=== PATIENT | female | born 1945 | race Caucasian/White ===

== ENCOUNTER 2017-12-17 14:25 | Inpatient (IN) | payer MEDICARE, OTHER ==
[2017-12-17] MEDS ORDERED: Diltiazem 125 MG/25 ML ONE (14:40)
[2017-12-17] MEDS ORDERED: traMADol HCl 50 MG TAB ONE (16:10)
[2017-12-17] MEDS ORDERED: Morphine 2 MG/ML SYRINGE ONE (18:13)
[2017-12-17] MEDS ORDERED: Acetaminophen 325 MG TAB PO PRN (20:01)
[2017-12-17] MEDS ORDERED: Ondansetron ODT 4 MG TAB SL PRN (20:01)
[2017-12-17] MEDS ORDERED: Ondansetron HCl/PF 4 MG/2 ML Vial IVP PRN (20:01)
[2017-12-17 21:51] VITALS: BMI 24.5
[2017-12-18] MEDS ORDERED: Acetaminophen 325 MG TAB PO PRN (00:01)
[2017-12-18] MEDS ORDERED: HYDROcodone/Acetaminophen 10/325 mg Tablet PO PRN (00:01)
[2017-12-18] MEDS ORDERED: Ondansetron ODT 4 MG TAB PO PRN (00:01)
[2017-12-18] MEDS ORDERED: Diltiazem 125 MG in Sodium Chloride 0.9% 100 ML IVPB SCH (00:01)
[2017-12-18] MEDS ORDERED: Enoxaparin Sodium 80 MG/0.8 ML SYRINGE SC SCH (00:30)
[2017-12-18 01:01] LABS: CKMB 1.6 ng/mL (0-6.6); Troponin I 0.015 ng/mL (< 0.028)
[2017-12-18 04:41] LABS: #Eosinphils 0.1 thou/uL (0.0-0.7); #Lymphocytes 1.2 thou/uL (1.20-3.40); #Monocytes 0.7 thou/uL (0.11-0.59); #Neutrophils 5.5 thou/uL (1.40-6.50); %Basophils 0.1 % (0.0-1.0); %Eosinophils 1.5 % (0.0-10.0); %Lymphocytes 15.7 % (21.0-51.0); %Monocytes 9.7 % (0.0-10.0); %Neutrophils 73.1 % (42.0-75.0); Hemoglobin 11.9 g/dL (12.0-16.0); Mean Corpuscular HGB CONC 32.8 g/dL (32.0-36.0); Mean Corpuscular Hemoglobin 32.9 pg (27.0-31.0); Mean Platelet Volume 8.5 fL (7.4-10.4); Platelet Count 237 thou/uL (130-400); RBC Distribution Width 12.1 % (11.5-14.5); Red Blood Cell (RBC) Count 3.61 mill/uL (4.20-5.40); White Blood Cell (WBC) Count 7.6 thou/uL (4.8-10.8)
[2017-12-18 04:58] LABS: ALT (SGPT) 24 U/L (8-55); AST (SGOT) 20 U/L (5-34); Albumin 3.8 g/dL (3.4-4.8); Alkaline Phosphatase 78 U/L (40-150); Anion Gap 12 mmol/L (10-20); BUN (Urea Nitrogen) 14 mg/dL (9.8-20.1); Calc. Creatinine Clearance 65 mL/min (70-130); Calcium 9.5 mg/dL (7.8-10.44); Carbon Dioxide 25 mmol/L (23-31); Cardiac Risk 4.4 (Less than 4.5); Chloride 106 mmol/L (98-107); Cholesterol 189 mg/dl (< 200 Desired); Estimated GFR-MDRD 65; Globulin 2.6 g/dL (2.4-3.5); Glucose 114 mg/dL (83-110); HDL Cholesterol 43 mg/dL (>60 Neg Risk); LDL Cholesterol, Calculated 130 mg/dL; Magnesium 2.2 mg/dL (1.6-2.6); Potassium 4.8 mmol/L (3.5-5.1); Protein, Total 6.4 g/dL (6.0-8.3); Sodium 138 mmol/L (136-145); Triglycerides 79 mg/dL (Less than 150)
[2017-12-18] MEDS: Levothyroxine Sodium 50 MCG TAB PO SCH (05:34)
--- NOTE | 2017-12-18 06:10 | HP ---
DATE OF ADMISSION: 12/17/2017 TIME OF SERVICE: 2315 hours. CHIEF COMPLAINT: Atrial fibrillation with rapid ventricular response. HISTORY OF PRESENT ILLNESS: Ms. Rojas is a 72-year-old white female with history of stage IV colon cancer, currently in remission status post colectomy in 2011, who at that time developed an episode of atrial fibrillation, later in the ICU for 3 days and a cardiology workup that was apparently unremarkable. She also had COPD, hypertension, hypothyroidism. Patient was in normal state of health until of last week. On that day, she began feeling just overall ill. She actually states that she stayed in bed for pretty of whole weekend. Today around 07:30, day of admission 12/17/2017, she developed palpitations and felt somewhat short of breath. It was similar to a previous atrial fibrillation course a few years ago. She went to an outside Emergency Department in [place]. There, she was found to have atrial fibrillation with RVR. Labs, chest x-ray were done. She was started on Cardizem drip and transferred here. Upon arrival, her rate is better. Blood pressure is stable. She complains of headache, but better with Tylenol. We were called for admission. PRIMARY CARE PHYSICIAN: Dr. Flip Johnson in [place]. PRIMARY SITE SPECIALIST: in [place]. PAST MEDICAL HISTORY: 1. Paroxysmal atrial fibrillation, last episode in 2011. 2. Stage IV colon cancer, currently in remission. 3. Chronic obstructive pulmonary disease. 4. Hypertension. 5. Hypothyroidism. PAST SURGICAL HISTORY: 1. Partial colectomy on 12/26/2011. 2. Cataracts 10 years ago. 3. Hysterectomy, partial followed by complete in about 36 years ago. HOME MEDICATIONS: 1. Verapamil 120 mg p.o. daily. 2. Levothyroxine 50 mcg daily. 3. Gabapentin 300 mg p.o. b.i.d. 4. Lasix 20 mg p.o. daily. 5. Aspirin 81 mg daily. 6. Docusate 100 mg p.o. daily. 7. Advair 250/50 one puff p.o. b.i.d. ALLERGIES: NKDA. FAMILY HISTORY: Negative for clotting disorder. No immune dysfunction. SOCIAL HISTORY: No habits x3. She denied smoking for detention and quit about 8 years ago. REVIEW OF SYSTEMS: A 10-point review of systems was performed, negative for all other systems except as per HPI. PHYSICAL EXAMINATION: VITAL SIGNS: Temperature 98.3, pulse 112, blood pressure 139/94, respiratory rate 18, satting 100% on 2 liters. GENERAL: She is awake. She is alert, she is oriented x3. She is an older white female, appears to be in no acute distress. HEENT: Normocephalic, atraumatic. Pupils equal, round, reactive bilaterally, mucous membrane moist. She had no visible lesions. No thrush. She has bilateral pseudophakia. NECK: Supple, without lymphadenopathy, JVD, or thyromegaly. Normal carotid upstrokes without bruits. LUNGS: Clear. She has no wheezing. No rales or rhonchi. CARDIOVASCULAR: She is irregularly irregular with a normal rate. She has normal S1 and S2. I do not appreciate S3 or S4. No audible murmurs. ABDOMEN: Soft, nontender, nondistended with good bowel sounds. No rebound, rigidity or guarding. EXTREMITIES: No cyanosis or clubbing. Trace pedal edema. She has 1-2+ dorsalis pedis and posterior tibial pulses. SKIN: Warm and well perfused. No rashes or lesions. NEUROLOGIC: Cranial nerves II-XII grossly intact. No focal neurologic deficits. MUSCULOSKELETAL: Normal to inspection. She has no inflamed joints, no palpable effusions. PREOPERATIVE LABORATORY DATA: Sodium 141, potassium 5.0, chloride 101, bicarb 28, BUN 18, creatinine 0.9, glucose of 121, calcium 9.3. Liver function normal. CBC showed a white count of 7.6, hemoglobin 13.0, hematocrit of 41.2, platelet count is 252,000. BNP is elevated at 1560. INR is 1.0. CK-MB of 2.3 and troponin I is undetectable less than 0.05. These were drawn at the outside facility. Chest x-ray showed no acute cardiopulmonary disease. ASSESSMENT AND PLAN: 1. Paroxysmal atrial fibrillation. 2. Atrial fibrillation with rapid ventricular response. Currently rate controlled on Cardizem drip. We will titrate down. The likely transition to p.o. Cardizem in the morning. I have asked Cardiology to evaluate regarding treatment options such as antiarrhythmic versus ablation and assistance and selection of her anticoagulation. 3. History of chronic obstructive pulmonary disease with minimal exacerbation. P.r.n. nebs. No steroids at this time. 4. Stage IV colon cancer, currently in remission status post partial colectomy in 2011. Stable. 5. Hypertension. Patient is on verapamil. Blood pressure has been borderline on the Cardizem drip. We will continue to monitor. The Cardizem drip is about to be turned down from 15 to 10 per protocol. 6. Hypothyroidism, on levothyroxine. We will continue. 7. Elevated BNP. The patient certainly could have minimal or mild chronic obstructive pulmonary disease exacerbation with atrial stretch. We will get a 2D echocardiogram to better assess her cardiac function. MTDD
[2017-12-18] MEDS ORDERED: Prevnar 13-Val Conj/PF 0.5 ML SYRINGE IM ONE (08:00)
[2017-12-18] MEDS ORDERED: FLU VACC TS2017-18 (>65YR) 0.5 ML SYRINGE IM ONE (08:00)
--- NOTE | 2017-12-18 09:30 | RAD ---
CHEST ONE VIEW: History: Cough and congestion. FINDINGS: No comparison. Cardiac silhouette is magnified and upper limits of normal in size. Pulmonary vasculat ure is also upper limits of normal. Patchy bibasilar infiltrates are present, right greater than left . Mediastinum is midline with aortic calcification. There is no evidence of pneumothorax. Cardiac mon itor leads overlie the chest. IMPRESSION: 1. Patchy bibasilar infiltrates, right greater than left. Clinical correlation regarding other signs and symptoms of bibasilar pneumonitis is required. Continued radiographic follow up is suggested. 2. Atherosclerosis. POS: [facility]
[2017-12-18] MEDS: Aspirin 81 mg Enteric Coated Tablet PO SCH (09:41)
[2017-12-18] MEDS: Famotidine 20 MG TAB PO SCH ×2 (09:42→20:06)
[2017-12-18] MEDS: Furosemide 20 MG TAB PO SCH (09:42)
[2017-12-18] MEDS: Gabapentin 300 MG CAP PO SCH ×2 (09:42→20:06)
[2017-12-18] MEDS: HYDROcodone/Acetaminophen 5/325 mg Tablet PO PRN ×2 (09:45→16:14)
[2017-12-18 09:54] LABS: CKMB 1.6 ng/mL (0-6.6); Troponin I 0.011 ng/mL (< 0.028)
--- NOTE | 2017-12-18 10:49 | CON ---
DATE OF CONSULTATION: 12/18/2017 This is a 72-year-old female from [place], [place] who recently moved from [place], presents wit h a several day history of shortness of breath, cough, wheezing and palpitation. She has known history of atrial fibrillation. She has no local physician over here, but presented via her [place] primary care doctor over there is Dr. Johnson. She has smoked a pack and a half almost 50 years, quit smoking several years ago. No previous histor y of TB, pneumonia or bronchial asthma. She was coughing up some blood tinged sputum, yellow sputum, but no fever or chills. She says on most days she can walk a mile without getting markedly short of breath. PAST MEDICAL HISTORY: 1. Chronic atrial fibrillation. 2. Chronic obstructive pulmonary disease. 3. Tobacco abuse. 4. Colon cancer stage IV. Surprisingly, she had chemotherapy only for 6 weeks. She had surgery wit h resection of extensive metastatic lymph nodes that were positive, but she has been disease free for the last several years. 5. Additionally, she has history of hypothyroidism. PAST SURGICAL HISTORY: Colon resection and hysterectomy. MEDICATIONS: From home includes verapamil 120, Lasix 20, gabapentin 300, omeprazole 20, Cozaar 50, S ynthroid 50, aspirin 81. ALLERGIES: CODEINE. SOCIAL/FAMILY HISTORY: Unremarkable. REVIEW OF SYSTEMS: Ten point negative. PHYSICAL EXAMINATION: VITAL SIGNS: Blood pressure 190/60, sats 94% on 2 liters, respiration 20, temperature 96. CHEST: Chest revealed bilateral crackles. CARDIAC: Normal S1-S2. No gallops. ABDOMEN: Soft. No masses. LABORATORY: White count 7000, H&H 11 and 36, platelet count normal. Electrolytes are normal. X-ray shows infiltrates bilaterally, possibly pneumonia, superimposed congestive heart failure. IMPRESSION: 1. Severely bronchitis, possibly pneumonia. 2. Atrial fibrillation. 3. Congestive heart failure. 4. Tobacco abuse. 5. Colon cancer. 6. Hypothyroidism. PLAN: Antibiotic was initiated. Continue Cardizem, Lovenox, nebulizer treatments. I will follow.
--- NOTE | 2017-12-18 11:57 | PDOC.PN ---
- Subjective Encounter Start Date: 12/18/17 Encounter Start Time: 08:45 Subjective: no c/o palp or chest pain -: has sob - Objective Resuscitation Status: Resuscitation Status FULL:Full Resuscitation MAR Reviewed: Yes Vital Signs & Weight: Vital Signs (12 hours) Temp Pulse Resp BP BP Pulse Ox 12/18/17 08:00 99.6 F 99 18 119/60 93 L 12/18/17 03:45 98.2 F 85 18 91/48 L 92 L 12/18/17 00:01 98.5 F 94 20 89/42 L 94 L Weight Weight 156 lb 8 oz I&O: 12/17/17 12/18/17 12/19/17 06:59 06:59 06:59 Intake Total 432 Balance 432 Result Diagrams: 12/18/17 03:56 12/18/17 03:56 Phys Exam - Physical Examination HEENT: PERRLA, moist MMs Neck: no JVD, supple Respiratory: no wheezing, no rales Cardiovascular: no significant murmur, irregular Gastrointestinal: soft, non-tender, positive bowel sounds Musculoskeletal: no edema, pulses present Neurological: non-focal, moves all 4 limbs Psychiatric: A&O x 3 Dx/Plan (1) Atrial flutter Code(s): I48.92 - UNSPECIFIED ATRIAL FLUTTER Status: Acute (2) Afib Code(s): I48.91 - UNSPECIFIED ATRIAL FIBRILLATION Status: Chronic Qualifiers: Atrial fibrillation type: paroxysmal Qualified Code(s): I48.0 - Paroxysmal atrial fibrillation (3) PNA (pneumonia) Code(s): J18.9 - PNEUMONIA, UNSPECIFIED ORGANISM Status: Acute Qualifiers: Pneumonia type: due to unspecified organism Laterality: bilateral (4) COPD (chronic obstructive pulmonary disease) Status: Chronic Qualifiers: COPD type: COPD with acute exacerbation Qualified Code(s): J44.1 - Chronic obstructive pulmonary disease with (acute) exacerbation (5) HTN (hypertension) Code(s): I10 - ESSENTIAL (PRIMARY) HYPERTENSION Status: Chronic Qualifiers: Hypertension type: essential hypertension Qualified Code(s): I10 - Essential (primary) hypertension (6) Hypothyroidism Code(s): E03.9 - HYPOTHYROIDISM, UNSPECIFIED Status: Chronic Qualifiers: Hypothyroidism type: unspecified Qualified Code(s): E03.9 - Hypothyroidism , unspecified (7) H/O malignant neoplasm of colon Code(s): Z85.038 - PERSONAL HISTORY OF MALIGNANT NEOPLASM OF LARGE INTESTINE Status: Chronic Comment: prior h/o colectomy - Plan has atrial flutter this am -: cardio consult, echo got done this am -: is on cardizem drip, lovenox 70mg q12h -: doxy, prednisone and nebs -: watch for hypotension with sbp around 100, has oral lasix 20mg (bnp 1560) * . Review of Systems - Medications/Allergies Allergies/Adverse Reactions: Allergies Allergy/AdvReac Type Severity Reaction Status Date / Time codeine Allergy Verified 12/18/17 03:51 Medications: Current Medications Acetaminophen (Tylenol) 650 mg PO Q4H PRN PRN Reason: Headache/Fever or Pain Last Admin: 12/18/17 02:38 Dose: 650 mg Hydrocodone Bitart/Acetaminophen ([place] 10/325) 1 tab PO Q4H PRN PRN Reason: Severe Pain (7-10) Hydrocodone Bitart/Acetaminophen ([place] 5/325) 1 tab PO Q4H PRN PRN Reason: Moderate Pain (4-6) Last Admin: 12/18/17 09:45 Dose: 1 tab Albuterol/Ipratropium (Duoneb) 3 ml NEB Q4H PRN PRN Reason: SOB &/or Wheezing Albuterol/Ipratropium (Duoneb) 3 ml NEB [id number] [facility] Aspirin (Ecotrin) 81 mg PO DAILY [facility] Last Admin: 12/18/17 09:41 Dose: 81 mg Doxycycline Hyclate (Vibramycin) 100 mg PO BID [facility] Enoxaparin Sodium (Lovenox) 70 mg SC 0900,2100 [facility] Famotidine (Pepcid) 20 mg PO BID [facility] Last Admin: 12/18/17 09:42 Dose: 20 mg Furosemide (Lasix) 20 mg PO DAILY [facility] Last Admin: 12/18/17 09:42 Dose: 20 mg Gabapentin (Neurontin) 300 mg PO BID [facility] Last Admin: 12/18/17 09:42 Dose: 300 mg Diltiazem HCl 125 mg/ Sodium (Chloride) 125 mls @ 0 mls/hr IVPB INF RILEY; Titrate PRN Reason: Protocol Last Admin: 12/18/17 02:38 Dose: 125 mls Levothyroxine Sodium (Synthroid) 50 mcg PO 0600 [facility] Last Admin: 12/18/17 05:34 Dose: 50 mcg Ondansetron HCl (Zofran Odt) 4 mg PO Q6H PRN PRN Reason: Nausea/Vomiting Prednisone (Prednisone) 20 mg PO QAM-WM RILEY Sodium Chloride (Flush - Normal Saline) 10 ml IVF Q12HR RILEY Sodium Chloride (Flush - Normal Saline) 10 ml IVF PRN PRN PRN Reason: Saline Flush
[2017-12-18] MEDS: Doxycycline 100 MG CAP PO SCH ×2 (12:01→20:05)
[2017-12-18] MEDS: Enoxaparin Sodium 80 MG/0.8 ML SYRINGE SC SCH ×2 (12:01→20:05)
[2017-12-18 16:24] LABS: CKMB 1.3 ng/mL (0-6.6); Troponin I 0.019 ng/mL (< 0.028)
[2017-12-18] MEDS ORDERED: Digoxin 0.5 MG/2 ML AMP SLOW IVP SCH (17:15)
--- NOTE | 2017-12-18 21:29 | CON ---
DATE OF CONSULTATION: 12/18/2017 INDICATION FOR CONSULTATION: A 72-year-old female with atrial fibrillation with rapid ventricular re sponse. HISTORY OF PRESENT ILLNESS: This very pleasant 72-year-old female who was admitted with COPD exacerb ation, possible pneumonia, had been treated with antibiotics. She has had a history and she was also noted to be in atrial fibrillation with rapid ventricular response. She had not been feeling well f or the last couple of days and noticed that her heart had been having rapid rates with palpitations a nd she did have an episode of atrial fibrillation approximately 6 years ago after having colon surger y. At this time, she has been placed on IV diltiazem, the rate is better. The rate is being actuall y titrated down where she was on 15 mg per hour originally but now is on 7.5. She also had a stress test about 3 years ago at which time she also developed atrial fibrillation. Otherwise, she has been doing quite well and has not been on any oral anticoagulation for the atrial fibrillation or antiarr hythmic medication except for some verapamil, which certainly could control the rate if should she hebert ve atrial fibrillation. PAST MEDICAL HISTORY: Significant for colon cancer and also colon resection in 2011, hypothyroidism, hypertension, gastroesophageal reflux disease, COPD. She did have a history of atrial fibrillation in the past. She has had a hysterectomy, cataract surgery, and stage IV colon cancer. SOCIAL HISTORY: She is . She has children, who are alive and well. She smoked 1-1/2 packs a day for many years. She stopped several years ago at that time for colon surgery. FAMILY HISTORY: Noncontributory. MEDICATIONS: At home included Lasix, verapamil, omeprazole, Cozaar, levothyroxine, and aspirin. ALLERGIES: CODEINE. REVIEW OF SYSTEMS: She complains of shortness of breath. Otherwise, 12 point review of systems rela tively unremarkable except she does wear some glasses and she has the systems as noted above in the h istory of present illness. PHYSICAL EXAMINATION: GENERAL: Reveals a well-developed, well-nourished female. VITAL SIGNS: Blood pressure 124/61, heart rate is 99-103 and is irregular with atrial fibrillation, temperature is 99.4. HEENT: Shows head to be normocephalic and atraumatic. Carotid pulses are present. I do not hear an y bruits. CHEST: Has some decreased breath sounds at the bases, otherwise there was no significant wheezing or rales noted. Breath sounds are somewhat distant. CARDIOVASCULAR: Exam reveals an irregularly irregular rhythm. I do not hear any significant murmurs , heaves, thrills, bruits or rubs. ABDOMEN: Soft and nontender. Positive bowel sounds present. No organomegaly or masses are noted. Femoral pulses are present. EXTREMITIES: Showed no clubbing, cyanosis or edema. Pedal pulses are also present. NEUROLOGIC: The patient appears to be fully intact. SKIN: Warm and dry. Her EKG shows atrial fibrillation with a rapid ventricular response, but no acute ST segment elevatio n to indicate ischemia. Her cardiac enzymes are unremarkable. Her LDL was 130. Chest x-ray shows p ossible pneumonia with the right greater than left. IMPRESSION: 1. Elderly female who was admitted with chronic obstructive pulmonary disease exacerbation, atrial f ibrillation with rapid ventricular response. At this time, we will continue to control the heart rat e. She will need to have some time of oral anticoagulation and we do not know exactly when she conve rted back to atrial fibrillation, but most likely associated with chronic obstructive pulmonary disea se. Once she is under good control and has had an oral anticoagulation for at least 4-6 weeks, we wi ll consider cardioversion of atrial fibrillation back to normal sinus rhythm either medically by usin g antiarrhythmic medication such as Multaq or she may need to undergo an ablation of atrial fibrillat ion or just rate control with verapamil and possibly digoxin, which I will add at this time. Since t he heart rate remains elevated on the diltiazem at this time, we can certainly switch her back verapa mil on her discharge. At this time, otherwise, we will await the results of the echocardiogram prior to making final decision. 2. History of hypertension, which is under good control at this time. As far as her other medical p roblems, this will be dealt with by the primary care service.
[2017-12-19] MEDS: HYDROcodone/Acetaminophen 5/325 mg Tablet PO PRN (00:25)
[2017-12-19] MEDS: Digoxin 0.5 MG/2 ML AMP SLOW IVP SCH ×2 (00:26→05:25)
[2017-12-19] MEDS: Levothyroxine Sodium 50 MCG TAB PO SCH (05:26)
[2017-12-19] MEDS ORDERED: Digoxin 0.125 MG TAB PO SCH ×2 (09:00→12:30)
--- NOTE | 2017-12-19 09:23 | PRG ---
DATE OF SERVICE: 12/19/2017 This morning is complaining of epistaxis. Dry nose. PHYSICAL EXAMINATION: VITAL SIGNS: Sat 95% on 2 liters, temperature 98, blood pressure 94/34. CHEST: Chest revealed bilateral crackles, rhonchi. CARDIAC: Normal S1-S2. No gallops. ABDOMEN: Soft. No masses. IMPRESSION: 1. Severe chronic obstructive pulmonary disease. 2. Atrial fibrillation. 3. History of breast cancer. 4. Epistaxis. PLAN: Give some saline nasal spray, otherwise continue neb treatments, steroids. I will follow while in the [facility].
[2017-12-19] MEDS: Furosemide 20 MG TAB PO SCH (09:24)
[2017-12-19] MEDS: predniSONE 20 MG TAB PO SCH (09:24)
[2017-12-19] MEDS: Doxycycline 100 MG CAP PO SCH ×2 (09:24→20:28)
[2017-12-19] MEDS: Famotidine 20 MG TAB PO SCH ×2 (09:24→20:28)
[2017-12-19] MEDS: Aspirin 81 mg Enteric Coated Tablet PO SCH (09:24)
[2017-12-19] MEDS: Enoxaparin Sodium 80 MG/0.8 ML SYRINGE SC SCH (09:25)
--- NOTE | 2017-12-19 12:15 | PDOC.CTH ---
<Tiesha Guido - Last Filed: 12/19/17 12:24> Cardiology Progress Note - Subjective The pt seen and examined. No overnight events. No cardiac complaints. The pt requested to stop Lovenox and start OAC. - Objective Vital Signs Temp Pulse Resp BP BP Pulse Ox 12/19/17 11:58 98.7 F 85 20 97/53 L 95 12/19/17 09:24 100 12/19/17 08:00 98.4 F 100 18 2 L 12/19/17 07:59 95 12/19/17 07:57 100 18 95 12/19/17 07:39 98.4 F 73 20 94/34 L 96 12/19/17 05:25 86 12/19/17 04:56 97.5 F L 79 18 94/54 L 90 L 12/19/17 00:26 102 H Weight 155 lb 8 oz 12/18/17 12/19/17 12/20/17 06:59 06:59 06:59 Intake Total 432 1380 Output Total 1250 Balance 432 130 - Physical Examination General/Neuro: alert & oriented x3 Neck: no JVD present Lungs: other: (diminished at bases) Heart: other: (irregular) Abdomen: soft Extremities: other: (No edema) - Telemetry Telemetry Rhythm: Afib 90-110s - Labs Result Diagrams: 12/18/17 03:56 12/18/17 03:56 Troponin/CKMB CK-MB (CK-2) 1.3 ng/mL (0-6.6) 12/18/17 15:50 Troponin I 0.019 ng/mL (< 0.028) 12/18/17 15:50 - Assessment/Plan 1. Recurrent Paroxysmal Afib with RVR - Hx of Afib in 2012 after Colon resection ; Afib 90-110s with Digoxin 0.125mg daily and Diltiazem 7.5mg/h; Change Diltiazem to 180mg daily, stop Lovenox and start Eliquis 5mg BID; Increase Digoxin from 0.125mg to 0.25mg Daily; cont. monitor 2. COPD exacerbation with Bilat PNA - stable with NC; managed by PCP and assistant press operator 3. HTN - hypotensive; cont. monitor 4. Hypothyroidism - managed by PCP 5. Hx of Colon Ca and resection in 2011 6. Ex-smoker, quit in 2011 MAR reviewed * The list of OACs given; the pt refused to start Coumadin. * Possible Cardioversion within 4-6wks if she remains in Afib Review of Systems - Review of Systems Constitutional: reports: no symptoms reported EENTM: reports: no symptoms reported Respiratory: reports: see HPI Cardiac (ROS): reports: no symptoms reported ABD/GI: reports: no symptoms reported : reports: no symptoms reported Musculoskeletal: reports: no symptoms reported <Gustavo Barakat - Last Filed: 12/19/17 22:39> Cardiology Progress Note - Objective Vital Signs Temp Pulse Resp BP Pulse Ox 12/19/17 20:16 97.5 F L 125 H 18 89/49 L 94 L 12/19/17 18:38 113 H 16 95 12/19/17 15:22 95 12/19/17 15:00 98.2 F 125 H 20 111/53 L 95 12/19/17 13:50 95 17 93 L 12/19/17 11:58 98.7 F 85 20 97/53 L 95 Weight 155 lb 8 oz 12/18/17 12/19/17 12/20/17 06:59 06:59 06:59 Intake Total 432 1380 Output Total 1250 Balance 432 130 - Labs Result Diagrams: 12/18/17 03:56 12/18/17 03:56 Troponin/CKMB CK-MB (CK-2) 1.3 ng/mL (0-6.6) 12/18/17 15:50 Troponin I 0.019 ng/mL (< 0.028) 12/18/17 15:50 - Assessment/Plan Pt. seen and eval. by me . I agree with the A/P by the INSURANCE SALES ASSISTANT. She remains in Afib. with RVR. Iwill change her back to the verapamil and see if this controls the heart rate better.
--- NOTE | 2017-12-19 12:20 | PDOC.PN ---
- Subjective Encounter Start Date: 12/19/17 Encounter Start Time: 08:30 Subjective: awake, no palp or chest pain -: breathing better - Objective Resuscitation Status: Resuscitation Status FULL:Full Resuscitation MAR Reviewed: Yes Vital Signs & Weight: Vital Signs (12 hours) Temp Pulse Resp BP BP Pulse Ox 12/19/17 11:58 98.7 F 85 20 97/53 L 95 12/19/17 09:24 100 12/19/17 08:00 98.4 F 100 18 2 L 12/19/17 07:59 95 12/19/17 07:57 100 18 95 12/19/17 07:39 98.4 F 73 20 94/34 L 96 12/19/17 05:25 86 12/19/17 04:56 97.5 F L 79 18 94/54 L 90 L 12/19/17 00:26 102 H Weight Weight 155 lb 8 oz I&O: 12/18/17 12/19/17 12/20/17 06:59 06:59 06:59 Intake Total 432 1380 Output Total 1250 Balance 432 130 Result Diagrams: 12/18/17 03:56 12/18/17 03:56 Phys Exam - Physical Examination HEENT: PERRLA, moist MMs Neck: no JVD, supple Respiratory: no rales occ rhonchi+ Cardiovascular: no significant murmur, irregular Gastrointestinal: soft, non-tender, positive bowel sounds Musculoskeletal: no edema, pulses present Neurological: non-focal, moves all 4 limbs Psychiatric: A&O x 3 Dx/Plan (1) Afib Code(s): I48.91 - UNSPECIFIED ATRIAL FIBRILLATION Status: Chronic Qualifiers: Atrial fibrillation type: paroxysmal Qualified Code(s): I48.0 - Paroxysmal atrial fibrillation (2) Atrial flutter Code(s): I48.92 - UNSPECIFIED ATRIAL FLUTTER Status: Acute (3) PNA (pneumonia) Code(s): J18.9 - PNEUMONIA, UNSPECIFIED ORGANISM Status: Acute Qualifiers: Pneumonia type: due to unspecified organism Laterality: bilateral (4) COPD (chronic obstructive pulmonary disease) Status: Chronic Qualifiers: COPD type: COPD with acute exacerbation Qualified Code(s): J44.1 - Chronic obstructive pulmonary disease with (acute) exacerbation (5) HTN (hypertension) Code(s): I10 - ESSENTIAL (PRIMARY) HYPERTENSION Status: Chronic Qualifiers: Hypertension type: essential hypertension Qualified Code(s): I10 - Essential (primary) hypertension (6) Hypothyroidism Code(s): E03.9 - HYPOTHYROIDISM, UNSPECIFIED Status: Chronic Qualifiers: Hypothyroidism type: unspecified Qualified Code(s): E03.9 - Hypothyroidism , unspecified (7) H/O malignant neoplasm of colon Code(s): Z85.038 - PERSONAL HISTORY OF MALIGNANT NEOPLASM OF LARGE INTESTINE Status: Chronic Comment: prior h/o colectomy - Plan afib is mostly rate controlled -: is on cardizem drip at 7.5mg/hr -: oral dig, lovenox 70mg sc q12h -: on doxy, pred and nebs. Sbp around 90's -: ef is 50% with dil LA, may tx to tele if ok with cardio * . Review of Systems - Medications/Allergies Allergies/Adverse Reactions: Allergies Allergy/AdvReac Type Severity Reaction Status Date / Time codeine Allergy Verified 12/18/17 03:51 Medications: Current Medications Acetaminophen (Tylenol) 650 mg PO Q4H PRN PRN Reason: Headache/Fever or Pain Last Admin: 12/18/17 02:38 Dose: 650 mg Hydrocodone Bitart/Acetaminophen ([place] 10/325) 1 tab PO Q4H PRN PRN Reason: Severe Pain (7-10) Hydrocodone Bitart/Acetaminophen ([place] 5/325) 1 tab PO Q4H PRN PRN Reason: Moderate Pain (4-6) Last Admin: 12/19/17 00:25 Dose: 1 tab Albuterol/Ipratropium (Duoneb) 3 ml NEB Q4H PRN PRN Reason: SOB &/or Wheezing Albuterol/Ipratropium (Duoneb) 3 ml NEB [id number] [facility] Last Admin: 12/19/17 07:57 Dose: 3 ml Aspirin (Ecotrin) 81 mg PO DAILY [facility] Last Admin: 12/19/17 09:24 Dose: 81 mg Digoxin (Lanoxin) 0.25 mg PO DAILY [facility] Digoxin (Lanoxin) 0.125 mg PO ONE [facility] Doxycycline Hyclate (Vibramycin) 100 mg PO BID [facility] Last Admin: 12/19/17 09:24 Dose: 100 mg Famotidine (Pepcid) 20 mg PO BID [facility] Last Admin: 12/19/17 09:24 Dose: 20 mg Furosemide (Lasix) 20 mg PO DAILY [facility] Last Admin: 12/19/17 09:24 Dose: 20 mg Gabapentin (Neurontin) 300 mg PO BID [facility] Last Admin: 12/18/17 20:06 Dose: Not Given Diltiazem HCl 125 mg/ Sodium (Chloride) 125 mls @ 0 mls/hr IVPB INF [facility]; Titrate PRN Reason: Protocol Last Admin: 12/18/17 02:38 Dose: 125 mls Levothyroxine Sodium (Synthroid) 50 mcg PO 0600 [facility] Last Admin: 12/19/17 05:26 Dose: 50 mcg Ondansetron HCl (Zofran Odt) 4 mg PO Q6H PRN PRN Reason: Nausea/Vomiting Prednisone (Prednisone) 20 mg PO QAM-WM [facility] Last Admin: 12/19/17 09:24 Dose: 20 mg Sodium Chloride (Flush - Normal Saline) 10 ml IVF Q12HR [facility] Last Admin: 12/18/17 20:07 Dose: Not Given Sodium Chloride (Flush - Normal Saline) 10 ml IVF PRN PRN PRN Reason: Saline Flush Sodium Chloride ([place] Nasal [place] 0.65%) 1 ml EA NARE TID [facility]
[2017-12-19] MEDS: Sodium Chloride 0.65% Nasal 44 ML BOT EA NARE SCH ×2 (15:22→20:30)
[2017-12-19] MEDS: Gabapentin 300 MG CAP PO SCH ×2 (15:23→22:21)
[2017-12-19] MEDS ORDERED: Polyethylene Glycol 3350 17 GM Packet PO PRN (19:25)
[2017-12-19] MEDS ORDERED: Diltiazem HCl 125 MG, Admixture Fee 1 EACH in Sodium Chloride 0.9% 100 ML IVPB SCH (19:30)
[2017-12-19] MEDS: Docusate 100 MG CAP PO SCH (20:28)
[2017-12-19] MEDS ORDERED: Verapamil PM 100 MG CAP PO SCH (21:00)
[2017-12-20] MEDS: Levothyroxine Sodium 50 MCG TAB PO SCH (05:32)
[2017-12-20] MEDS: HYDROcodone/Acetaminophen 5/325 mg Tablet PO PRN ×2 (05:35→17:11)
[2017-12-20] MEDS: Gabapentin 300 MG CAP PO SCH ×2 (07:09→21:01)
--- NOTE | 2017-12-20 08:29 | PDOC.CTH ---
<Tiesha Guido - Last Filed: 12/20/17 08:26> Cardiology Progress Note - Subjective The pt seen and examined. No overnight events. No cardiac complaints. She could feel palpitation, fast HR, and fatigue when her HR was increased before Diltiazm IV was restarted around 1929. She still experiences SOB with movement - Objective Vital Signs Temp Pulse Resp BP BP Pulse Ox 12/20/17 07:00 99.0 F 72 16 121/50 L 96 12/20/17 04:00 97.6 F 80 22 H 113/43 L 95 12/20/17 00:21 86 16 96 12/20/17 00:19 98.7 F 87 16 105/53 L 98 Weight 153 lb 8 oz 12/19/17 12/20/17 12/21/17 06:59 06:59 06:59 Intake Total 1380 678 Output Total 1250 500 Balance 130 178 - Physical Examination General/Neuro: alert & oriented x3 Neck: no JVD present Lungs: other: (diminished at bases) Heart: other: (irregluar) Abdomen: soft Extremities: other: (No edema) - Telemetry Telemetry Rhythm: Afib HR 70-80s - Labs Result Diagrams: 12/18/17 03:56 12/18/17 03:56 Troponin/CKMB CK-MB (CK-2) 1.3 ng/mL (0-6.6) 12/18/17 15:50 Troponin I 0.019 ng/mL (< 0.028) 12/18/17 15:50 - Assessment/Plan 1. Recurrent Paroxysmal Afib with RVR - Hx of Afib in 2011 after Colon resection ; Diltiazem IV was restarted last night around 1929 due to tachycarrdia; HR well controlled with Verapamil 100mg @ HS, Digoxin 0.25mg daily and Diltiazem IV 3mg/h; Change Veraparmil from 100mg to 200mg @ HS; On Eliquis 5mg BID; cont. monitor 2. COPD exacerbation with Bilat PNA - stable with NC; managed by PCP and informatics nurse specialist 3. HTN - improving; holding BBlocker due to hx of COPD exacerbation; cont. monitor 4. Hypothyroidism - managed by PCP 5. Hx of Colon Ca and resection in 2011 6. Ex-smoker, quit in 2011 MAR reviewed * Possible Cardioversion within 4-6wks if she remains in Afib Review of Systems - Review of Systems Constitutional: reports: no symptoms reported EENTM: reports: no symptoms reported Respiratory: reports: see HPI Cardiac (ROS): reports: see HPI ABD/GI: reports: no symptoms reported : reports: no symptoms reported Musculoskeletal: reports: no symptoms reported <Gustavo Barakat - Last Filed: 12/20/17 14:00> Cardiology Progress Note - Objective Vital Signs Temp Pulse Resp BP BP Pulse Ox 12/20/17 11:00 99.2 F 77 17 104/43 L 95 12/20/17 09:23 82 12/20/17 08:41 74 15 96 12/20/17 08:00 99.0 F 82 14 96 12/20/17 07:00 99.0 F 72 16 121/50 L 96 12/20/17 04:00 97.6 F 80 22 H 113/43 L 95 Weight 153 lb 8 oz 12/19/17 12/20/17 12/21/17 06:59 06:59 06:59 Intake Total 1380 678 Output Total 1250 500 Balance 130 178 - Labs Result Diagrams: 12/18/17 03:56 12/18/17 03:56 Troponin/CKMB CK-MB (CK-2) 1.3 ng/mL (0-6.6) 12/18/17 15:50 Troponin I 0.019 ng/mL (< 0.028) 12/18/17 15:50 - Assessment/Plan Pt. seen and eval. by me. i agree with the A/P by the SPECIAL AGENT.Still trying to find po meds for rate control.
[2017-12-20] MEDS ORDERED: Digoxin 0.25 MG TAB PO SCH ×2 (09:00→13:59)
[2017-12-20] MEDS: Docusate 100 MG CAP PO SCH ×2 (09:21→21:05)
[2017-12-20] MEDS: Doxycycline 100 MG CAP PO SCH ×2 (09:23→21:06)
[2017-12-20] MEDS: Aspirin 81 mg Enteric Coated Tablet PO SCH (09:24)
[2017-12-20] MEDS: Furosemide 20 MG TAB PO SCH (09:24)
[2017-12-20] MEDS: Famotidine 20 MG TAB PO SCH ×2 (09:24→21:06)
[2017-12-20] MEDS: predniSONE 20 MG TAB PO SCH (09:24)
[2017-12-20] MEDS: Sodium Chloride 0.65% Nasal 44 ML BOT EA NARE SCH ×3 (09:25→21:06)
[2017-12-20] MEDS ORDERED: Digoxin 0.125 MG TAB PO SCH (14:00)
--- NOTE | 2017-12-20 15:25 | PDOC.PN ---
- Subjective Encounter Start Date: 12/20/17 Encounter Start Time: 12:15 Subjective: no sob, still has palp on mild exertion - Objective Resuscitation Status: Resuscitation Status FULL:Full Resuscitation MAR Reviewed: Yes Vital Signs & Weight: Vital Signs (12 hours) Temp Pulse Resp BP BP Pulse Ox 12/20/17 14:09 92 12/20/17 11:00 99.2 F 77 17 104/43 L 95 12/20/17 09:23 82 12/20/17 08:41 74 15 96 12/20/17 08:00 99.0 F 82 14 96 12/20/17 07:00 99.0 F 72 16 121/50 L 96 12/20/17 04:00 97.6 F 80 22 H 113/43 L 95 Weight Weight 153 lb 8 oz I&O: 12/19/17 12/20/17 12/21/17 06:59 06:59 06:59 Intake Total 1380 678 Output Total 1250 500 Balance 130 178 Result Diagrams: 12/18/17 03:56 12/18/17 03:56 Phys Exam - Physical Examination HEENT: PERRLA, moist MMs Neck: no JVD, supple Respiratory: no wheezing, no rales Cardiovascular: no significant murmur, irregular Gastrointestinal: soft, non-tender, positive bowel sounds Musculoskeletal: no edema, pulses present Neurological: non-focal, moves all 4 limbs Psychiatric: A&O x 3 Dx/Plan (1) Afib Code(s): I48.91 - UNSPECIFIED ATRIAL FIBRILLATION Status: Chronic Qualifiers: Atrial fibrillation type: paroxysmal Qualified Code(s): I48.0 - Paroxysmal atrial fibrillation (2) Atrial flutter Code(s): I48.92 - UNSPECIFIED ATRIAL FLUTTER Status: Acute (3) PNA (pneumonia) Code(s): J18.9 - PNEUMONIA, UNSPECIFIED ORGANISM Status: Acute Qualifiers: Pneumonia type: due to unspecified organism Laterality: bilateral (4) COPD (chronic obstructive pulmonary disease) Status: Chronic Qualifiers: COPD type: COPD with acute exacerbation Qualified Code(s): J44.1 - Chronic obstructive pulmonary disease with (acute) exacerbation (5) HTN (hypertension) Code(s): I10 - ESSENTIAL (PRIMARY) HYPERTENSION Status: Chronic Qualifiers: Hypertension type: essential hypertension Qualified Code(s): I10 - Essential (primary) hypertension (6) Hypothyroidism Code(s): E03.9 - HYPOTHYROIDISM, UNSPECIFIED Status: Chronic Qualifiers: Hypothyroidism type: unspecified Qualified Code(s): E03.9 - Hypothyroidism , unspecified (7) H/O malignant neoplasm of colon Code(s): Z85.038 - PERSONAL HISTORY OF MALIGNANT NEOPLASM OF LARGE INTESTINE Status: Chronic Comment: prior h/o colectomy - Plan is back of cardizem drip from last evening -: on digoxin, cardizem and verapamil plus eliquis -: doxy, prednisone -: amb as tolerated -: tx to telemetry * . Review of Systems - Medications/Allergies Allergies/Adverse Reactions: Allergies Allergy/AdvReac Type Severity Reaction Status Date / Time codeine Allergy Verified 12/18/17 03:51 Medications: Current Medications Acetaminophen (Tylenol) 650 mg PO Q4H PRN PRN Reason: Headache/Fever or Pain Last Admin: 12/18/17 02:38 Dose: 650 mg Hydrocodone Bitart/Acetaminophen ([place] 10/325) 1 tab PO Q4H PRN PRN Reason: Severe Pain (7-10) Hydrocodone Bitart/Acetaminophen ([place] 5/325) 1 tab PO Q4H PRN PRN Reason: Moderate Pain (4-6) Last Admin: 12/20/17 05:35 Dose: 1 tab Albuterol/Ipratropium (Duoneb) 3 ml NEB Q4H PRN PRN Reason: SOB &/or Wheezing Albuterol/Ipratropium (Duoneb) 3 ml NEB [id number] [facility] Last Admin: 12/20/17 08:41 Dose: 3 ml Aspirin (Ecotrin) 81 mg PO DAILY [facility] Last Admin: 12/20/17 09:24 Dose: 81 mg Digoxin (Lanoxin) 0.125 mg PO QAM [facility] Docusate Sodium (Colace) 100 mg PO BID [facility] Last Admin: 12/20/17 09:21 Dose: 100 mg Doxycycline Hyclate (Vibramycin) 100 mg PO BID [facility] Last Admin: 12/20/17 09:23 Dose: 100 mg Famotidine (Pepcid) 20 mg PO BID [facility] Last Admin: 12/20/17 09:24 Dose: 20 mg Furosemide (Lasix) 20 mg PO DAILY [facility] Last Admin: 12/20/17 09:24 Dose: 20 mg Gabapentin (Neurontin) 300 mg PO BID [facility] Last Admin: 12/20/17 07:09 Dose: Not Given Levothyroxine Sodium (Synthroid) 50 mcg PO 0600 [facility] Last Admin: 12/20/17 05:32 Dose: 50 mcg Ondansetron HCl (Zofran Odt) 4 mg PO Q6H PRN PRN Reason: Nausea/Vomiting Polyethylene Glycol (Miralax) 17 gm PO DAILYPRN PRN PRN Reason: CONSTIPATION Prednisone (Prednisone) 20 mg PO QAM-WM [facility] Last Admin: 12/20/17 09:24 Dose: 20 mg Sodium Chloride (Flush - Normal Saline) 10 ml IVF Q12HR [facility] Last Admin: 12/20/17 09:25 Dose: 10 ml Sodium Chloride (Flush - Normal Saline) 10 ml IVF PRN PRN PRN Reason: Saline Flush Sodium Chloride ([place] Nasal [place] 0.65%) 1 ml EA NARE TID [facility] Last Admin: 12/20/17 14:08 Dose: 1 spr Verapamil HCl (Verelan Pm) 200 mg PO HS [facility]
--- NOTE | 2017-12-20 15:38 | PRG ---
DATE OF SERVICE: 12/20/2017 SUBJECTIVE: Ms. Arsenio Rojas, this morning, awake, alert and responsive. She denies any difficulty breathing. OBJECTIVE: VITAL SIGNS: Blood pressure 121/50, pulse is 72 on Cardizem, temperature 99, sats are 96% on 2 liter s. CHEST: Decreased breath sounds, no wheezing. CARDIAC: Normal S1, S2. No gallops. ABDOMEN: Soft, no masses. IMPRESSION: 1. Chronic obstructive pulmonary disease. 2. Bronchitis. 3. Supraventricular tachycardia. 4. Atrial fibrillation. PLAN: Continue prednisone, neb treatments, steroids. We will follow.
[2017-12-20] MEDS ORDERED: Verapamil PM 100 MG CAP PO SCH (21:00)
[2017-12-20] MEDS: Verapamil PM 100 MG CAP PO SCH (21:07)
[2017-12-21] MEDS: HYDROcodone/Acetaminophen 5/325 mg Tablet PO PRN ×2 (03:28→17:03)
[2017-12-21] MEDS: Levothyroxine Sodium 50 MCG TAB PO SCH (06:13)
[2017-12-21] MEDS: Sodium Chloride 0.65% Nasal 44 ML BOT EA NARE SCH ×3 (07:58→20:29)
[2017-12-21] MEDS: Digoxin 0.125 MG TAB PO SCH (07:59)
[2017-12-21] MEDS: Doxycycline 100 MG CAP PO SCH ×2 (07:59→20:29)
[2017-12-21] MEDS: Aspirin 81 mg Enteric Coated Tablet PO SCH (08:00)
[2017-12-21] MEDS: Docusate 100 MG CAP PO SCH ×2 (08:00→20:29)
[2017-12-21] MEDS: Furosemide 20 MG TAB PO SCH (08:00)
[2017-12-21] MEDS: Famotidine 20 MG TAB PO SCH ×2 (08:00→20:29)
[2017-12-21] MEDS: predniSONE 20 MG TAB PO SCH (08:00)
[2017-12-21] MEDS: Gabapentin 300 MG CAP PO SCH ×2 (08:01→20:33)
--- NOTE | 2017-12-21 10:38 | PDOC.PN ---
- Subjective Encounter Start Date: 12/21/17 Encounter Start Time: 08:15 Subjective: no sob or chest pain - Objective Resuscitation Status: Resuscitation Status FULL:Full Resuscitation MAR Reviewed: Yes Vital Signs & Weight: Vital Signs (12 hours) Temp Pulse Resp BP Pulse Ox 12/21/17 07:59 73 12/21/17 07:35 97 12/21/17 07:32 76 12 12/21/17 07:00 96 F L 82 18 123/59 L 95 12/21/17 04:00 97.9 F 78 18 127/61 95 Weight Weight 153 lb I&O: 12/20/17 12/21/17 12/22/17 06:59 06:59 06:59 Intake Total 678 600 Output Total 500 1300 Balance 178 -700 Result Diagrams: 12/18/17 03:56 12/18/17 03:56 Phys Exam - Physical Examination HEENT: PERRLA, moist MMs Neck: no JVD, supple Respiratory: no wheezing, no rales Cardiovascular: no significant murmur, irregular Gastrointestinal: soft, non-tender, positive bowel sounds Musculoskeletal: no edema, pulses present Neurological: non-focal, moves all 4 limbs Psychiatric: A&O x 3 Dx/Plan (1) Afib Code(s): I48.91 - UNSPECIFIED ATRIAL FIBRILLATION Status: Chronic Qualifiers: Atrial fibrillation type: paroxysmal Qualified Code(s): I48.0 - Paroxysmal atrial fibrillation Comment: rate controlled (2) Atrial flutter Code(s): I48.92 - UNSPECIFIED ATRIAL FLUTTER Status: Resolved (3) PNA (pneumonia) Code(s): J18.9 - PNEUMONIA, UNSPECIFIED ORGANISM Status: Acute Qualifiers: Pneumonia type: due to unspecified organism Laterality: bilateral (4) COPD (chronic obstructive pulmonary disease) Status: Chronic Qualifiers: COPD type: COPD with acute exacerbation Qualified Code(s): J44.1 - Chronic obstructive pulmonary disease with (acute) exacerbation (5) HTN (hypertension) Code(s): I10 - ESSENTIAL (PRIMARY) HYPERTENSION Status: Chronic Qualifiers: Hypertension type: essential hypertension Qualified Code(s): I10 - Essential (primary) hypertension (6) Hypothyroidism Code(s): E03.9 - HYPOTHYROIDISM, UNSPECIFIED Status: Chronic Qualifiers: Hypothyroidism type: unspecified Qualified Code(s): E03.9 - Hypothyroidism , unspecified (7) H/O malignant neoplasm of colon Code(s): Z85.038 - PERSONAL HISTORY OF MALIGNANT NEOPLASM OF LARGE INTESTINE Status: Chronic Comment: prior h/o colectomy - Plan is on dig and verapamil for afib -: doxy, prednisone for copd/pna -: to ambulate in hallway as tolerated -: oral lasix small dose, sbp is stable around 120's -: normal ef with mod mitral regurg * . Review of Systems - Medications/Allergies Allergies/Adverse Reactions: Allergies Allergy/AdvReac Type Severity Reaction Status Date / Time codeine Allergy Verified 12/18/17 03:51 Medications: Current Medications Acetaminophen (Tylenol) 650 mg PO Q4H PRN PRN Reason: Headache/Fever or Pain Last Admin: 12/18/17 02:38 Dose: 650 mg Hydrocodone Bitart/Acetaminophen ([place] 10/325) 1 tab PO Q4H PRN PRN Reason: Severe Pain (7-10) Hydrocodone Bitart/Acetaminophen ([place] 5/325) 1 tab PO Q4H PRN PRN Reason: Moderate Pain (4-6) Last Admin: 12/21/17 03:28 Dose: 1 tab Albuterol/Ipratropium (Duoneb) 3 ml NEB Q4H PRN PRN Reason: SOB &/or Wheezing Albuterol/Ipratropium (Duoneb) 3 ml NEB [id number] [facility] Last Admin: 12/21/17 07:32 Dose: 3 ml Aspirin (Ecotrin) 81 mg PO DAILY [facility] Last Admin: 12/21/17 08:00 Dose: 81 mg Digoxin (Lanoxin) 0.125 mg PO QAM [facility] Last Admin: 12/21/17 07:59 Dose: 0.125 mg Docusate Sodium (Colace) 100 mg PO BID [facility] Last Admin: 12/21/17 08:00 Dose: 100 mg Doxycycline Hyclate (Vibramycin) 100 mg PO BID [facility] Last Admin: 12/21/17 07:59 Dose: 100 mg Famotidine (Pepcid) 20 mg PO BID [facility] Last Admin: 12/21/17 08:00 Dose: 20 mg Furosemide (Lasix) 20 mg PO DAILY [facility] Last Admin: 12/21/17 08:00 Dose: 20 mg Gabapentin (Neurontin) 300 mg PO BID [facility] Last Admin: 12/21/17 08:01 Dose: Not Given Levothyroxine Sodium (Synthroid) 50 mcg PO 0600 [facility] Last Admin: 12/21/17 06:13 Dose: 50 mcg Ondansetron HCl (Zofran Odt) 4 mg PO Q6H PRN PRN Reason: Nausea/Vomiting Polyethylene Glycol (Miralax) 17 gm PO DAILYPRN PRN PRN Reason: CONSTIPATION Prednisone (Prednisone) 20 mg PO QAM-WM [facility] Last Admin: 12/21/17 08:00 Dose: 20 mg Sodium Chloride (Flush - Normal Saline) 10 ml IVF Q12HR [facility] Last Admin: 12/21/17 08:00 Dose: 10 ml Sodium Chloride (Flush - Normal Saline) 10 ml IVF PRN PRN PRN Reason: Saline Flush Sodium Chloride ([place] Nasal [place] 0.65%) 1 ml EA NARE TID [facility] Last Admin: 12/21/17 07:58 Dose: 1 spr Verapamil HCl (Verelan Pm) 200 mg PO HS [facility] Last Admin: 12/20/17 21:07 Dose: 200 mg
--- NOTE | 2017-12-21 15:31 | PRG ---
DATE OF SERVICE: 12/21/2017 SUBJECTIVE: She feels better and had no acute complaints. PHYSICAL EXAMINATION: VITAL SIGNS: Temperature 98.1, pulse 103, respiration 16, O2 sat 95% on 2 liters, blood pressure 133 /59. HEENT: Unremarkable. NECK: No JVD. CHEST: Fairly clear. CARDIAC: S1 and S2 regular. ABDOMEN: Soft. EXTREMITIES: No edema. ASSESSMENT: 1. Chronic obstructive pulmonary disease with exacerbation. 2. Atrial fibrillation. PLAN: 1. Add Dulera to her breathing treatments as she is on Advair at home. 2. She is staying in the hospital awaiting cardioversion next week.
--- NOTE | 2017-12-21 17:16 | PDOC.CTH ---
<Tiesha Guido - Last Filed: 12/21/17 17:14> Cardiology Progress Note - Subjective The pt seen and examined. No overnight events. No cardiac complaints. She still complains of KAPLAN with walking and taking shower. Her HR is easily up to 100s with mild exertion - Objective Vital Signs Temp Pulse Resp BP Pulse Ox 12/21/17 16:27 97.6 F 125 H 16 120/65 93 L 12/21/17 15:05 95 18 12/21/17 11:42 98.1 F 103 H 16 133/59 L 95 12/21/17 07:59 73 12/21/17 07:35 97 12/21/17 07:32 76 12 12/21/17 07:00 96 F L 82 18 123/59 L 95 Weight 153 lb 12/20/17 12/21/17 12/22/17 06:59 06:59 06:59 Intake Total 678 600 Output Total 500 1300 Balance 178 -700 - Physical Examination General/Neuro: alert & oriented x3 Neck: no JVD present Lungs: CTA Heart: other: (irregluar) Abdomen: soft Extremities: other: (No edema) - Telemetry Telemetry Rhythm: Afib 80s - Labs Result Diagrams: 12/18/17 03:56 12/18/17 03:56 Troponin/CKMB CK-MB (CK-2) 1.3 ng/mL (0-6.6) 12/18/17 15:50 Troponin I 0.019 ng/mL (< 0.028) 12/18/17 15:50 - Assessment/Plan 1. Recurrent Paroxysmal Afib with RVR - Hx of Afib in 2011 after Colon resection ; HR well controlled with Verapamil 200mg @ HS, Digoxin 0.25mg daily, and Eliquis 5mg BID (The pt refused Coumadin); cont. monitor 2. COPD exacerbation with Bilat PNA - stable with NC; however, easy to KAPLAN with movement; managed by PCP and pond scaler 3. HTN - Stable; cont. monitor 4. Hypothyroidism - managed by PCP 5. Hx of Colon Ca and resection in 2011 6. Ex-smoker, quit in 2011 MAR reviewed * Possible Cardioversion within 4-6wks if she remains in Afib Review of Systems - Review of Systems Constitutional: reports: no symptoms reported EENTM: reports: no symptoms reported Respiratory: reports: see HPI Cardiac (ROS): reports: no symptoms reported ABD/GI: reports: no symptoms reported : reports: no symptoms reported Musculoskeletal: reports: no symptoms reported <Gustavo Barakat - Last Filed: 12/22/17 01:11> Cardiology Progress Note - Objective Vital Signs Temp Pulse Resp BP Pulse Ox 12/21/17 20:30 97.4 F L 122 H 18 131/60 94 L 12/21/17 19:29 103 H 16 95 12/21/17 16:27 97.6 F 125 H 16 120/65 93 L 12/21/17 15:05 95 18 Weight 153 lb 12/20/17 12/21/17 12/22/17 06:59 06:59 06:59 Intake Total 678 600 Output Total 500 1300 Balance 178 -700 - Labs Result Diagrams: 12/18/17 03:56 12/18/17 03:56 Troponin/CKMB CK-MB (CK-2) 1.3 ng/mL (0-6.6) 12/18/17 15:50 Troponin I 0.019 ng/mL (< 0.028) 12/18/17 15:50 - Assessment/Plan The pt. was seen and eval. by me. I agree with the A/P by the HOUSEKEEPER HEAD.
[2017-12-21] MEDS: Mometasone/Formoterol 120 PUFF INHALER INH SCH (19:30)
[2017-12-21] MEDS: Verapamil PM 100 MG CAP PO SCH (20:30)
[2017-12-22] MEDS: Levothyroxine Sodium 50 MCG TAB PO SCH (05:27)
--- NOTE | 2017-12-22 07:39 | PDOC.PN ---
- Subjective Encounter Start Date: 12/22/17 Encounter Start Time: 07:37 Subjective: still sob without O2 - Objective Resuscitation Status: Resuscitation Status FULL:Full Resuscitation MAR Reviewed: Yes Vital Signs & Weight: Vital Signs (12 hours) Temp Pulse Resp BP Pulse Ox 12/22/17 04:00 97.9 F 83 16 122/60 99 12/21/17 20:30 97.4 F L 122 H 18 131/60 94 L Weight Weight 157 lb 6.4 oz I&O: 12/21/17 12/22/17 12/23/17 06:59 06:59 06:59 Intake Total 600 250 Output Total 1300 550 Balance -700 -300 Result Diagrams: 12/18/17 03:56 12/18/17 03:56 Phys Exam - Physical Examination Constitutional: NAD Neck: no JVD Respiratory: clear to auscultation bilateral except coarse ralesR lower lung Cardiovascular: no significant murmur, irregular Gastrointestinal: soft, non-tender, positive bowel sounds Musculoskeletal: no edema, pulses present Dx/Plan (1) Atrial fibrillation with rapid ventricular response Code(s): I48.91 - UNSPECIFIED ATRIAL FIBRILLATION Status: Acute (2) COPD exacerbation Code(s): J44.1 - CHRONIC OBSTRUCTIVE PULMONARY DISEASE W (ACUTE) EXACERBATION Status: Acute (3) PNA (pneumonia) Code(s): J18.9 - PNEUMONIA, UNSPECIFIED ORGANISM Status: Acute Qualifiers: Pneumonia type: due to unspecified organism Laterality: bilateral (4) H/O malignant neoplasm of colon Code(s): Z85.038 - PERSONAL HISTORY OF MALIGNANT NEOPLASM OF LARGE INTESTINE Status: Chronic Comment: prior h/o colectomy (5) HTN (hypertension) Code(s): I10 - ESSENTIAL (PRIMARY) HYPERTENSION Status: Chronic Qualifiers: Hypertension type: essential hypertension Qualified Code(s): I10 - Essential (primary) hypertension (6) Hypothyroidism Code(s): E03.9 - HYPOTHYROIDISM, UNSPECIFIED Status: Chronic Qualifiers: Hypothyroidism type: unspecified Qualified Code(s): E03.9 - Hypothyroidism , unspecified - Plan rpt CXR, cont antibx, etc. check O2 sat on RA -: cont dig, verapamil. anticoag -: discuss with cardiology * .
[2017-12-22] MEDS ORDERED: Bisacodyl 10 MG SUPP PR PRN (07:57)
[2017-12-22] MEDS: Aspirin 81 mg Enteric Coated Tablet PO SCH (08:44)
[2017-12-22] MEDS: Docusate 100 MG CAP PO SCH (08:44)
[2017-12-22] MEDS: Digoxin 0.125 MG TAB PO SCH (08:45)
[2017-12-22] MEDS: Doxycycline 100 MG CAP PO SCH (08:45)
[2017-12-22] MEDS: Famotidine 20 MG TAB PO SCH (08:45)
[2017-12-22] MEDS: predniSONE 20 MG TAB PO SCH (08:46)
[2017-12-22] MEDS: Furosemide 20 MG TAB PO SCH (08:46)
[2017-12-22] MEDS: Gabapentin 300 MG CAP PO SCH (08:53)
[2017-12-22] MEDS: Sodium Chloride 0.65% Nasal 44 ML BOT EA NARE SCH (08:54)
[2017-12-22] MEDS: Mometasone/Formoterol 120 PUFF INHALER INH SCH (09:38)
--- NOTE | 2017-12-22 10:34 | RAD ---
CHEST 2 VIEWS: Date: 12/22/17 HISTORY: Pneumonia. COMPARISON: Chest 1 view dated 12/18/17. FINDINGS: Right lower lobe air space opacity is improving, although small opacity does persist. Remainder of jazmín ngs have some scarring in the upper lobes. Cardiac silhouette and mediastinal contours are similar. IMPRESSION: Improving right lower lobe consolidation. POS: KAYH
[2017-12-22 12:14] VITALS: BP 133/62; TEMP 98.5
[2017-12-22] MEDS ORDERED: Apixaban 5 MG TAB PO SCH ×2 (13:00→21:00)
--- NOTE | 2017-12-22 13:18 | PDOC.CTH ---
Cardiology Progress Note - Subjective The pt seen and examined. No overnight events. No cardiac complaints. Her HR mildly increased with movement. She is on RA without any distress. - Objective Vital Signs Temp Pulse Resp BP Pulse Ox 12/22/17 12:00 98.5 F 87 18 133/62 94 L 12/22/17 09:38 83 16 12/22/17 09:34 96 12/22/17 09:32 83 16 12/22/17 08:45 77 12/22/17 08:00 97.5 F L 86 18 95 12/22/17 07:43 97.5 F L 86 18 123/64 95 12/22/17 04:00 97.9 F 83 16 122/60 99 Weight 157 lb 6.4 oz 12/21/17 12/22/17 12/23/17 06:59 06:59 06:59 Intake Total 600 250 Output Total 1300 550 Balance -700 -300 - Physical Examination General/Neuro: alert & oriented x3 Neck: no JVD present Lungs: CTA (diminished at bases) Heart: other: (irregluar) Abdomen: soft Extremities: other: (No edema) - Telemetry Telemetry Rhythm: Afib w/ HR 90s - Labs Result Diagrams: 12/18/17 03:56 12/18/17 03:56 Troponin/CKMB CK-MB (CK-2) 1.3 ng/mL (0-6.6) 12/18/17 15:50 Troponin I 0.019 ng/mL (< 0.028) 12/18/17 15:50 - Assessment/Plan 1. Recurrent Paroxysmal Afib with RVR - Hx of Afib in 2011 after Colon resection ; HR well controlled with Verapamil 200mg @ HS, Digoxin 0.25mg daily, and Eliquis 5mg BID (The pt refused Coumadin); cont. monitor 2. COPD exacerbation with Bilat PNA - stable with RA; managed by PCP and completions manager 3. HTN - Stable; cont. monitor 4. Hypothyroidism - managed by PCP 5. Hx of Colon Ca and resection in 2011 6. Ex-smoker, quit in 2011 MAR reviewed * From Card[facility] [place], the pt is stable to d/c home; The pt will f/u with Dr Barakat' office within 1-2wks and possible Cardioversion within 4-6wks if she remains in Afib. Review of Systems - Review of Systems Constitutional: reports: no symptoms reported EENTM: reports: no symptoms reported Respiratory: reports: see HPI Cardiac (ROS): reports: no symptoms reported ABD/GI: reports: no symptoms reported : reports: no symptoms reported Musculoskeletal: reports: no symptoms reported
--- NOTE | 2017-12-22 13:20 | DIS ---
DATE OF ADMISSION: 12/17/2017 DATE OF DISCHARGE: 12/22/2017 PRIMARY CARE PROVIDER: Dr. Johnson. DISCHARGE DISPOSITION: Home. FINAL DIAGNOSES: Atrial fibrillation with rapid ventricular response, chronic obstructive pulmonary disease, hypertension, hypothyroidism. DISCHARGE MEDICATIONS: New: Prednisone 20 mg p.o. q.a.m. x10 days and then 10 mg a day, Lasix 20 mg a day, doxycycline 100 mg twice a day, Eliquis 5 mg twice a day, digoxin 0.125 mg a day. Old medici [place]: Levothyroxine 50 mcg a day, aspirin 81 mg a day, omeprazole 20 mg twice a day, Advair Diskus 25 0/50 one inhalation twice a day. ALLERGIES: CODEINE. PENDING AT THE TIME OF DISCHARGE: Nothing. CODE STATUS: FULL. HOSPITAL COURSE: [facility] transfer from [place]. She had had an episode of atrial fibrillation in the past in a bout 2011, which has not recurred since her colectomy in 2011. She developed palpitation and shortne ss of breath. She went to hospital in [place] and was transferred here, placed on Cardizem IV. S he had been on verapamil 120 in the past. She was eventually tapered off the Cardizem and placed on verapamil 200 mg at bedtime and digoxin 0.125 a day. Continued on aspirin. She has been started on Eliquis 5 mg twice a day. She was seen in consultation by Dr. Otoniel Sandra, Pulmonology; Dr. Modesta landaverde, Cardiology. Echocardiogram was done, which revealed an EF of 50%-55%. PERTINENT LABORATORY DATA: White count 7.6, hemoglobin 11.9, platelet count 237,000. Comprehensive metabolic profile normal except for glucose of 114. Cardiac enzymes normal. Patient is currently doing well, stable on her current medications, blood pressure 133/62, pulse is r unning 77-87, respirations 16-18. Heart has an irregular rate and rhythm. Monitor shows atrial fibr illation. She is being discharged to follow up with Dr. Johnson in 1 week and follow up with Dr. Nella landaverde per her instructions: The patient will probably have a TERRY and a cardioversion in the near future. It is possible that she will be referred for an ablation. She is currently doing well, stable. Pr escriptions have been written. Thirty-five minutes spent preparing this discharge.
--- NOTE | 2017-12-28 13:42 | EKG ---
Test Reason : Blood Pressure : / mmHG Vent. Rate : 083 BPM Atrial Rate : 076 BPM P-R Int : 000 ms QRS Dur : 072 ms QT Int : 368 ms P-R-T Axes : 000 027 123 degrees QTc Int : 432 ms Atrial fibrillation Nonspecific ST and T wave abnormality , probably digitalis effect Abnormal ECG Confirmed by YANETH DIEGO ([id number]), book editor CYNTHIA FIGUEROA ([id number]) on 12/28/2017 1:42:18 PM Referred By: Confirmed By:YANETH DIEGO
== END 2017-12-22 15:12 | disposition home or self-care (01) | DRG 308 ==
LOC: ERS 14:25 → IMCU/EMU 17:08 → 2NO 12-20 20:50
PROVIDERS: ADMIT Emergency Medicine; ATTEND Emergency Medicine
DX: I48.0 Paroxysmal atrial fibrillation (principal); J18.9 Pneumonia, unspecified organism; J44.0 Chronic obstructive pulmonary disease with (acute) lower respiratory infection; J44.1 Chronic obstructive pulmonary disease with (acute) exacerbation; I48.92 Unspecified atrial flutter; Z79.01 Long term (current) use of anticoagulants; I10 Essential (primary) hypertension; E03.9 Hypothyroidism, unspecified; K21.9 Gastro-esophageal reflux disease without esophagitis; Z87.891 Personal history of nicotine dependence; Z90.49 Acquired absence of other specified parts of digestive tract; Z85.038 Personal history of other malignant neoplasm of large intestine
CPT/HCPCS: 36415; 71045; 71046; 80053; 80061; 82553; 83735; 84484; 85025; 93005; 93306; 94640; 96365; 96366; 96375; A4216; J1160; J2270; J7050; J7506; J7620

== ENCOUNTER 2018-01-21 12:38 | Outpatient (CLI) | payer MEDICARE, OTHER ==
[2018-01-21 13:47] LABS: Mean Corpuscular HGB CONC 34.3 g/dL (32.0-36.0); Mean Corpuscular Hemoglobin 33.4 pg (27.0-31.0); Mean Corpuscular Volume 97.4 fl (81.0-99.0); Mean Platelet Volume 7.7 fL (7.4-10.4); Platelet Count 268 thou/uL (130-400); RBC Distribution Width 12.3 % (11.5-14.5); Red Blood Cell (RBC) Count 3.88 mill/uL (4.20-5.40); White Blood Cell (WBC) Count 6.4 thou/uL (4.8-10.8)
[2018-01-21 13:52] LABS: INR-International Normal Ratio 1.2; Prothrombin Time 15.6 SEC (12.0-14.7)
[2018-01-21 14:26] LABS: Anion Gap 17 mmol/L (10-20); BUN (Urea Nitrogen) 10 mg/dL (9.8-20.1); Calc. Creatinine Clearance 0 mL/min (70-130); Calcium 9.1 mg/dL (7.8-10.44); Carbon Dioxide 20 mmol/L (23-31); Chloride 105 mmol/L (98-107); Estimated GFR-MDRD 68; Glucose 95 mg/dL (83-110); Potassium 4.4 mmol/L (3.5-5.1); Sodium 138 mmol/L (136-145)
== END 2018-01-21 12:39 | disposition home or self-care (01) ==
LOC: LABBT 12:38
PROVIDERS: ATTEND Internal Medicine Cardiovascular Disease
DX: Z01.812 Encounter for preprocedural laboratory examination (principal); I48.1 Persistent atrial fibrillation
CPT/HCPCS: 80048; 85027; 85610

== ENCOUNTER 2018-01-24 07:41 | Day surgery (SDC) | payer MEDICARE, OTHER ==
[2018-01-21 13:09] VITALS: BMI 23.5
[2018-01-24] MEDS ORDERED: PROPOFOL 20 ML ONE (08:07)
[2018-01-24] MEDS ORDERED: Lidocaine 1% PF 5 ML VIAL ONE ×2 (08:09→08:25)
[2018-01-24] MEDS ORDERED: PROPOFOL 200 MG/20 ML VIAL ONE (08:25)
--- NOTE | 2018-01-24 09:51 | ECHO ---
CARDIOLOGY PROCEDURE NOTE: Date: 01/24/18 PROCEDURE: Transesophageal echocardiogram. INDICATION FOR PROCEDURE: This is a 72-year-old female with a history of atrial fibrillation, for which she has been treated wi th medical management, but has continued to have episodes of tachycardia associated with atrial fibri llation with rapid ventricular response. She was advised to undergo transesophageal echocardiogram an d then electrical cardioversion. She has been on Eliquis as well as verapamil and digoxin. PROCEDURE DETAILS: The patient was taken to the recovery area where she underwent short-acting propofol. The transesopha geal probe was easily passed down the distal esophagus. There were no complications or difficulties e ncountered. IMPRESSION: 1. No evidence of left atrial or left atrial appendage thrombus. There was smoke formation noted in the left atrium, however. There was good flow in the left atrial appendage of more than 5 meters per second. 2. Severe mitral valve regurgitation. 3. Moderate to severe tricuspid valve regurgitation. 4. Normal aortic valve without evidence of regurgitation or stenosis. 5. Normal left ventricular systolic function, ejection fraction 55-60%. 6. Left atrial dilatation. 7. Small patent foramen ovale with left to right shunt.
--- NOTE | 2018-01-24 09:59 | OP ---
CARDIOLOGY PROCEDURE NOTE: Date: 01/24/18 PROCEDURE: Electrical cardioversion. INDICATION This is a 72-year-old female with a history of atrial fibrillation, for which she has been treated wi th medical management, but has continued to have episodes of tachycardia associated with atrial fibri llation with rapid ventricular response. She was advised to undergo transesophageal echocardiogram an d electrical cardioversion. She has been on Eliquis as well as verapamil and digoxin. She was taken t o the recovery area where underwent the transesophageal echocardiogram, which showed no evidence of i ntracardiac thrombi or masses. PROCEDURE DETAILS: Using one attempt at 200 joules, the patient was successfully converted back to normal sinus rhythm. However, within a few minutes, she converted back to atrial fibrillation. Then, a second attempt at 3 00 joules was performed, and again she returned to atrial fibrillation within less than 2 minutes. Th en, a third attempt at 300 joules was again attempted and this time she thus far has remained in sinu s rhythm with a heart rate in the 70s and 80s without any difficulties or complications encountered. IMPRESSION: Atrial fibrillation, which was successfully converted to sinus rhythm, with the use of external elec trical cardioversion.
--- NOTE | 2018-01-24 14:01 | DIS ---
She was in the outpatient setting to undergo electrical cardioversion as well as transesophageal echo cardiogram to rule out evidence of intracardiac thrombi or masses prior or left atrial appendage thro mbus prior to undergoing an attempt at cardioversion. Other diagnosis included atrial fibrillation a s well as COPD, gastroesophageal reflux disease, hypertension. DISCHARGE DIAGNOSES: She was in the outpatient setting to undergo electrical cardioversion as well a s transesophageal echocardiogram to rule out evidence of intracardiac thrombi or masses prior or left atrial appendage thrombus prior to undergoing an attempt at cardioversion. Other diagnosis included atrial fibrillation as well as COPD, gastroesophageal reflux disease, hypertension. She was convert ed back to sinus rhythm. PROCEDURE IN HOSPITAL: Included a transesophageal echocardiogram as well as electrocardioversion of atrial fibrillation back to sinus rhythm. FOLLOW UP: Her follow up will be with me in 2-4 weeks in the office. She will continue follow up [facility] Dr. Johnson. DISCHARGE MEDICATIONS: Same as her admission medications. These include digoxin 125 mcg daily, vera pamil SR 120 mg daily, Lasix 20 mg a day, Eliquis 5 mg b.i.d., Advair Diskus for inhalation as previo usly taking, aspirin 81 mg a day and also sennosides, docusate sodium 2 tablets daily, prednisone 20 mg daily as directed by her physician, omeprazole 20 mg 1 b.i.d., levothyroxine 50 mcg daily. I will see her back in the office as noted above in 2-4 weeks. PROCEDURE: Transesophageal echocardiogram and electrical cardioversion of atrial fibrillation back t o sinus rhythm. HOSPITAL COURSE: This very pleasant 72-year-old female who has a history of atrial fibrillation with rapid ventricular response which has been somewhat difficult to control. She has been on Eliquis, v erapamil and digoxin and still continued to have heart rates over 120 to 130 at times. She was advis ed to undergo a cardioversion of the atrial fibrillation. She was taken to the recovery area where s he underwent a transesophageal echocardiogram without difficulties and then electrical cardioversion of atrial fibrillation back to sinus rhythm and required 3 attempts, on the third attempt she seemed to be holding her sinus rhythm. We will continue her medications. I will see her back in the office in the next 2-4 weeks.
--- NOTE | 2018-01-25 08:06 | EKG ---
Test Reason : S/P CARDIOVERSION Blood Pressure : / mmHG Vent. Rate : 082 BPM Atrial Rate : 082 BPM P-R Int : 186 ms QRS Dur : 068 ms QT Int : 362 ms P-R-T Axes : 093 020 144 degrees QTc Int : 422 ms Normal sinus rhythm Abnormal ECG When compared with ECG of 17-DEC-2017 17:11, Sinus rhythm has replaced Atrial fibrillation Nonspecific T wave abnormality now evident in Inferior leads T wave inversion more evident in Lateral leads Confirmed by DR. Namrata HARRIS ([id number]) on 01/25/2018 8:06:39 AM Referred By: RICH Confirmed By:DR. Namrata HARRIS
== END 2018-01-24 10:40 | disposition home or self-care (01) ==
LOC: CCL 07:41
PROVIDERS: ATTEND Internal Medicine Cardiovascular Disease
PROC: 5A2204Z Restoration of Cardiac Rhythm, Single (ICD-10-PCS; principal; 2018-01-24)
DX: I48.1 Persistent atrial fibrillation (principal); J44.9 Chronic obstructive pulmonary disease, unspecified; K21.9 Gastro-esophageal reflux disease without esophagitis; I10 Essential (primary) hypertension; Z79.01 Long term (current) use of anticoagulants
CPT/HCPCS: 92960; 93005; 93010; 93312; J2001; J2704

== ENCOUNTER 2018-03-12 08:08 | Outpatient (CLI) | payer MEDICARE, OTHER ==
[2018-03-12] MEDS ORDERED: Iopamidol 370 76% 100 ML VIAL ONE (10:46)
--- NOTE | 2018-03-12 14:13 | CT ---
CT ANGIOGRAM CARDIAC WITH CONTRAST: DATE: 03/12/18. HISTORY: A 72-year-old female with atrial fibrillation. TECHNIQUE: Precontrast and postcontrast scans, 3 total, centered at the heart, with limited field of view. Unfor tunately, because of tachycardia (heart rate greater than 160 bpm), images are degraded, were obtaine d in multiple separate axial blocks, and there are offsets between each block. FINDINGS: Small pericardial effusion. Coronary artery atherosclerotic calcification: mild at left main, extens chani and heavy at LAD and LCX, and focal in one location in proximal RCA. Atherosclerotic calcificati on of aortic arch without aneurysm. Calcified lymph nodes at bilateral lyle and mediastinum represen ting old (inactive) granulomatous disease. Esophagus is dilated with air on 2 of the scans but not o n one of them. There is no thoracic aortic dissection. No central pulmonary thromboembolism identif ied. Because of the tachycardia, the coronal and sagittal reconstructions have incongruent segment j unctions. This makes it difficult to determine whether or not there is a single right middle pulmona ry vein or double, but it is probably single. If so, this would be pulmonary venous anatomy-type D. There are emphysematous changes throughout the lungs, moderate to severe. IMPRESSION: 1. 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 2. Moderate to severe emphysema. 3. Significant coronary atherosclerotic disease: ICD-10: I25.10. 4. Old granulomatous disease. 5. Small pericardial effusion. POS: [facility]
== END 2018-03-12 08:09 | disposition home or self-care (01) ==
LOC: CT 08:08
PROVIDERS: ATTEND Internal Medicine Cardiovascular Disease
DX: I48.91 Unspecified atrial fibrillation (principal); J43.9 Emphysema, unspecified; I25.10 Atherosclerotic heart disease of native coronary artery without angina pectoris; J90 Pleural effusion, not elsewhere classified
CPT/HCPCS: 75574

== ENCOUNTER 2018-03-12 08:25 | Outpatient (CLI) | payer MEDICARE, OTHER ==
[2018-03-12 08:47] LABS: Hemoglobin 15.6 g/dL (12.0-16.0); Mean Corpuscular HGB CONC 33.4 g/dL (32.0-36.0); Mean Corpuscular Hemoglobin 31.4 pg (27.0-31.0); Mean Corpuscular Volume 93.9 fl (81.0-99.0); Mean Platelet Volume 7.7 fL (7.4-10.4); Platelet Count 280 thou/uL (130-400); RBC Distribution Width 13.1 % (11.5-14.5); Red Blood Cell (RBC) Count 4.98 mill/uL (4.20-5.40); White Blood Cell (WBC) Count 6.3 thou/uL (4.8-10.8)
[2018-03-12 09:00] LABS: INR-International Normal Ratio 1.2; Prothrombin Time 15.8 SEC (12.0-14.7)
[2018-03-12 09:01] LABS: PTT 36.5 SEC (22.9-36.1)
[2018-03-12 09:08] LABS: Anion Gap 11 mmol/L (10-20); BUN (Urea Nitrogen) 13 mg/dL (9.8-20.1); Calc. Creatinine Clearance 0 mL/min (70-130); Carbon Dioxide 26 mmol/L (23-31); Chloride 102 mmol/L (98-107); Estimated GFR-MDRD 63; Glucose 102 mg/dL (83-110); Potassium 3.9 mmol/L (3.5-5.1); Sodium 135 mmol/L (136-145)
--- NOTE | 2018-03-16 08:46 | EKG ---
Test Reason : Blood Pressure : / mmHG Vent. Rate : 127 BPM Atrial Rate : 119 BPM P-R Int : 000 ms QRS Dur : 068 ms QT Int : 328 ms P-R-T Axes : 000 049 160 degrees QTc Int : 476 ms Atrial fibrillation with rapid ventricular response Abnormal ECG Confirmed by KENN OBRIEN MD ([id number]) on 03/16/2018 8:46:02 AM Referred By: ARYA Confirmed By:KENN OBRIEN MD
== END 2018-03-12 08:26 | disposition home or self-care (01) ==
LOC: LABBT 08:25
PROVIDERS: ATTEND Internal Medicine Cardiovascular Disease
DX: Z01.818 Encounter for other preprocedural examination (principal); Z51.81 Encounter for therapeutic drug level monitoring; I51.9 Heart disease, unspecified; I48.91 Unspecified atrial fibrillation; Z79.01 Long term (current) use of anticoagulants
CPT/HCPCS: 80048; 85027; 85610; 85730; 93005; 93010

== ENCOUNTER 2018-03-13 10:27 | Day surgery (SDC) | payer MEDICARE, OTHER ==
[2018-03-12 08:49] VITALS: BMI 23.5
[2018-03-13] MEDS ORDERED: Phenylephrine HCL 10 MG/ML VIAL ONE (11:07)
[2018-03-13] MEDS ORDERED: Lidocaine 1% (PF) 30 ML VIAL ONE (14:11)
[2018-03-13] MEDS ORDERED: Fentanyl 250 MCG/5 ML VIAL ONE (14:19)
[2018-03-13] MEDS ORDERED: Heparin 10,000 UNITS/1 ML VIAL ONE (14:19)
[2018-03-13] MEDS ORDERED: Isoproterenol 0.2 MG/1 ML AMP ONE (15:42)
[2018-03-13] MEDS ORDERED: CEFAZOLIN/Water 2 GM/20 ML SYRINGE ONE (16:11)
[2018-03-13] MEDS ORDERED: Ondansetron HCl/PF 4 MG/2 ML Vial ONE (16:29)
[2018-03-13] MEDS ORDERED: PHENYLEPHRINE-NS 100 MCG/ML 10 ML SYRINGE ONE (16:29)
[2018-03-13] MEDS ORDERED: Heparin 30,000 units/30 ml VIAL ONE (16:29)
[2018-03-13] MEDS ORDERED: Lidocaine 1% PF 5 ML VIAL ONE (16:29)
[2018-03-13] MEDS ORDERED: PROPOFOL 200 MG/20 ML VIAL ONE (16:29)
[2018-03-13] MEDS ORDERED: Dexamethasone 20 MG/5 ML VIAL ONE (16:29)
[2018-03-13] MEDS ORDERED: Glycopyrrolate 0.2 MG/ML 5 ML SYRINGE ONE (16:29)
[2018-03-13] MEDS ORDERED: Succinylcholine Chloride 20 MG/ML 10 ml SYRINGE FS ONE (16:29)
[2018-03-13] MEDS ORDERED: Protamine Sulfate 50 MG/5 ML VIAL ONE (16:52)
[2018-03-13] MEDS ORDERED: Promethazine HCl 25 MG/ML VIAL ONE (17:25)
[2018-03-13] MEDS ORDERED: Fentanyl 100 MCG/2 ML VIAL ONE (17:40)
[2018-03-13] MEDS ORDERED: Ondansetron HCl/PF 4 MG/2 ML Vial IVP PRN ×2 (18:02→18:19)
[2018-03-13] MEDS ORDERED: diphenhydrAMINE 25 MG CAP PO PRN (18:02)
[2018-03-13] MEDS ORDERED: Bisacodyl 10 MG SUPP PR PRN (18:02)
[2018-03-13] MEDS ORDERED: traMADol HCl 50 MG TAB PO PRN (18:02)
[2018-03-13] MEDS ORDERED: Bisacodyl 5 MG TAB PO PRN (18:02)
[2018-03-13] MEDS ORDERED: Nitroglycerin 0.4 MG TAB (25 Tab Bottle) SL PRN (18:02)
[2018-03-13] MEDS ORDERED: Silver Sulfadiazine 1% Cream 50 GM JAR TOP PRN (18:02)
[2018-03-13] MEDS ORDERED: Mag-Al 1200 mg/1200 mg/30 ML UDCUP PO PRN (18:02)
[2018-03-13] MEDS ORDERED: Temazepam 15 MG CAP PO PRN (18:02)
[2018-03-13] MEDS ORDERED: Promethazine HCl 25 MG/ML VIAL IM/IV PRN (18:19)
[2018-03-13] MEDS: Mometasone/Formoterol 120 PUFF INHALER INH SCH (20:04)
[2018-03-13] MEDS: Acetaminophen 325 MG TAB PO PRN (20:22)
[2018-03-13] MEDS: Apixaban 5 MG TAB PO SCH (21:42)
--- NOTE | 2018-03-14 00:03 | OP ---
DATE OF PROCEDURE: 03/13/2018 PROCEDURES: 1. Comprehensive EP testing with 3D mapping ablation of atrial fibrillation. 2. Transseptal catheterization x2. 3. Intracardiac echocardiography. CLINICAL INDICATION: Atrial fibrillation, persistent despite antiarrhythmic suppression. INDUSTRIAL GAS SERVICER SUPERVISOR: Devin Mckay M.D. ASA CLASSIFICATION: 3. ANESTHESIA: General endotracheal anesthesia per Anesthesiology. ADDITIONAL CARDIAC MEDICATIONS: Isoproterenol 10 mcg per minute infusion. Total heparin given 21,00 0 units. Total protamine given 40 mg. ACUTE COMPLICATIONS: None apparent. METHODS: After informed consent was obtained, the patient was taken to the EP lab in fasting state. Both groins were prepped and draped Using ultrasound guidance, the right and left femoral veins were accessed and wires were inserted into the central venous system. The wire was used to place an 11 F rench and 8 Bulgarian sheath in the left groin, two 8-Bulgarian sheaths in the right groin. All 8-Bulgarian s heaths were then replaced by long sheaths for catheter stability. A 10-Bulgarian ice catheter placed in the left groin advanced into the right atrium and the right ventricle for imaging. A 20-pole cathet er was placed in left groin advanced into the coronary sinus. A circular ablation catheter placed in the right femoral vein advanced up to the right atrium. A 3D map was obtained to the right atrium a nd the coronary sinus. The patient underwent anticoagulation with heparin and transseptal catheteriz ation was performed. A 3D map was obtained to the left atrium. A temperature probe was placed in th e esophagus. This was used to monitor temperatures during RF ablation. Ablation was delivered compl etely isolating all four pulmonary veins and left atrium and the roof of left atrium and the coronary sinus. Delaying of conduction was seen in the appendage, but this was not completely isolated. Abl ation from within the coronary sinus was delivered as well as the CTI line. The patient underwent ca rdioversion and remained in sinus rhythm. Re-isolation of the posterior wall was performed at the en d of the procedure. At the conclusion, catheters were withdrawn. Sheaths were pulled. Hemostasis w as achieved with collagen closure. RESULTS: 1. Baseline intervals, HV interval 43 milliseconds. 2. Atrial function. The patient was in coarse atrial fibrillation. Ablation was delivered complete ly isolating all four pulmonary veins and the posterior wall of the left atrium as well as the hubbard ry sinus and the roof the left atrium. A CTI line was also delivered. 3. Ablation details a total of 48 minutes 25 seconds of RF were delivered with 0 fluoro. IMPRESSION: Successful extensive ablation of atrial fibrillation, isolating pulmonary veins and the posterior wall and the coronary sinus, left atrium. RECOMMENDATION: Oral anticoagulation for 3 months.
[2018-03-14] MEDS: Acetaminophen 325 MG TAB PO PRN ×2 (03:26→07:35)
[2018-03-14] MEDS ORDERED: Furosemide 40 MG/4 ML VIAL ONE (05:06)
[2018-03-14] MEDS ORDERED: Levothyroxine Sodium 50 MCG TAB PO SCH (06:00)
[2018-03-14] MEDS: Mometasone/Formoterol 120 PUFF INHALER INH SCH (07:10)
[2018-03-14] MEDS: Apixaban 5 MG TAB PO SCH (07:26)
[2018-03-14] MEDS ORDERED: Verapamil SR 120 MG TAB PO SCH (09:00)
[2018-03-14] MEDS ORDERED: Furosemide 20 MG TAB PO SCH (09:00)
[2018-03-14] MEDS ORDERED: Senokot S 8.6-50 MG TAB PO SCH (09:00)
[2018-03-14] MEDS ORDERED: Aspirin 81 mg Enteric Coated Tablet PO SCH (09:00)
[2018-03-14 11:39] VITALS: BP 122/59; TEMP 98.3
--- NOTE | 2018-03-14 20:34 | DIS ---
This is Adry Santana SOFTWARE TECHNICAL LEAD-C dictating for Luis Jaeger M.D. DATE OF ADMISSION: 03/13/2018 DATE OF DISCHARGE: 03/14/2018 ATTENDING PHYSICIAN: Dr. Luis Jaeger. OPERATING PHYSICIAN: Dr. Devin Mckay. CONDITION ON DISCHARGE: Stable. FINAL DIAGNOSIS: Persistent atrial fibrillation with failed cardioversion. PROCEDURES: Comprehensive EP testing with 3D mapping as well as ablation of atrial fibrillation. HISTORY OF PRESENT ILLNESS: Ms. Rojas is a very pleasant 72-year-old woman with a prior history of chronic obstructive pulmonary disease, smoking, who also has history of colon cancer that seems to be in remission. She was diagnosed with atrial fibrillation in November after recovering from an episod e of pneumonia. She underwent cardioversion, which initially did restore sinus rhythm; however, conv erted back into atrial fibrillation in the next day. Since that time, her rate had been very difficu lt to achieve and she was extremely symptomatic with fatigue and moderately severe dyspnea. She unde rwent PVI with Dr. Devin Mckay on 03/13/2018. She presented to the case in [facility] atrial fibrillat ion. All 4 pulmonary veins were completely isolated in addition to the posterior wall of the left at rium and the coronary sinus. The roof to the left atrium was also ablated for returning to the right atrium, at which point a CTI line was also delivered. She had a total of 48 minutes and 25 seconds of RF energy lesions delivered. She did undergo successful extensive ablation of her atrial fibrilla tion and has maintained sinus rhythm overnight. Her recovery has been uneventful. She is ambulating normally as well as tolerating p.o. intake and voiding normally. Her groin sites are stable without hematoma and vital signs are stable. She is to continue her oral anticoagulation for at least 3 mon ths post-ablation without interruption. Most recent set of vitals: Temperature 98.3, pulse 73, respirations 18, 94% on room air, and blood p ressure 122/59. DISCHARGE MEDICATIONS: Eliquis 5 mg b.i.d., aspirin 81 mg daily, Lasix 40 mg daily x3 days then to r esume her normal dose of 20 mg daily, levothyroxine 50 mcg daily, Dulera inhaler 2 puffs b.i.d., nitr o sublingual as needed, Protonix 40 mg daily for 1 month, potassium chloride 20 mEq daily x3 days, th en as needed only if taking Lasix, Carafate 1 gram q.i.d. x2 weeks., verapamil SR 120 mg daily, and d igoxin 0.125 mg p.o. daily. DISCHARGE INSTRUCTIONS: No soaking baths or lifting greater than 25 pounds for 1 week. We recommend heart-healthy diet. She is to follow up in clinic in 4-6 weeks or sooner if needed. She will be wagner britton an event monitor to use weekly and patient has been given instructions on this. She was provide d a work excuse note for the next week and is okay to return to work on 03/24/2018 without restrictio ns.
--- NOTE | 2018-03-16 08:50 | EKG ---
Test Reason : Blood Pressure : / mmHG Vent. Rate : 076 BPM Atrial Rate : 076 BPM P-R Int : 182 ms QRS Dur : 076 ms QT Int : 394 ms P-R-T Axes : 095 036 103 degrees QTc Int : 443 ms Normal sinus rhythm Nonspecific ST and T wave abnormality Abnormal ECG Confirmed by MICAH ALVAREZ, KENN ([id number]) on 03/16/2018 8:50:14 AM Referred By: ARYA Confirmed By:KENN OBRIEN MD
== END 2018-03-14 15:10 | disposition home or self-care (01) ==
LOC: CCL 10:27 → 2SW 13:50 → CCL 03-14 15:10
PROVIDERS: ATTEND Internal Medicine Cardiovascular Disease
PROC: 02583ZZ Destruction of Conduction Mechanism, Percutaneous Approach (ICD-10-PCS; principal; 2018-03-13)
PROC: B245ZZZ Ultrasonography of Left Heart (ICD-10-PCS; 2018-03-13)
PROC: 02K83ZZ Map Conduction Mechanism, Percutaneous Approach (ICD-10-PCS; 2018-03-13)
DX: I48.1 Persistent atrial fibrillation (principal); J44.9 Chronic obstructive pulmonary disease, unspecified; Z87.891 Personal history of nicotine dependence; Z79.01 Long term (current) use of anticoagulants; Z79.51 Long term (current) use of inhaled steroids; Z79.82 Long term (current) use of aspirin; Z79.899 Other long term (current) drug therapy; Z88.5 Allergy status to narcotic agent; Z98.890 Other specified postprocedural states
CPT/HCPCS: 76942; 85347 ×2; 93005; 93613; 93623; 93655; 93656; 93662; 94640 ×2; 96374 ×2; C1731; C1732 ×3; C1759; C1769; 93010; A4216; J1100; J1644; J1940; J2001; J2370; J2405; J2550; J2704; J2720; J3010

== ENCOUNTER 2018-04-24 15:03 | Outpatient (CLI) | payer MEDICARE, OTHER ==
[2018-04-24 15:41] LABS: Hemoglobin 13.3 g/dL (12.0-16.0); Mean Corpuscular HGB CONC 33.5 g/dL (32.0-36.0); Mean Corpuscular Hemoglobin 31.3 pg (27.0-31.0); Mean Corpuscular Volume 93.4 fl (81.0-99.0); Platelet Count 242 thou/uL (130-400); RBC Distribution Width 14.1 % (11.5-14.5); Red Blood Cell (RBC) Count 4.23 mill/uL (4.20-5.40); White Blood Cell (WBC) Count 6.3 thou/uL (4.8-10.8)
[2018-04-24 15:49] LABS: INR-International Normal Ratio 1.2; PTT 33.3 SEC (22.9-36.1); Prothrombin Time 15.1 SEC (12.0-14.7)
[2018-04-24 16:05] LABS: Anion Gap 13 mmol/L (10-20); BUN (Urea Nitrogen) 9 mg/dL (9.8-20.1); Calc. Creatinine Clearance 0 mL/min (70-130); Calcium 9.4 mg/dL (7.8-10.44); Carbon Dioxide 24 mmol/L (23-31); Chloride 105 mmol/L (98-107); Estimated GFR-MDRD 59; Glucose 101 mg/dL (83-110); Potassium 3.7 mmol/L (3.5-5.1); Sodium 138 mmol/L (136-145)
== END 2018-04-24 15:04 | disposition home or self-care (01) ==
LOC: LABBT 15:03
PROVIDERS: ATTEND Internal Medicine Cardiovascular Disease
DX: Z01.818 Encounter for other preprocedural examination (principal); I48.91 Unspecified atrial fibrillation
CPT/HCPCS: 80048; 85027; 85610; 85730

== ENCOUNTER → 2018-04-25 | Day surgery (SDC) | payer MEDICARE, OTHER ==
[2018-04-24 15:18] VITALS: BMI 21.2
[~2018-04-25] MED LIST: PROPOFOL 200 MG/20 ML VIAL ONE
--- NOTE | 2018-04-25 12:09 | OP ---
DATE OF PROCEDURE: 04/25/2018 INDICATION FOR PROCEDURE: Recurrent and persisting atrial fibrillation. INSURANCE VERIFICATION REPRESENTATIVE: Bubba Sanchez M.D. MEDICATIONS: As per Anesthesia. COMPLICATIONS: None. ESTIMATED BLOOD LOSS: None. PROCEDURE PERFORMED: Discontinue cardioversion. METHODS: After informed consent was obtained, it was confirmed that the patient had been on her Eliq uis. Anterior, posterior pads were placed. The patient was sedated and a single 200 joule synchroni zed cardioversion performed restoring her back to sinus mechanism. IMPRESSION: Successful cardioversion to restore sinus mechanism. RECOMMENDATIONS: Discharge home. Follow up in 6 weeks in clinic.
--- NOTE | 2018-04-25 12:20 | DIS ---
DATE OF ADMISSION: 04/25/2018 DATE OF DISCHARGE: 04/25/2018 HOSPITAL COURSE: Ms. Rojas is a lady who underwent a catheter ablation just over 6 weeks ago. She has recurrent atrial arrhythmia and comes in for cardioversion. She has been on oral anticoagulation with Eliquis. HOSPITAL COURSE: Anterior, posterior pads were placed. The patient was cardioverted back to sinus m echani with a single 200 joule shock. She is now ready for discharge. She will be discharged on h er home medications that included apixaban, aspirin, digoxin, Advair Diskus, Lasix, levothyroxine, an d verapamil. She will have to followup visit in 6 weeks. PRINCIPAL DIAGNOSIS: Atrial fibrillation. PRINCIPAL PROCEDURE: Discontinue cardioversion.
== END ==
LOC: CCL 09:15
PROVIDERS: ATTEND Internal Medicine Cardiovascular Disease
PROC: 5A2204Z Restoration of Cardiac Rhythm, Single (ICD-10-PCS; principal; 2018-04-25)
DX: I48.1 Persistent atrial fibrillation (principal); Z88.5 Allergy status to narcotic agent; Z79.82 Long term (current) use of aspirin; Z79.899 Other long term (current) drug therapy; Z98.890 Other specified postprocedural states
CPT/HCPCS: 92960

== ENCOUNTER 2018-05-20 13:13 | Inpatient (IN) | payer MEDICARE, OTHER ==
[2018-05-20] MEDS ORDERED: Azithromycin 500 MG VIAL ONE (14:55)
[2018-05-20] MEDS ORDERED: Acetaminophen 500 MG TAB ONE (14:55)
[2018-05-20] MEDS ORDERED: cefTRIAXone\\ROCEPHIN 1 GM VIAL ONE (14:55)
[2018-05-20 15:34] LABS: Bilirubin Negative (Negative); Blood, Urine Negative (Negative); Clarity CLEAR (Clear); Glucose, Urine (Dipstick) Negative (Negative); Leukocyte Negative (Negative); Nitrite Negative (Negative); Protein, Urine (Dipstick) Negative (Neg-Trace); Specific Gravity, Urine 1.011 (1.002-1.036); pH, Urine 6.5 (5.0-9.0)
[2018-05-20 15:43] LABS: CKMB 1.2 ng/mL (0-6.6)
[2018-05-20 16:06] LABS: Troponin I 0.032 ng/mL (< 0.028)
[2018-05-20 16:15] LABS: #Lymphocytes 0.7 thou/uL (1.20-3.40); #Monocytes 0.6 thou/uL (0.11-0.59); %Basophils 0.2 % (0.0-1.0); %Eosinophils 0.1 % (0.0-10.0); %Lymphocytes 9.5 % (21.0-51.0); %Neutrophils 82.2 % (42.0-75.0); Hemoglobin 12.5 g/dL (12.0-16.0); Mean Corpuscular HGB CONC 33.8 g/dL (32.0-36.0); Mean Corpuscular Hemoglobin 31.7 pg (27.0-31.0); Mean Corpuscular Volume 93.8 fL (78.0-98.0); Mean Platelet Volume 7.6 fL (7.4-10.4); Platelet Count 206 thou/uL (130-400); RBC Distribution Width 13.8 % (11.5-14.5); Red Blood Cell (RBC) Count 3.93 mill/uL (4.20-5.40); White Blood Cell (WBC) Count 7.2 thou/uL (4.8-10.8)
[2018-05-20 16:37] LABS: ALT (SGPT) 10 U/L (8-55); AST (SGOT) 17 U/L (5-34); Albumin 3.8 g/dL (3.4-4.8); Alkaline Phosphatase 73 U/L (40-150); Anion Gap 13 mmol/L (10-20); BUN (Urea Nitrogen) 9 mg/dL (9.8-20.1); Bilirubin, Total 0.9 mg/dL (0.2-1.2); Calc. Creatinine Clearance 0 mL/min (70-130); Calcium 8.7 mg/dL (7.8-10.44); Carbon Dioxide 26 mmol/L (23-31); Chloride 100 mmol/L (98-107); Estimated GFR-MDRD 77; Globulin 2.6 g/dL (2.4-3.5); Glucose 99 mg/dL (83-110); Protein, Total 6.4 g/dL (6.0-8.3); Sodium 135 mmol/L (136-145)
[2018-05-20] MEDS ORDERED: Senokot 8.6 MG TAB PO PRN (17:55)
[2018-05-20] MEDS ORDERED: Ondansetron ODT 4 MG TAB PO PRN (17:55)
[2018-05-20] MEDS ORDERED: Bisacodyl 5 MG TAB PO PRN (17:55)
[2018-05-20] MEDS ORDERED: Acetaminophen 650 MG Suppository PR PRN (17:55)
[2018-05-20] MEDS ORDERED: Ondansetron HCl/PF 4 MG/2 ML Vial IVP PRN (17:55)
[2018-05-20 18:36] LABS: Troponin I 0.044 ng/mL (< 0.028)
[2018-05-20] MEDS ORDERED: Zolpidem Tartrate 5 MG TAB PO PRN (18:55)
[2018-05-20] MEDS: Mometasone/Formoterol 120 PUFF INHALER INH SCH (19:03)
[2018-05-20] MEDS ORDERED: Azithromycin 500 MG in Sodium Chloride 0.9% 250 ML 250 ML IVPB SCH (20:00)
[2018-05-20] MEDS: Docusate 100 MG CAP PO SCH (20:29)
[2018-05-20] MEDS: Apixaban 5 MG TAB PO SCH (20:30)
[2018-05-20] MEDS: Flecainide 50 MG TAB PO SCH (20:30)
[2018-05-20 21:21] LABS: Troponin I 0.034 ng/mL (< 0.028)
[2018-05-20] MEDS ORDERED: Sodium Chloride 0.9% 10 ML ONE (23:01)
[2018-05-20] MEDS ORDERED: Benzonatate 100 MG CAP PO SCH (23:30)
--- NOTE | 2018-05-21 01:12 | HP ---
PRIMARY CARE PHYSICIAN: Kayce alexander. CHIEF COMPLAINT: Cough and shortness of breath. HISTORY OF PRESENT ILLNESS: This is a 72-year-old white female with a known history of COPD, also wi th her atrial fibrillation over the last 6 months that she has had multiple synchronized cardioversio ns and ablation, which were unsuccessful for. She was treated for a bad urinary tract infection abou t a month ago. The patient reports that, over the last 2 days, she has had increasing cough, product chani of first clear, then followed by yellow and brown sputum, increasing shortness of breath, wheezin g, and a temperature to 99.9. She also has had worsening dysuria, but improved with some Azo at home . The patient went into [facility] and was evaluated. A chest x-ray showed some COPD changes along with some bibasilar atelectasis versus early pneumonia. She was given 2 grams of ceft riaxone and transferred over here. She also had some nitrites and leukoesterase on her urinalysis th at she had no microscopy done. Uncertain if a culture was done and she was on Azo at that time. PAST MEDICAL HISTORY: 1. Paroxysmal atrial fibrillation. 2. Stage 4 colon cancer, currently in remission. 3. Chronic obstructive pulmonary disease. 4. Hypertension. 5. Hypothyroidism. PAST SURGICAL HISTORY: 1. Partial colectomy in 2011. 2. Cataract 10 years ago. 3. Partial hysterectomy followed by ovarian removal later. 4. Cardiac ablation and multiple synchronized cardioversions. SOCIAL HISTORY: The patient reports that she used to smoke, but quit about 8 years ago. No alcohol or illicit drugs. She is . Her is present in the room with her. FAMILY HISTORY: Positive for 3 sisters with atrial fibrillation and her father with congestive heart failure. ALLERGIES: No known drug allergies. CURRENT MEDICATIONS: 1. Verapamil extended release 120 mg daily. 2. Levothyroxine 50 mcg daily. 3. Furosemide 20 mg daily. 4. Aspirin 81 mg daily. 5. Sennosides/docusate 1 daily. 6. Eliquis 5 mg twice a day. 7. Digoxin 125 mcg daily. 8. Advair 250/50 mcg 1 puff twice a day, although she did not fill this last time due to expense. 9. Flecainide 50 mg 2 times a day. REVIEW OF SYSTEMS: Constitutional: No fevers. She has had some chills. Eyes: No double vision or blurred vision. ENT: She has had some congestion and runny nose. No sore throat. Pulmonary: See HPI. Cardiovascular: She has had some burning chest pain with cough only. No cardiac-type chest p ain. No current palpitations or racing heart. Gastrointestinal: No abdominal pain, rare nausea wit h cough only. No vomiting, no diarrhea. She is constipated and has not had a bowel movement for a c ouple of days. Genitourinary: See HPI. No hematuria. Musculoskeletal: No muscle aches or joint p ains. Skin: No rashes or lesions. Neurologic: No numbness, tingling, or focal weakness. PHYSICAL EXAMINATION: VITAL SIGNS: Blood pressure 169/72, pulse 80, respirations 17, temperature 99.1, O2 sat 95% on 2 lit ers. GENERAL: This is a well-developed, well-nourished, white female, in no acute distress. HEENT EXAM: Pupils equal, round, and reactive to light. Oropharynx clear without lesions, erythema, or exudate. NECK: Supple, no lymphadenopathy, no thyroid nodules or enlargement. HEART: Irregularly irregular rhythm with a controlled rate. No murmurs, rubs, or gallops. LUNGS: She has some bibasilar dry sounding crackles and scattered wheezes and a mildly increased wor k of breathing with intermittent coughing. ABDOMEN: Soft, nontender to palpation, normoactive bowel sounds, no hepatosplenomegaly or other mass es. EXTREMITIES: No clubbing, cyanosis, or edema. SKIN: No rashes or lesions noted. NEUROLOGIC: She has intact strength and reflexes in all extremities, and no facial droop. LABORATORY DATA: I did review the lab done at the outside emergency room. The patient's CBC shows a normal white blood cell count. No significant anemia. Her creatinine was normal. Her cardiac jenni er set was negative x1 there. Her urinalysis did show some nitrites and trace leukocyte esterase on the dipstick. Her brain natriuretic peptide was in the 600s, and her chest x-ray of the brain by rep ort had some bibasilar interstitial sort of infiltrates. Lab done here CBC shows within normal limit s. Complete metabolic panel was grossly unremarkable. Troponin did come up to 0.032 on the 2nd chec k here. Brain natriuretic peptide was upward, but also was 700. Urinalysis here was negative for an y evidence of infection. EKG done at the outside hospital did show some mildly depressed ST segments and T-wave inversions thr oughout the precordial leads. This was unchanged on our EKG here. She is in atrial fibrillation, bu t with rate controlled ASSESSMENT: 1. Chronic obstructive pulmonary disease exacerbation with likely pneumonia. We will continue Rocep hin and add azithromycin for better coverage. We will continue DuoNeb scheduled every 6 hours and as needed as well. We will give her oxygen. We will start steroids 40 mg IV q.8 hours. 2. Possible urinary tract infection. She has had some dysuria and a history of previous urinary tra ct infection, though her urine does not look like that here. Well the Rocephin should cover her any bacterial pathogens in her urine. If she has continued symptoms, we can repeat a culture and see if she has any resistant bacteria. 3. History of congestive heart failure. Her BNP is elevated, though it is less than at her last adm ission was, where it was thousand. We will have Cardiology come in and evaluate her and see if she n eeds any adjustment to her medications. 4. Atrial fibrillation, currently with a controlled rate. We will continue patient's flecainide and other medications and consult Cardiology. 5. Gastrointestinal prophylaxis. Put the patient on Pepcid twice a day. 6. Constipation. We will continue patient's medication and add some senna as well. 7. Code Status: I did discuss with the patient, she stated she would not want to be resuscitated sh ould her heart stop. She was okay with a temporary ventilator use if she was having a lot of struggl ing to breathe with her chronic obstructive pulmonary disease, but would not want to be on it permane ntly. Her medical decision maker is her should she be incapacitated, his name is Rigoberto Rojas .
[2018-05-21] MEDS ORDERED: Sodium Chloride 0.9% 10 ML ONE (02:34)
[2018-05-21] MEDS: cefTRIAXone\\ROCEPHIN 2 GM in Sodium Chloride 0.9% 100 ML IVPB SCH (02:39)
[2018-05-21] MEDS ORDERED: cefTRIAXone\\ROCEPHIN 1 GM in Sodium Chloride 0.9% 100 ML IVPB SCH (03:00)
[2018-05-21] MEDS ORDERED: Diltiazem HCl 125 MG, Admixture Fee 1 EACH in Sodium Chloride 0.9% 100 ML IVPB SCH (03:30)
[2018-05-21] MEDS: Levothyroxine Sodium 50 MCG TAB PO SCH (05:26)
[2018-05-21 05:37] LABS: Anion Gap 14 mmol/L (10-20); BUN (Urea Nitrogen) 10 mg/dL (9.8-20.1); Calc. Creatinine Clearance 66 mL/min (70-130); Calcium 9.3 mg/dL (7.8-10.44); Carbon Dioxide 24 mmol/L (23-31); Chloride 101 mmol/L (98-107); Estimated GFR-MDRD 78; Glucose 140 mg/dL (83-110); Potassium 3.9 mmol/L (3.5-5.1); Sodium 135 mmol/L (136-145)
[2018-05-21 05:41] LABS: #Lymphocytes 0.5 thou/uL (1.20-3.40); #Monocytes 0.1 thou/uL (0.11-0.59); #Neutrophils 3.8 thou/uL (1.40-6.50); %Eosinophils 0.1 % (0.0-10.0); %Lymphocytes 11.4 % (21.0-51.0); %Monocytes 1.9 % (0.0-10.0); %Neutrophils 86.6 % (42.0-75.0); Hemoglobin 12.8 g/dL (12.0-16.0); Mean Corpuscular HGB CONC 31.7 g/dL (32.0-36.0); Mean Corpuscular Hemoglobin 30.4 pg (27.0-31.0); Mean Corpuscular Volume 95.9 fL (78.0-98.0); Mean Platelet Volume 8.7 fL (7.4-10.4); Platelet Count 211 thou/uL (130-400); RBC Distribution Width 13.8 % (11.5-14.5); Red Blood Cell (RBC) Count 4.22 mill/uL (4.20-5.40); White Blood Cell (WBC) Count 4.4 thou/uL (4.8-10.8)
[2018-05-21] MEDS: Mometasone/Formoterol 120 PUFF INHALER INH SCH ×2 (06:09→18:53)
[2018-05-21] MEDS: Flecainide 50 MG TAB PO SCH ×2 (06:38→21:50)
[2018-05-21] MEDS: Aspirin 81 mg Enteric Coated Tablet PO SCH (06:38)
[2018-05-21] MEDS: Senokot S 8.6-50 MG TAB PO SCH ×2 (06:38→08:45)
[2018-05-21] MEDS: Docusate 100 MG CAP PO SCH ×2 (06:39→21:49)
[2018-05-21] MEDS: Apixaban 5 MG TAB PO SCH ×2 (06:39→21:49)
[2018-05-21 07:57] VITALS: BMI 20.2
[2018-05-21] MEDS: Benzonatate 100 MG CAP PO SCH ×3 (08:45→21:49)
[2018-05-21] MEDS: Acetaminophen 325 MG TAB PO PRN ×2 (08:46→15:50)
[2018-05-21] MEDS: Furosemide 20 MG TAB PO SCH (08:47)
[2018-05-21] MEDS ORDERED: Digoxin 0.125 MG TAB PO SCH (09:00)
[2018-05-21] MEDS ORDERED: Verapamil SR 120 MG TAB PO SCH (09:00)
--- NOTE | 2018-05-21 10:54 | PDOC.PN ---
- Subjective Encounter Start Date: 05/21/18 Encounter Start Time: 12:10 Subjective: Patient feeling ok. Still with some palpitations this AM. Went into RVR -: last night, resolved with diltiazem with bradycardia, off diltiazem went -: back into Afib with RVR. - Objective Resuscitation Status: Resuscitation Status DNR:Do Not Resuscitate MAR Reviewed: Yes Vital Signs & Weight: Vital Signs (12 hours) Temp Pulse Resp BP BP Pulse Ox 05/21/18 08:00 97.2 F L 121 H 18 94 L 05/21/18 06:40 118 H 05/21/18 06:09 104 H 18 98 05/21/18 06:07 104 H 18 98 05/21/18 05:20 79 20 116/58 L 05/21/18 03:29 116 H 20 114/60 94 L 05/21/18 02:20 99.1 F 130 H 20 145/98 H 92 L 05/21/18 00:27 82 20 94 L 05/21/18 00:04 99 F 91 20 135/65 92 L Weight Admit Weight 135 lb 3.2 oz Weight 133 lb 9.6 oz I&O: 05/20/18 05/21/18 05/22/18 06:59 06:59 06:59 Intake Total 900 240 Output Total 700 Balance 200 240 Result Diagrams: 05/21/18 04:23 05/21/18 04:23 Phys Exam - Physical Examination Constitutional: NAD HEENT: moist MMs Respiratory: no wheezing, no rales, no rhonchi Cardiovascular: no significant murmur, irregular Gastrointestinal: soft, non-tender, positive bowel sounds Neurological: non-focal, moves all 4 limbs Psychiatric: normal affect, A&O x 3 Dx/Plan (1) PNA (pneumonia) Code(s): J18.9 - PNEUMONIA, UNSPECIFIED ORGANISM Status: Acute (2) COPD exacerbation Code(s): J44.1 - CHRONIC OBSTRUCTIVE PULMONARY DISEASE W (ACUTE) EXACERBATION Status: Acute (3) Dysuria Code(s): R30.0 - DYSURIA Status: Acute Comment: neg UA, culture NGTD (4) Atrial fibrillation with rapid ventricular response Code(s): I48.91 - UNSPECIFIED ATRIAL FIBRILLATION Status: Acute Comment: paroxysmal Afib with RVR overnight, converted with diltiazem but back in afib after stopping drip, cardiology consulted, on Elliquis (5) Diastolic CHF Code(s): I50.30 - UNSPECIFIED DIASTOLIC (CONGESTIVE) HEART FAILURE Status: Chronic Qualifiers: Heart failure chronicity: chronic Qualified Code(s): I50.32 - Chronic diastolic (congestive) heart failure Comment: BNP 700, was 1000 earlier in the year - Plan cont current plan of care, continue antibiotics, PT/OT will d/c azithromycin due to Flecanide and start doxy, tomorrow can -: increase Flecanide to 100mg BID. * . - Discharge Day Encounter end time: 12:30
--- NOTE | 2018-05-21 13:21 | CON ---
DATE OF CONSULTATION: 05/21/2018 INDICATION FOR CONSULTATION: A 72-year-old female with intermittent atrial fibrillation. HISTORY OF PRESENT ILLNESS: This is a very pleasant 72-year-old female with a known history of under lying intermittent coronary artery disease, has undergone ablation in the past. She has also had a r ecent cardioversion. She was cardioverted about 2-1/2 weeks ago and about a week later she converted back to atrial fibrillation. She has been started on flecainide as of I believe this past Saturday. She was to take 50 mg tablet half tablet b.i.d. and after about 1 week was to be increased up to 100 b.i.d. She actually started on Saturday I believe on the medication. She felt like on Saturday that per she converted back to sinus rhythm, but then on Saturday, she felt quite well. Then, on Saturday ni ght she started coughing and had significant coughing which was productive and also recently has had a urinary tract infection for which she took medications and then she had increasing coughing on ay night and she presented to the hospital and was admitted to the hospital for further evaluation an d treatment. She was found to be in atrial fibrillation at that time with a rapid ventricular heart rate. At this time her chest x-ray shows some evidence of COPD with bilateral atelectasis versus ear ly pneumonia. She was given antibiotics and was transferred to our facility after she was originally seen in the [place] [facility]. She at this time is feeling more comfortable. She still has a slight cough. She is sitting on the side of the bed and has no significant complaints. She heike nues to be in atrial fibrillation, but the rate is under reasonable control. PAST MEDICAL HISTORY: Significant for the atrial fibrillation, ablations and cardioversions. She hebert s had stage IV colon cancer in remission. She has history of hypertension, hypothyroidism. She has a history of COPD. She has had a partial colectomy in 2011, cataract surgery. She has had a partial hysterectomy. She has had ovarian removal. She has had no other significant complaints except for frequent urinary tract infections. SOCIAL HISTORY: She smoked for about 50 years, but stopped about 8 years ago. She has no alcohol or tobacco abuse at this time. She is . Her is with her, he is very supportive. FAMILY HISTORY: She has siblings with atrial fibrillation. Father had a history of congestive heart failure. ALLERGIES: None. MEDICATIONS: Prior to admission included verapamil 120 mg daily, extended release, levothyroxine 50 mcg daily, aspirin 81 mg a day, Lasix 20 mg a day, Eliquis 5 mg b.i.d., digoxin 125 mcg daily, flecai nide 50 mg b.i.d., Advair 250/50 one puff b.i.d. She also was taking docusate 1 daily. REVIEW OF SYSTEMS: A 12 point review of systems is unremarkable, unless otherwise noted in the histo ry of present illness. HEENT: She had no new HEENT complaints. PULMONARY: She complains of coughing as noted above. CARDIOVASCULAR: She has occasional discomfort when she coughs, but does not appear to be coronary in nature. She did notice palpitations, but felt like she was better on Saturday, but then again noticed that she was back in atrial fibrillation. ABDOMEN: She had no nausea, vomiting or diarrhea. : She did have some dysuria. EXTREMITIES: She had no lower extremity edema. NEURO: She had no complaints neurologically. PHYSICAL EXAMINATION: GENERAL: Reveals an elderly female who is thin statured. She appears to be her stated age. VITAL SIGNS: Her blood pressure is 116/58, heart rate is anywhere between 100-120, respiratory rate is 18, O2 saturations 98%. She is afebrile. HEENT: Shows the head to be normocephalic and atraumatic. Carotid pulses are present. I did not he ar any significant bruits. There is no JVD noted. CHEST: Her chest actually has minimal bibasilar rales or crackles, but otherwise no significant rhon chi were noted. No wheezing was noted. HEART: Reveals an irregular regular rhythm, slightly tachycardic, but no significant murmurs, heaves , thrills, bruits or rubs are otherwise noted. ABDOMEN: Soft and nontender. Positive bowel sounds are present. EXTREMITIES: Show no clubbing, cyanosis or edema. Pedal pulses are present, somewhat decreased, but are present. NEUROLOGIC: She appears to be fully intact with normal strength and normal tone. SKIN: Warm and dry. LABORATORY DATA: WBC of 4.4. The hemoglobin 12.8, hematocrit 40.4, platelet count is 211. Her sodi um is 135, potassium 3.9, blood sugar was 140, earlier was 99, creatinine 0.73. Troponin I is 0.032, increased up to a 0.044 and then back down to 0.034. MBs are negative. Her BNP was slightly modera tely elevated at 758. She had already taken antibiotics at home, AZO I believe or she was on azathio isaura patch for the dysuria, but I did not see that there has been any bacteria in the urine at this time. There has been no culture performed, just a urinalysis which did show ketones, otherwise was u nremarkable. Her EKG shows atrial fibrillation with rapid ventricular response and at times it appea red that she was trying to convert to a sinus rhythm, but appeared to be a junctional rhythm or atria l fibrillation with bradycardia. She did have a heart rate in the 40s actually early this morning ar ound 8:30. Otherwise, she has been having atrial fibrillation with a rapid ventricular response in t he low 100s and at times up to the 120s. We will continue her medications. I will discuss with Dr. Jaeger since he has followed her in the past . Actually on admission yesterday at 1:30 in the afternoon she was in sinus rhythm as she had though t, but then converted back to atrial fibrillation earlier this morning. We will continue her medicat ions. We will increase the flecainide to 100 mg b.i.d. and perhaps she will convert back to sinus rh ythm as she did originally convert to sinus rhythm after starting on the flecainide. She is not very interested in undergoing a repeat cardioversion or ablation at this time. She has significant probl ems associated with anesthesia with these procedures and says she wants to avoid that if at all possi ble. IMPRESSION: 1. Atrial fibrillation with rapid ventricular response. We will readjust her medications. We will ask Dr. Jaeger's opinion, if there is any other medications, may need to evaluate her for next 24 hours prior to consulting him. 2. History of tobacco abuse in the past. She remains abstinent at this time and has not smoked for almost 10 years now. 3. Probable pneumonia. She is on antibiotics. We will continue those. 4. History of chronic obstructive pulmonary disease. This is being dealt with by the primary care s mar. 5. History of diastolic dysfunction. This appears to be relatively stable and is unchanged from her previous admissions. ADDENDUM: Please note that the patient did convert from atrial fibrillation earlier this morning heydi und 4:30 and remained in sinus rhythm for approximately 1 hour and then converted back to sinus rhyth m and converted back to atrial fibrillation with rapid ventricular response. She had been on IV dilt iazem during that time and then when the patient converted back to sinus rhythm, had some significant bradycardia which appear to be junctional and then persisted into the sinus rhythm. The diltiazem w as discontinued and the patient then converted back to atrial fibrillation. At this time, the heart rate is anywhere between the 1-teens to 120s and I will probably just increase the flecainide at this time. She is on azithromycin which also can prolong the QT and I believe that perhaps we should hol d this medicine, switch to a different medicine for her possible urinary tract infection or pneumonia . She has already been given Rocephin, but with the increase in the flecainide as well as being on t he digoxin, this may certainly become an issue and she could present with torsades. We will need to change this antibiotic and I will discuss this with the primary physician.
[2018-05-21] MEDS ORDERED: Doxycycline 100 MG CAP PO SCH (14:00)
[2018-05-21] MEDS: Doxycycline 100 MG CAP PO SCH (21:49)
--- NOTE | 2018-05-22 00:29 | CON ---
DATE OF CONSULTATION: 05/21/2018 ELECTROPHYSIOLOGY CONSULTATION REFERRING PHYSICIAN: Modesta Barakat M.D. REASON FOR CONSULTATION: Atrial fibrillation. HISTORY OF PRESENT ILLNESS: Ms. Rojas is a pleasant 72-year-old woman well known to our practice fo r history of atrial fibrillation. She recently underwent her first atrial fibrillation ablation with Dr. Mckay on 03/13/2018. She received a fairly extensive ablation at that time and initially with maintaining sinus rhythm without antiarrhythmic therapy, but has struggled with shortness of breath a nd fluid overload intermittently since her procedure. She also has a recurrent complicated urinary t ract infection that she has been doing that for some time this year. She developed early recurrence and was found to be in coarse atrial fibrillation and underwent cardioversion on 04/25/2018. She has been on digoxin and verapamil for rate control. She is largely asymptomatic with her arrhythmias, b ut continues to have chronic shortness of breath which may be just related to her COPD. When was see n in clinic most recently, she was also found to be in atrial fibrillation and was being loaded on fl ecainide and setup for an outpatient cardioversion. She was unable to get her flecainide until and started her first dose Saturday evening. The following day she feels she converted to sinus rhyt hm and was feeling somewhat better, but then began to cough and had concern for pneumonia and present ed to the hospital for further evaluation. At some point, she converted back into atrial fibrillatio n with RVR. Chest x-ray was performed that showed evidence of COPD with also some bilateral atelecta sis versus possible pneumonia. IV antibiotics have been started to treat possible pneumonia. She wa s transferred to [place] from the [facility]. Today, she reports that she is feeli ng somewhat better. She still has an occasional cough. She continues to be in and out of atrial fib rillation. When she converted out of atrial fibrillation at one point around 4 in the morning, she c onverted to very slow junctional rhythm in the 30-40 beat per minute range. She is on digoxin and ve rapamil for rate control, had also been given some sleep agent that night which may have exacerbated her bradycardia. She does also endorse some fever that have since subsided within the past 24 hours. REVIEW OF SYSTEMS: A 12- point review of systems was conducted and was negative except that listed a edi in the HPI. PAST MEDICAL HISTORY: 1. Persistent atrial fibrillation, status post multiple cardioversions as well as PVI on 03/13/2018 with early recurrence, and cardioversion on 04/25/2018 now with additional recurrence, and initiated on antiarrhythmic therapy. 2. COPD. 3. Preserved left ventricular ejection fraction of 50%-55% with mild left atrial enlargement, modera te mitral regurgitation, mild tricuspid regurgitation by echo on 12/18/2017. 4. Elevated CHADS VASc score of 3 on the basis of age, female gender and hypertension, currently on Eliquis without interruption. 5. Gastroesophageal reflux disease. 6. Colon cancer approximately 6 years ago, for which she underwent surgery and chemotherapy, has bee n in remission since that time. No GI bleeding issues have been seen while on anticoagulation. 7. Recurrent urinary tract infection with E. coli. ALLERGIES: CODEINE. CURRENT MEDICATIONS: Include levothyroxine 50 mcg daily, aspirin 81 mg daily, Eliquis 5 mg b.i.d., L asix 20 mg daily, verapamil 120 mg daily, digoxin 125 mcg daily, albuterol nebulizer as needed, fleca inide 50 mg b.i.d. SOCIAL HISTORY: Positive for long history of tobacco habituation, but reports stopping approximately 8 years ago, 50+ pack year history. Negative for alcohol or current tobacco habituation. She is ma rried and has multiple family members for support. FAMILY HISTORY: Positive for atrial fibrillation, positive for congestive heart failure. Negative f or coronary artery disease or sudden cardiac . PHYSICAL EXAMINATION: VITAL SIGNS: Most recently; temperature 98.8, pulse 110, respirations 16, oxygen saturation 94% on 2 L nasal cannula, blood pressure 130/69. GENERAL: This is a somewhat frail, malnourished woman who appears much older than her stated age. S he is alert and oriented. Her speech is clear. Affect is appropriate. HEENT: She is normocephalic, atraumatic. Her sclerae are anicteric. EOMs are intact. Her oral muc gold is moist and pink with adequate dentition. NECK: Supple, without jugular venous distention. Her thyroid is nonpalpable. CHEST: Her lungs are clear to auscultation bilaterally with minimal crackles noted bilaterally. Neg ative for wheezing or rhonchi. Respirations are even and unlabored with fair bilateral excursion. CARDIOVASCULAR: Heart rate is currently irregularly irregular with a variable S1. PMI is nondisplac ed. EXTREMITIES: Warm and dry to touch without clubbing, cyanosis or edema. ABDOMEN: Soft, nontender without palpable masses or hepatojugular reflux is negative. There are pos itive bowel sounds noted throughout. NEUROLOGIC: Grossly intact and nonfocal and gait was not assessed. DATABASE: All EKGs and telemetry strips were personally reviewed revealing paroxysmal atrial fibrill ation with a variable ventricular rates. Currently, she is in atrial fibrillation with ventricular r ate in the 90s. At 4:30 this morning, she converted out of atrial fibrillation into a slow junctiona l rhythm and her Cardizem drip was turned off at 5:30 that morning. She has been in and out of atria l fibrillation and occasionally in sinus rhythm since her telemetry monitoring began and since initia ting flecainide. IMPRESSION: 1. Paroxysmal/recurrent atrial arrhythmias after recent ablation. 2. Prior persistent atrial fibrillation, status post pulmonary vein antrum isolation on 03/13 with Kim Mckay requiring extensive ablation. 3. Symptomatic atrial tachycardia, now on flecainide loading dose. 4. Junctional bradycardia at night with spontaneous conversion from atrial fibrillation on verapamil and digoxin as well as IV diltiazem. 5. Pneumonia and urinary tract infection, on antibiotics. PLAN: 1. Continue flecainide at 100 mg p.o. b.i.d. 2. We will stop verapamil and digoxin to prevent any additional bradycardia post-cardioversion. 3. Continue oral anticoagulation. 4. Monitor EKG. 5. Pneumonia and urinary tract infection per hospitalist team. Overall, it seems the flecainide has been working for Ms. Rojas since initiating even at a low dose. She has been very sensitive to medications in the past, but the gentle initiation of antiarrhythmic therapy with her. It also appears that combination of oral rate control with IV diltiazem resulted in slow junctional bradycardia upon her spontaneous conversion. Hopefully, with higher dose of fleca inide and less rate control, she will be able to convert to sinus rhythm and maintained there. Thank you for allowing us to participate in the care of this patient. We will continue to follow thr ough her hospitalization. This report was dictated as scribe for Dr. Luis Jaeger.
[2018-05-22] MEDS: cefTRIAXone\\ROCEPHIN 2 GM in Sodium Chloride 0.9% 100 ML IVPB SCH (04:23)
[2018-05-22] MEDS: Acetaminophen 325 MG TAB PO PRN ×3 (04:41→20:25)
[2018-05-22] MEDS: Levothyroxine Sodium 50 MCG TAB PO SCH (05:06)
[2018-05-22 06:17] LABS: Hemoglobin 13.8 g/dL (12.0-16.0); Platelet Count 237 thou/uL (130-400)
[2018-05-22] MEDS: Mometasone/Formoterol 120 PUFF INHALER INH SCH ×2 (06:32→19:09)
[2018-05-22] MEDS ORDERED: Chloraseptic Spray 180 ml Bottle PO PRN (07:01)
[2018-05-22] MEDS ORDERED: Metoclopramide HCl 10 MG TAB PO PRN (07:01)
[2018-05-22] MEDS ORDERED: Metoclopramide HCl 10 MG/2 ML VIAL IVP PRN (07:01)
[2018-05-22] MEDS ORDERED: hydrALAZINE 20 MG/ML VIAL SLOW IVP PRN (07:01)
[2018-05-22] MEDS ORDERED: Artificial Tears 18 DROP/0.9 ML EA EYE PRN (07:01)
[2018-05-22] MEDS ORDERED: Mag-Al 1200 mg/1200 mg/30 ML UDCUP PO PRN (07:01)
[2018-05-22] MEDS ORDERED: Eucerin (Mineral Oil/Petrolatum,White) 30 gm Jar TOP PRN (07:01)
[2018-05-22] MEDS ORDERED: Sodium Chloride 0.65% Nasal 44 ML BOT EA NARE PRN (07:01)
[2018-05-22] MEDS ORDERED: Flecainide 50 MG TAB PO SCH (09:00)
[2018-05-22] MEDS: Aspirin 81 mg Enteric Coated Tablet PO SCH (10:00)
[2018-05-22] MEDS: Doxycycline 100 MG CAP PO SCH ×2 (10:00→21:38)
[2018-05-22] MEDS: Furosemide 20 MG TAB PO SCH (10:00)
[2018-05-22] MEDS: Docusate 100 MG CAP PO SCH ×2 (10:00→21:38)
[2018-05-22] MEDS: Famotidine 20 MG TAB PO SCH ×2 (10:00→21:38)
[2018-05-22] MEDS: Flecainide 50 MG TAB PO SCH ×2 (10:00→21:39)
[2018-05-22] MEDS: Senokot S 8.6-50 MG TAB PO SCH (10:01)
--- NOTE | 2018-05-22 10:15 | PDOC.PN ---
- Subjective Encounter Start Date: 05/22/18 Encounter Start Time: 07:50 -: old records requested/rev Patient seen and examined. No new complaints. No overnight events she is feeling better, less dyspnea, no fever - Objective Resuscitation Status: Resuscitation Status DNR:Do Not Resuscitate MAR Reviewed: Yes Vital Signs & Weight: Vital Signs (12 hours) Temp Pulse Resp BP BP Pulse Ox 05/22/18 09:58 91 L 05/22/18 08:00 96.5 F L 114 H 20 116/76 95 05/22/18 06:32 101 H 16 96 05/22/18 06:31 101 H 16 96 05/22/18 03:47 98.5 F 112 H 18 116/62 97 05/22/18 00:26 113 H 18 97 Weight Admit Weight 135 lb 3.2 oz Weight 133 lb 9.6 oz I&O: 05/21/18 05/22/18 05/23/18 06:59 06:59 06:59 Intake Total 900 1320 Output Total 700 1100 Balance 200 220 Result Diagrams: 05/22/18 04:44 05/22/18 04:44 EKG Reviewed by me: Yes (afib) Phys Exam - Physical Examination Constitutional: NAD HEENT: PERRLA, moist MMs, sclera anicteric Neck: no JVD, supple Respiratory: no rales, wheezing present Cardiovascular: irregular SM+ Gastrointestinal: soft, non-tender, no distention, positive bowel sounds Musculoskeletal: no edema, pulses present Neurological: non-focal, normal sensation, moves all 4 limbs Lymphatic: no nodes Psychiatric: normal affect, A&O x 3 Skin: no rash, normal turgor Dx/Plan (1) COPD exacerbation Code(s): J44.1 - CHRONIC OBSTRUCTIVE PULMONARY DISEASE W (ACUTE) EXACERBATION Status: Acute (2) Demand ischemia of myocardium Code(s): I24.8 - OTHER FORMS OF ACUTE ISCHEMIC HEART DISEASE Status: Acute (3) Paroxysmal atrial fibrillation with RVR Code(s): I48.0 - PAROXYSMAL ATRIAL FIBRILLATION Status: Acute (4) Pneumonia Code(s): J18.9 - PNEUMONIA, UNSPECIFIED ORGANISM Status: Acute (5) Diastolic CHF Code(s): I50.30 - UNSPECIFIED DIASTOLIC (CONGESTIVE) HEART FAILURE Status: Chronic Qualifiers: Heart failure chronicity: chronic Qualified Code(s): I50.32 - Chronic diastolic (congestive) heart failure Comment: BNP 700, was 1000 earlier in the year (6) H/O malignant neoplasm of colon Code(s): Z85.038 - PERSONAL HISTORY OF MALIGNANT NEOPLASM OF LARGE INTESTINE Status: Chronic Comment: prior h/o colectomy (7) HTN (hypertension) Code(s): I10 - ESSENTIAL (PRIMARY) HYPERTENSION Status: Chronic Qualifiers: Hypertension type: essential hypertension Qualified Code(s): I10 - Essential (primary) hypertension (8) Hypothyroidism Code(s): E03.9 - HYPOTHYROIDISM, UNSPECIFIED Status: Chronic Qualifiers: Hypothyroidism type: unspecified Qualified Code(s): E03.9 - Hypothyroidism , unspecified (9) Moderate mitral regurgitation by prior echocardiogram Code(s): I34.0 - NONRHEUMATIC MITRAL (VALVE) INSUFFICIENCY Status: Chronic (10) PFO (patent foramen ovale) Code(s): Q21.1 - ATRIAL SEPTAL DEFECT Status: Chronic - Plan cont current plan of care, continue antibiotics, PT/OT, respiratory therapy, out of bed/ambulate * continue rocephin and doxy * continue flecainide * medication reviewed as below * symptomatic treatment * continue respiratory therapy * today will evaluate for any need for home oxygen. Review of Systems - Review of Systems Constitutional: negative: fever, chills, sweats, weakness, malaise, other Eyes: negative: Pain, Vision Change, Conjunctivae Inflammation, Eyelid Inflammation, Redness, Other ENT: negative: Ear Pain, Ear Discharge, Nose Pain, Nose Discharge, Nose Congestion, Mouth Pain, Mouth Swelling, Throat Pain, Throat Swelling, Other Respiratory: Cough, SOB with Excertion. negative: Dry, Shortness of Breath, Hemoptysis, Pleuritic Pain, Sputum, Wheezing Cardiovascular: negative: chest pain, palpitations, orthopnea, paroxysmal nocturnal dyspnea, edema, light headedness, other Gastrointestinal: negative: Nausea, Vomiting, Abdominal Pain, Diarrhea, Constipation, Melena, Hematochezia, Other Genitourinary: negative: Dysuria, Frequency, Incontinence, Hematuria, Retention , Other Musculoskeletal: negative: Neck Pain, Shoulder Pain, Arm Pain, Back Pain, Hand Pain, Leg Pain, Foot Pain, Other Skin: negative: Rash, Lesions, [place], Bruising, Other - Medications/Allergies Allergies/Adverse Reactions: Allergies Allergy/AdvReac Type Severity Reaction Status Date / Time codeine Allergy Verified 04/24/18 15:19 Medications: Current Medications Acetaminophen (Tylenol) 650 mg PO Q4H PRN PRN Reason: Headache/Fever or Pain Last Admin: 05/22/18 04:41 Dose: 650 mg Acetaminophen (Tylenol) 650 mg SC Q4H PRN PRN Reason: Headache/Fever or Pain Al Hydroxide/Mg Hydroxide (Maalox) 15 ml PO Q4H PRN PRN Reason: Heartburn or Indigestion Albuterol/Ipratropium (Duoneb) 3 ml NEB [id number] PRN PRN Reason: SOB &/or Wheezing Albuterol/Ipratropium (Duoneb) 3 ml NEB [id number] [facility] Last Admin: 05/22/18 06:31 Dose: 3 ml Apixaban (Eliquis) 5 mg PO BID [facility] Last Admin: 05/21/18 21:49 Dose: 5 mg Artificial Tears (Tears Naturale) 0 drop EA EYE PRN PRN PRN Reason: Dry Eyes Aspirin (Ecotrin) 81 mg PO DAILY [facility] Last Admin: 05/22/18 10:00 Dose: 81 mg Benzonatate (Tessalon) 100 mg PO TID [facility] Last Admin: 05/21/18 21:49 Dose: 100 mg Bisacodyl (Dulcolax) 10 mg PO DAILYPRN PRN PRN Reason: Constipation Last Admin: 05/21/18 21:50 Dose: 10 mg Docusate Sodium (Colace) 100 mg PO BID [facility] Last Admin: 05/22/18 10:00 Dose: Not Given Doxycycline Hyclate (Vibramycin) 100 mg PO BID [facility] Stop: 05/26/18 21:01 Last Admin: 05/22/18 10:00 Dose: 100 mg Famotidine (Pepcid) 20 mg PO BID [facility] Last Admin: 05/22/18 10:00 Dose: 20 mg Flecainide Acetate (Tambocor) 100 mg PO Q12HR [facility] Last Admin: 05/22/18 10:00 Dose: 100 mg Furosemide (Lasix) 20 mg PO DAILY [facility] Last Admin: 05/22/18 10:00 Dose: 20 mg Guaifenesin (Robitussin Sf) 200 mg PO Q4H PRN PRN Reason: Cough Hydralazine HCl (Apresoline) 10 mg SLOW IVP Q4H PRN PRN Reason: Systolic BP > 180 Ceftriaxone Sodium 2 gm/ (Sodium Chloride) 100 mls @ 200 mls/hr IVPB Q24HR@ 0300 [facility] Last Admin: 05/22/18 04:23 Dose: 100 mls Levothyroxine Sodium (Synthroid) 50 mcg PO 0600 [facility] Last Admin: 05/22/18 05:06 Dose: 50 mcg Methylprednisolone Sodium Succinate (Solu-Medrol) 40 mg IVP Q6HR [facility] Last Admin: 05/22/18 05:06 Dose: 40 mg Metoclopramide HCl (Reglan) 5 mg IVP Q4H PRN PRN Reason: Nausea Metoclopramide HCl (Reglan) 5 mg PO Q4H PRN PRN Reason: Nausea Mineral Oil/White Petrolatum (Eucerin Cream) 0 gm TOP BIDPRN PRN PRN Reason: Dry Skin Mometasone Furoate/Formoterol Fumar (Dulera 200 Mcg/5 Mcg Inhaler) 2 puff INH BID-RT [facility] Last Admin: 05/22/18 06:32 Dose: 2 puff Phenol (Chloraseptic [place] 180 Ml Bot) 0 ml PO PRN PRN PRN Reason: Sore Throat Senna (Senokot) 2 tab PO HSPRN PRN PRN Reason: Constipation Last Admin: 05/20/18 21:44 Dose: 2 tab Senna/Docusate Sodium (Senokot S) 1 tab PO DAILY [facility] Last Admin: 05/22/18 10:01 Dose: Not Given Sodium Chloride (Flush - Normal Saline) 10 ml IVF Q12HR [facility] Last Admin: 05/21/18 21:50 Dose: 10 ml Sodium Chloride (Flush - Normal Saline) 10 ml IVF PRN PRN PRN Reason: Saline Flush Last Admin: 05/21/18 05:27 Dose: 10 ml Sodium Chloride ([place] Nasal [place] 0.65%) 0 ml EA NARE QIDPRN PRN PRN Reason: Nasal Congestion Zolpidem Tartrate (Ambien) 5 mg PO HSPRN PRN PRN Reason: .INSOMNIA Last Admin: 05/20/18 20:29 Dose: 5 mg
--- NOTE | 2018-05-22 10:30 | PDOC.CTH ---
Cardiology Progress Note - Subjective pt. seen and eval. no new complaints. Still in Afib. with RVR. I have discussed with her about another cardioversion today and she is agreeable. - Objective Vital Signs Temp Pulse Resp BP BP Pulse Ox 05/22/18 09:58 91 L 05/22/18 08:00 96.5 F L 114 H 20 116/76 95 05/22/18 06:32 101 H 16 96 05/22/18 06:31 101 H 16 96 05/22/18 03:47 98.5 F 112 H 18 116/62 97 05/22/18 00:26 113 H 18 97 Admit Weight 135 lb 3.2 oz Weight 133 lb 9.6 oz 05/21/18 05/22/18 05/23/18 06:59 06:59 06:59 Intake Total 900 1320 Output Total 700 1100 Balance 200 220 - Physical Examination General/Neuro: alert & oriented x3 Neck: carotid US brisk Lungs: CTA Heart: other: (irreg./irreg.) Abdomen: NT/ND, soft - Labs Result Diagrams: 05/22/18 04:44 05/22/18 04:44 Troponin/CKMB CK-MB (CK-2) 1.2 ng/mL (0-6.6) 05/20/18 15:08 Troponin I 0.034 ng/mL (< 0.028) H 05/20/18 20:48 - Assessment/Plan 1.Afib. with RVR. Plan for cardioversion later today ( pt. ate breakfast). Discussed procedure and risks. She agrees to proceed. 2.COPD: stable. 3. Diastolic CHF. 4. Hx. of tobacco abuse. She remains abstinent.
[2018-05-22] MEDS: Benzonatate 100 MG CAP PO SCH ×3 (12:45→21:38)
[2018-05-22] MEDS: Apixaban 5 MG TAB PO SCH ×2 (12:46→21:38)
--- NOTE | 2018-05-22 14:18 | PDOC.CTH ---
<Adry Santana - Last Filed: 05/22/18 14:16> Cardiology Progress Note - Subjective EP progress noted: Doing well overnight. No new cardiac concerns or complaints. + shortness of breath, weakness, burning with urination. Tolerating flecainide well Denies heart racing, palpitations, dizziness, lightheadedness, gait instability , passing out, or stroke like symptoms - Objective Vital Signs Temp Pulse Resp BP BP Pulse Ox 05/22/18 11:39 106 H 18 90 L 05/22/18 09:58 91 L 05/22/18 08:00 96.5 F L 114 H 20 116/76 95 05/22/18 06:32 101 H 16 96 05/22/18 06:31 101 H 16 96 05/22/18 03:47 98.5 F 112 H 18 116/62 97 Admit Weight 135 lb 3.2 oz Weight 133 lb 9.6 oz 05/21/18 05/22/18 05/23/18 06:59 06:59 06:59 Intake Total 900 1320 Output Total 700 1100 Balance 200 220 - Physical Examination General/Neuro: NAD Neck: no JVD present Lungs: unlabored respirations Heart: other: (irreg irreg) Abdomen: NT/ND, soft - Telemetry Telemetry Rhythm: AFib/flutter - Labs Result Diagrams: 05/22/18 04:44 05/22/18 04:44 Troponin/CKMB CK-MB (CK-2) 1.2 ng/mL (0-6.6) 05/20/18 15:08 Troponin I 0.034 ng/mL (< 0.028) H 05/20/18 20:48 - Assessment/Plan 1. Atrial fibrillation/flutter with rvr- tolerating flecainide well at 100mg BID. continue. Dig and verapamil stopped to prevent post CV bradycardia. Plan for DCCV later today with Dr. Barakat. QRS stable in flecainide (86ms). If CV unsuccessful may need to stop flec, 24 hr washout, and be loaded on amiodarone. 2. Oral anticoagulation on Eliquis- continue without interruption for stroke prophylaxis 3. Slow junctional rhythm post spontaneous conversion with PO dig, CCB, and IV CCB. All rate control stopped. No recurrence. <Mil,Luis - Last Filed: 05/22/18 15:08> Cardiology Progress Note - Objective Vital Signs Temp Pulse Resp BP BP Pulse Ox 05/22/18 11:39 106 H 18 90 L 05/22/18 09:58 91 L 05/22/18 08:00 96.5 F L 114 H 20 116/76 95 05/22/18 06:32 101 H 16 96 05/22/18 06:31 101 H 16 96 05/22/18 03:47 98.5 F 112 H 18 116/62 97 Admit Weight 135 lb 3.2 oz Weight 133 lb 9.6 oz 05/21/18 05/22/18 05/23/18 06:59 06:59 06:59 Intake Total 900 1320 Output Total 700 1100 Balance 200 220 - Labs Result Diagrams: 05/22/18 04:44 05/22/18 04:44 Troponin/CKMB CK-MB (CK-2) 1.2 ng/mL (0-6.6) 05/20/18 15:08 Troponin I 0.034 ng/mL (< 0.028) H 05/20/18 20:48 Attending Addendum - Attending Addendum Date/Time: 05/22/18 0307 I personally evaluated the patient and discussed the management with Mrs Santana. I agree with the History, Examination, Assessment and Plan documented above with any addition or exceptions noted below.
[2018-05-22] MEDS ORDERED: Diltiazem HCl 125 MG, Admixture Fee 1 EACH in Sodium Chloride 0.9% 100 ML IVPB SCH (18:30)
[2018-05-23] MEDS: cefTRIAXone\\ROCEPHIN 2 GM in Sodium Chloride 0.9% 100 ML IVPB SCH (04:08)
[2018-05-23] MEDS: Levothyroxine Sodium 50 MCG TAB PO SCH (05:44)
[2018-05-23] MEDS: Mometasone/Formoterol 120 PUFF INHALER INH SCH ×2 (06:49→18:42)
[2018-05-23] MEDS ORDERED: PROPOFOL 20 ML ONE (08:36)
[2018-05-23] MEDS: Senokot S 8.6-50 MG TAB PO SCH (09:48)
[2018-05-23] MEDS: Docusate 100 MG CAP PO SCH ×2 (09:48→20:45)
[2018-05-23] MEDS: Furosemide 20 MG TAB PO SCH (09:49)
[2018-05-23] MEDS: Apixaban 5 MG TAB PO SCH ×2 (09:49→20:45)
[2018-05-23] MEDS: Aspirin 81 mg Enteric Coated Tablet PO SCH (09:49)
[2018-05-23] MEDS: Famotidine 20 MG TAB PO SCH ×2 (09:50→20:45)
[2018-05-23] MEDS: Doxycycline 100 MG CAP PO SCH ×2 (09:50→20:45)
[2018-05-23] MEDS: Benzonatate 100 MG CAP PO SCH ×3 (09:50→20:45)
[2018-05-23] MEDS: Flecainide 50 MG TAB PO SCH ×2 (09:51→20:45)
[2018-05-23] MEDS ORDERED: PROPOFOL 200 MG/20 ML VIAL ONE (10:09)
--- NOTE | 2018-05-23 10:19 | OP ---
ELECTRICAL CARDIOVERSION: Date: 05/23/18 This is a 72-year-old female with atrial fibrillation and rapid ventricular response, and despite robyn ng on multiple medications, she continues to have rapid ventricular response. She was advised to unde rgo electrical cardioversion. She has been on oral anticoagulation in the form of Eliquis for several months. She was taken to the recovery area where she underwent short acting propofol. Using one atte mpt at 200 joules, she was successfully converted to normal sinus rhythm. Initially, she had a juncti onal rhythm for a few seconds and then converted back to a normal sinus rhythm with a heart rate in t he 60s. There were no difficulties or complications encountered.
[2018-05-23] MEDS ORDERED: Hydrocortisone 1% Cream 30 GM TUBE ONE (10:44)
--- NOTE | 2018-05-23 11:03 | PDOC.PN ---
- Subjective Encounter Start Date: 05/23/18 Encounter Start Time: 09:00 Patient seen and examined for copd and afib, today she had DCCV. No overnight events - Objective Resuscitation Status: Resuscitation Status DNR:Do Not Resuscitate MAR Reviewed: Yes Vital Signs & Weight: Vital Signs (12 hours) Temp Pulse Resp BP BP Pulse Ox 05/23/18 08:00 98.0 F 120 H 18 05/23/18 07:36 98.0 F 120 H 18 139/61 97 05/23/18 07:24 94 L 05/23/18 06:49 130 H 20 94 L 05/23/18 06:39 92 20 94 L 05/23/18 03:26 97.3 F L 75 18 124/67 93 L 05/23/18 01:00 109 H 18 88 L Weight Admit Weight 135 lb 3.2 oz Weight 133 lb 9.6 oz I&O: 05/22/18 05/23/18 05/24/18 06:59 06:59 06:59 Intake Total 1320 Output Total 1100 Balance 220 Result Diagrams: 05/22/18 04:44 05/22/18 04:44 EKG Reviewed by me: Yes Phys Exam - Physical Examination Constitutional: NAD HEENT: PERRLA, moist MMs, sclera anicteric Neck: no JVD, supple Respiratory: no wheezing, no rales, no rhonchi Cardiovascular: RRR, no significant murmur, no rub Gastrointestinal: soft, non-tender, no distention, positive bowel sounds Musculoskeletal: no edema, pulses present Neurological: non-focal, normal sensation, moves all 4 limbs Psychiatric: normal affect, A&O x 3 Skin: no rash, normal turgor Dx/Plan (1) COPD exacerbation Code(s): J44.1 - CHRONIC OBSTRUCTIVE PULMONARY DISEASE W (ACUTE) EXACERBATION Status: Acute Comment: improving (2) Demand ischemia of myocardium Code(s): I24.8 - OTHER FORMS OF ACUTE ISCHEMIC HEART DISEASE Status: Acute (3) Paroxysmal atrial fibrillation with RVR Code(s): I48.0 - PAROXYSMAL ATRIAL FIBRILLATION Status: Acute Comment: s/p DCCV and now in NSR (4) Pneumonia Code(s): J18.9 - PNEUMONIA, UNSPECIFIED ORGANISM Status: Acute Comment: on rocephin and doxy (5) Diastolic CHF Code(s): I50.30 - UNSPECIFIED DIASTOLIC (CONGESTIVE) HEART FAILURE Status: Chronic Qualifiers: Heart failure chronicity: chronic Qualified Code(s): I50.32 - Chronic diastolic (congestive) heart failure Comment: BNP 700, was 1000 earlier in the year (6) H/O malignant neoplasm of colon Code(s): Z85.038 - PERSONAL HISTORY OF MALIGNANT NEOPLASM OF LARGE INTESTINE Status: Chronic Comment: prior h/o colectomy (7) HTN (hypertension) Code(s): I10 - ESSENTIAL (PRIMARY) HYPERTENSION Status: Chronic Qualifiers: Hypertension type: essential hypertension Qualified Code(s): I10 - Essential (primary) hypertension (8) Hypothyroidism Code(s): E03.9 - HYPOTHYROIDISM, UNSPECIFIED Status: Chronic Qualifiers: Hypothyroidism type: unspecified Qualified Code(s): E03.9 - Hypothyroidism , unspecified (9) Moderate mitral regurgitation by prior echocardiogram Code(s): I34.0 - NONRHEUMATIC MITRAL (VALVE) INSUFFICIENCY Status: Chronic (10) PFO (patent foramen ovale) Code(s): Q21.1 - ATRIAL SEPTAL DEFECT Status: Chronic - Plan cont current plan of care, continue antibiotics, respiratory therapy * today will reduce solumedrol 20 mg IV q 8 hourly * s/p successful cardioversion for afib * will monitor today on tele for any recurrence, if recurrence then she will need amiodaron loading after DC flecainide * medication reviewed as below * symptomatic treatment * continue rocephin and doxy * expecting discharge in next 24-48 hours * wean off oxygen as tolerated. Review of Systems - Review of Systems Eyes: negative: Pain, Vision Change, Conjunctivae Inflammation, Eyelid Inflammation, Redness, Other ENT: negative: Ear Pain, Ear Discharge, Nose Pain, Nose Discharge, Nose Congestion, Mouth Pain, Mouth Swelling, Throat Pain, Throat Swelling, Other Respiratory: negative: Cough, Dry, Shortness of Breath, Hemoptysis, SOB with Excertion, Pleuritic Pain, Sputum, Wheezing Cardiovascular: negative: chest pain, palpitations, orthopnea, paroxysmal nocturnal dyspnea, edema, light headedness, other Gastrointestinal: negative: Nausea, Vomiting, Abdominal Pain, Diarrhea, Constipation, Melena, Hematochezia, Other Genitourinary: negative: Dysuria, Frequency, Incontinence, Hematuria, Retention , Other Musculoskeletal: negative: Neck Pain, Shoulder Pain, Arm Pain, Back Pain, Hand Pain, Leg Pain, Foot Pain, Other Skin: negative: Rash, Lesions, [place], Bruising, Other - Medications/Allergies Allergies/Adverse Reactions: Allergies Allergy/AdvReac Type Severity Reaction Status Date / Time codeine Allergy Verified 04/24/18 15:19 Medications: Current Medications Acetaminophen (Tylenol) 650 mg PO Q4H PRN PRN Reason: Headache/Fever or Pain Last Admin: 05/22/18 20:25 Dose: 650 mg Acetaminophen (Tylenol) 650 mg [place] Q4H PRN PRN Reason: Headache/Fever or Pain Al Hydroxide/Mg Hydroxide (Maalox) 15 ml PO Q4H PRN PRN Reason: Heartburn or Indigestion Albuterol/Ipratropium (Duoneb) 3 ml NEB [id number] PRN PRN Reason: SOB &/or Wheezing Albuterol/Ipratropium (Duoneb) 3 ml NEB [id number] [facility] Last Admin: 05/23/18 06:39 Dose: 3 ml Apixaban (Eliquis) 5 mg PO BID [facility] Last Admin: 05/23/18 09:49 Dose: 5 mg Artificial Tears (Tears Naturale) 0 drop EA EYE PRN PRN PRN Reason: Dry Eyes Aspirin (Ecotrin) 81 mg PO DAILY [facility] Last Admin: 05/23/18 09:49 Dose: 81 mg Benzonatate (Tessalon) 100 mg PO TID [facility] Last Admin: 05/23/18 09:50 Dose: 100 mg Bisacodyl (Dulcolax) 10 mg PO DAILYPRN PRN PRN Reason: Constipation Last Admin: 05/21/18 21:50 Dose: 10 mg Docusate Sodium (Colace) 100 mg PO BID [facility] Last Admin: 05/23/18 09:48 Dose: Not Given Doxycycline Hyclate (Vibramycin) 100 mg PO BID [facility] Stop: 05/26/18 21:01 Last Admin: 05/23/18 09:50 Dose: 100 mg Famotidine (Pepcid) 20 mg PO BID [facility] Last Admin: 05/23/18 09:50 Dose: 20 mg Flecainide Acetate (Tambocor) 100 mg PO Q12HR [facility] Last Admin: 05/23/18 09:51 Dose: 100 mg Furosemide (Lasix) 20 mg PO DAILY [facility] Last Admin: 05/23/18 09:49 Dose: 20 mg Guaifenesin (Robitussin Sf) 200 mg PO Q4H PRN PRN Reason: Cough Hydralazine HCl (Apresoline) 10 mg SLOW IVP Q4H PRN PRN Reason: Systolic BP > 180 Ceftriaxone Sodium 2 gm/ (Sodium Chloride) 100 mls @ 200 mls/hr IVPB Q24HR@ 0300 [facility] Last Admin: 05/23/18 04:08 Dose: 100 mls Levothyroxine Sodium (Synthroid) 50 mcg PO 0600 [facility] Last Admin: 05/23/18 05:44 Dose: 50 mcg Methylprednisolone Sodium Succinate (Solu-Medrol) 40 mg IVP Q6HR [facility] Metoclopramide HCl (Reglan) 5 mg IVP Q4H PRN PRN Reason: Nausea Metoclopramide HCl (Reglan) 5 mg PO Q4H PRN PRN Reason: Nausea Mineral Oil/White Petrolatum (Eucerin Cream) 0 gm TOP BIDPRN PRN PRN Reason: Dry Skin Mometasone Furoate/Formoterol Fumar (Dulera 200 Mcg/5 Mcg Inhaler) 2 puff INH BID-RT [facility] Last Admin: 05/23/18 06:49 Dose: 2 puff Phenol (Chloraseptic [place] 180 Ml Bot) 0 ml PO PRN PRN PRN Reason: Sore Throat Senna (Senokot) 2 tab PO HSPRN PRN PRN Reason: Constipation Last Admin: 05/20/18 21:44 Dose: 2 tab Senna/Docusate Sodium (Senokot S) 1 tab PO DAILY [facility] Last Admin: 05/23/18 09:48 Dose: Not Given Sodium Chloride ([place] Nasal [place] 0.65%) 0 ml EA NARE QIDPRN PRN PRN Reason: Nasal Congestion Sodium Chloride (Flush - Normal Saline) 10 ml IVF Q12HR [facility] Last Admin: 05/23/18 09:51 Dose: 10 ml Sodium Chloride (Flush - Normal Saline) 10 ml IVF PRN PRN PRN Reason: Saline Flush Zolpidem Tartrate (Ambien) 5 mg PO HSPRN PRN PRN Reason: .INSOMNIA Last Admin: 05/20/18 20:29 Dose: 5 mg
[2018-05-23] MEDS: Acetaminophen 325 MG TAB PO PRN (18:08)
[2018-05-24] MEDS: cefTRIAXone\\ROCEPHIN 2 GM in Sodium Chloride 0.9% 100 ML IVPB SCH (03:39)
[2018-05-24 05:11] LABS: Hemoglobin 13.2 g/dL (12.0-16.0); Platelet Count 257 thou/uL (130-400)
[2018-05-24] MEDS: Levothyroxine Sodium 50 MCG TAB PO SCH (05:29)
[2018-05-24] MEDS: Mometasone/Formoterol 120 PUFF INHALER INH SCH ×2 (08:43→19:29)
[2018-05-24] MEDS: Aspirin 81 mg Enteric Coated Tablet PO SCH (09:41)
[2018-05-24] MEDS: Flecainide 50 MG TAB PO SCH (09:41)
[2018-05-24] MEDS: Docusate 100 MG CAP PO SCH ×2 (09:42→22:47)
[2018-05-24] MEDS: Senokot S 8.6-50 MG TAB PO SCH (09:42)
[2018-05-24] MEDS: Famotidine 20 MG TAB PO SCH ×2 (09:42→22:47)
[2018-05-24] MEDS: Apixaban 5 MG TAB PO SCH ×2 (09:42→22:47)
[2018-05-24] MEDS: Furosemide 20 MG TAB PO SCH (09:42)
[2018-05-24] MEDS: Benzonatate 100 MG CAP PO SCH ×3 (09:47→22:46)
[2018-05-24] MEDS: Doxycycline 100 MG CAP PO SCH ×2 (09:47→22:46)
[2018-05-24] MEDS: Acetaminophen 325 MG TAB PO PRN ×2 (09:54→22:47)
--- NOTE | 2018-05-24 12:38 | EKG ---
Test Reason : Blood Pressure : / mmHG Vent. Rate : 071 BPM Atrial Rate : 071 BPM P-R Int : 192 ms QRS Dur : 072 ms QT Int : 538 ms P-R-T Axes : 088 064 092 degrees QTc Int : 584 ms Normal sinus rhythm Nonspecific ST and T wave abnormality Prolonged QT Abnormal ECG Confirmed by HIMA AYALA M.D. ([id number]), purchase request editor CYNTHIA FIGUEROA ([id number]) on 05/24/2018 12:38:05 PM Referred By: Confirmed By:HIMA AYALA M.D.
--- NOTE | 2018-05-24 14:13 | PDOC.PN ---
- Subjective Encounter Start Date: 05/24/18 Encounter Start Time: 14:10 Subjective: feels well. denies any CP/palpitations - Objective Resuscitation Status: Resuscitation Status DNR:Do Not Resuscitate MAR Reviewed: Yes Vital Signs & Weight: Vital Signs (12 hours) Temp Pulse Resp BP Pulse Ox 05/24/18 08:43 84 12 96 05/24/18 07:15 98.7 F 116 H 18 178/84 H 95 05/24/18 03:33 98 F 98 16 160/98 H 97 Weight Admit Weight 135 lb 3.2 oz Weight 133 lb 9.6 oz Result Diagrams: 05/24/18 04:33 05/24/18 04:33 Additional Labs: Microbiology 05/21/18 10:15 Sputum Respiratory Culture - Final Yeast species 05/20/18 15:18 Urine clean catch Urine Culture - Final NO GROWTH AT 36 HOURS 05/20/18 15:08 Venous blood - Left Arm Blood Culture - Preliminary NO GROWTH AT 48 HOURS 05/20/18 15:08 Venous blood - Left Arm Blood Culture - Preliminary NO GROWTH AT 48 HOURS Laboratory Tests 05/23/18 04:37 TSH 3rd Generation 0.4073 labs reviewed Phys Exam - Physical Examination Constitutional: NAD HEENT: PERRLA, moist MMs, sclera anicteric, oral pharynx no lesions Neck: no nodes, no JVD, supple, full ROM Respiratory: no wheezing, no rales, no rhonchi, clear to auscultation bilateral Cardiovascular: RRR, no significant murmur, no rub Gastrointestinal: soft, non-tender, no distention, positive bowel sounds Musculoskeletal: no edema, pulses present Neurological: non-focal, normal sensation, moves all 4 limbs Psychiatric: normal affect, A&O x 3 Skin: no rash Dx/Plan (1) Paroxysmal atrial fibrillation with RVR Code(s): I48.0 - PAROXYSMAL ATRIAL FIBRILLATION Status: Acute Comment: s/p DCCV and failed-back in a-fib (2) COPD exacerbation Code(s): J44.1 - CHRONIC OBSTRUCTIVE PULMONARY DISEASE W (ACUTE) EXACERBATION Status: Acute Comment: improving (3) Demand ischemia of myocardium Code(s): I24.8 - OTHER FORMS OF ACUTE ISCHEMIC HEART DISEASE Status: Acute (4) Diastolic CHF Code(s): I50.30 - UNSPECIFIED DIASTOLIC (CONGESTIVE) HEART FAILURE Status: Chronic Qualifiers: Heart failure chronicity: chronic Qualified Code(s): I50.32 - Chronic diastolic (congestive) heart failure Comment: BNP 700, was 1000 earlier in the year (5) H/O malignant neoplasm of colon Code(s): Z85.038 - PERSONAL HISTORY OF MALIGNANT NEOPLASM OF LARGE INTESTINE Status: Chronic Comment: prior h/o colectomy (6) HTN (hypertension) Code(s): I10 - ESSENTIAL (PRIMARY) HYPERTENSION Status: Chronic Qualifiers: Hypertension type: essential hypertension Qualified Code(s): I10 - Essential (primary) hypertension (7) Hypothyroidism Code(s): E03.9 - HYPOTHYROIDISM, UNSPECIFIED Status: Chronic Qualifiers: Hypothyroidism type: unspecified Qualified Code(s): E03.9 - Hypothyroidism , unspecified (8) Moderate mitral regurgitation by prior echocardiogram Code(s): I34.0 - NONRHEUMATIC MITRAL (VALVE) INSUFFICIENCY Status: Chronic (9) PFO (patent foramen ovale) Code(s): Q21.1 - ATRIAL SEPTAL DEFECT Status: Chronic - Plan PT/OT, out of bed/ambulate, DVT proph w/SCDs revereted back to a-fib. would benefit by amiodarone.still on Flecianide -: will discuss w cardiology about starting amiodarone-drip vs PO -: all olayinka blocking agents stopped post CV.HR acceptable but high -: cont Eliquis for stroke prophylaxis -: hemodynamically stable.am labs * . Review of Systems - Review of Systems Constitutional: negative: fever, chills, sweats, weakness, malaise, other ENT: negative: Ear Pain, Ear Discharge, Nose Pain, Nose Discharge, Nose Congestion, Mouth Pain, Mouth Swelling, Throat Pain, Throat Swelling, Other Respiratory: negative: Cough, Dry, Shortness of Breath, Hemoptysis, SOB with Excertion, Pleuritic Pain, Sputum, Wheezing Cardiovascular: negative: chest pain, palpitations, orthopnea, paroxysmal nocturnal dyspnea, edema, light headedness, other Gastrointestinal: negative: Nausea, Vomiting, Abdominal Pain, Diarrhea, Constipation, Melena, Hematochezia, Other Genitourinary: negative: Dysuria, Frequency, Incontinence, Hematuria, Retention , Other Musculoskeletal: negative: Neck Pain, Shoulder Pain, Arm Pain, Back Pain, Hand Pain, Leg Pain, Foot Pain, Other Neurological: negative: Weakness, Numbness, Incoordination, Change in Speech, Confusion, Seizures, Other - Medications/Allergies Allergies/Adverse Reactions: Allergies Allergy/AdvReac Type Severity Reaction Status Date / Time codeine Allergy Verified 04/24/18 15:19 Medications: Current Medications Acetaminophen (Tylenol) 650 mg PO Q4H PRN PRN Reason: Headache/Fever or Pain Last Admin: 05/24/18 09:54 Dose: 650 mg Acetaminophen (Tylenol) 650 mg [place] Q4H PRN PRN Reason: Headache/Fever or Pain Al Hydroxide/Mg Hydroxide (Maalox) 15 ml PO Q4H PRN PRN Reason: Heartburn or Indigestion Albuterol/Ipratropium (Duoneb) 3 ml NEB [id number] PRN PRN Reason: SOB &/or Wheezing Albuterol/Ipratropium (Duoneb) 3 ml NEB [id number] [facility] Last Admin: 05/24/18 08:40 Dose: Not Given Apixaban (Eliquis) 5 mg PO BID [facility] Last Admin: 05/24/18 09:42 Dose: 5 mg Artificial Tears (Tears Naturale) 0 drop EA EYE PRN PRN PRN Reason: Dry Eyes Aspirin (Ecotrin) 81 mg PO DAILY [facility] Last Admin: 05/24/18 09:41 Dose: 81 mg Benzonatate (Tessalon) 100 mg PO TID [facility] Last Admin: 05/24/18 09:47 Dose: 100 mg Bisacodyl (Dulcolax) 10 mg PO DAILYPRN PRN PRN Reason: Constipation Last Admin: 05/21/18 21:50 Dose: 10 mg Docusate Sodium (Colace) 100 mg PO BID [facility] Last Admin: 05/24/18 09:42 Dose: 100 mg Doxycycline Hyclate (Vibramycin) 100 mg PO BID [facility] Stop: 05/26/18 21:01 Last Admin: 05/24/18 09:47 Dose: 100 mg Famotidine (Pepcid) 20 mg PO BID [facility] Last Admin: 05/24/18 09:42 Dose: 20 mg Flecainide Acetate (Tambocor) 100 mg PO Q12HR [facility] Last Admin: 05/24/18 09:41 Dose: 100 mg Furosemide (Lasix) 20 mg PO DAILY [facility] Last Admin: 05/24/18 09:42 Dose: 20 mg Guaifenesin (Robitussin Sf) 200 mg PO Q4H PRN PRN Reason: Cough Hydralazine HCl (Apresoline) 10 mg SLOW IVP Q4H PRN PRN Reason: Systolic BP > 180 Ceftriaxone Sodium 2 gm/ (Sodium Chloride) 100 mls @ 200 mls/hr IVPB Q24HR@ 0300 [facility] Last Admin: 05/24/18 03:39 Dose: 100 mls Levothyroxine Sodium (Synthroid) 50 mcg PO 0600 [facility] Last Admin: 05/24/18 05:29 Dose: 50 mcg Methylprednisolone Sodium Succinate (Solu-Medrol) 40 mg IVP Q12H [facility] Metoclopramide HCl (Reglan) 5 mg IVP Q4H PRN PRN Reason: Nausea Metoclopramide HCl (Reglan) 5 mg PO Q4H PRN PRN Reason: Nausea Mineral Oil/White Petrolatum (Eucerin Cream) 0 gm TOP BIDPRN PRN PRN Reason: Dry Skin Mometasone Furoate/Formoterol Fumar (Dulera 200 Mcg/5 Mcg Inhaler) 2 puff INH BID-RT [facility] Last Admin: 05/24/18 08:43 Dose: 2 puff Phenol (Chloraseptic [place] 180 Ml Bot) 0 ml PO PRN PRN PRN Reason: Sore Throat Senna (Senokot) 2 tab PO HSPRN PRN PRN Reason: Constipation Last Admin: 05/20/18 21:44 Dose: 2 tab Senna/Docusate Sodium (Senokot S) 1 tab PO DAILY [facility] Last Admin: 05/24/18 09:42 Dose: 1 tab Sodium Chloride ([place] Nasal [place] 0.65%) 0 ml EA NARE QIDPRN PRN PRN Reason: Nasal Congestion Sodium Chloride (Flush - Normal Saline) 10 ml IVF Q12HR [facility] Last Admin: 05/24/18 09:43 Dose: 10 ml Sodium Chloride (Flush - Normal Saline) 10 ml IVF PRN PRN PRN Reason: Saline Flush Zolpidem Tartrate (Ambien) 5 mg PO HSPRN PRN PRN Reason: .INSOMNIA Last Admin: 05/20/18 20:29 Dose: 5 mg
[2018-05-24] MEDS ORDERED: Amiodarone 200 MG TAB PO SCH (21:00)
[2018-05-25] MEDS: cefTRIAXone\\ROCEPHIN 2 GM in Sodium Chloride 0.9% 100 ML IVPB SCH (03:38)
[2018-05-25] MEDS: Levothyroxine Sodium 50 MCG TAB PO SCH (05:14)
[2018-05-25] MEDS: Senokot S 8.6-50 MG TAB PO SCH (08:27)
[2018-05-25] MEDS: Doxycycline 100 MG CAP PO SCH ×2 (08:27→20:45)
[2018-05-25] MEDS: Apixaban 5 MG TAB PO SCH ×2 (08:27→20:45)
[2018-05-25] MEDS: Benzonatate 100 MG CAP PO SCH ×3 (08:28→20:47)
[2018-05-25] MEDS: Famotidine 20 MG TAB PO SCH ×2 (08:28→20:45)
[2018-05-25] MEDS: Furosemide 20 MG TAB PO SCH (08:28)
[2018-05-25] MEDS: Docusate 100 MG CAP PO SCH ×2 (08:28→20:52)
[2018-05-25] MEDS: Aspirin 81 mg Enteric Coated Tablet PO SCH (08:28)
[2018-05-25] MEDS: Acetaminophen 325 MG TAB PO PRN (08:28)
[2018-05-25] MEDS: Mometasone/Formoterol 120 PUFF INHALER INH SCH ×2 (09:21→19:11)
[2018-05-25] MEDS: Diabetic Tussin 200 MG/10 ML UDCUP PO PRN (12:33)
[2018-05-25] MEDS ORDERED: Diltiazem HCl 125 MG, Admixture Fee 1 EACH in Sodium Chloride 0.9% 100 ML IVPB SCH (13:15)
--- NOTE | 2018-05-25 14:45 | PDOC.PN ---
- Subjective Encounter Start Date: 05/25/18 Encounter Start Time: 14:43 Subjective: feels well. no CP/SOB/palpitations - Objective Resuscitation Status: Resuscitation Status DNR:Do Not Resuscitate MAR Reviewed: Yes Vital Signs & Weight: Vital Signs (12 hours) Temp Pulse Resp BP Pulse Ox 05/25/18 12:30 108 H 16 149/91 H 95 05/25/18 09:22 96 05/25/18 09:21 127 H 16 05/25/18 07:45 98.2 F 99 16 92 L 05/25/18 07:41 98.1 F 99 18 146/97 H 92 L 05/25/18 03:42 97.6 F 108 H 20 135/85 05/25/18 03:04 95 Weight Admit Weight 135 lb 3.2 oz Weight 133 lb 9.6 oz I&O: 05/24/18 05/25/18 05/26/18 06:59 06:59 06:59 Intake Total 1940 Output Total 3400 Balance -1460 Result Diagrams: 05/24/18 04:33 05/24/18 04:33 Additional Labs: Laboratory Tests 05/20/18 15:08 B-Natriuretic Peptide 758.2 H labs reviewed Microbiology 05/21/18 10:15 Sputum Respiratory Culture - Final Yeast species 05/20/18 15:18 Urine clean catch Urine Culture - Final NO GROWTH AT 36 HOURS 05/20/18 15:08 Venous blood - Left Arm Blood Culture - Preliminary NO GROWTH AT 48 HOURS 05/20/18 15:08 Venous blood - Left Arm Blood Culture - Preliminary NO GROWTH AT 48 HOURS Phys Exam - Physical Examination Constitutional: NAD HEENT: PERRLA, moist MMs, sclera anicteric, oral pharynx no lesions Neck: no nodes, no JVD, supple, full ROM Respiratory: no wheezing, no rales, no rhonchi, clear to auscultation bilateral Cardiovascular: no significant murmur, no rub, irregular Gastrointestinal: soft, non-tender, no distention, positive bowel sounds Musculoskeletal: no edema, pulses present Neurological: non-focal, normal sensation, moves all 4 limbs Psychiatric: normal affect, A&O x 3 Skin: no rash Dx/Plan (1) Paroxysmal atrial fibrillation with RVR Code(s): I48.0 - PAROXYSMAL ATRIAL FIBRILLATION Status: Acute Comment: s/p DCCV and failed-back in a-fib (2) COPD exacerbation Code(s): J44.1 - CHRONIC OBSTRUCTIVE PULMONARY DISEASE W (ACUTE) EXACERBATION Status: Acute Comment: improving (3) Pneumonia Code(s): J18.9 - PNEUMONIA, UNSPECIFIED ORGANISM Status: Suspected Comment: on rocephin and doxy (4) Demand ischemia of myocardium Code(s): I24.8 - OTHER FORMS OF ACUTE ISCHEMIC HEART DISEASE Status: Acute (5) Diastolic CHF Code(s): I50.30 - UNSPECIFIED DIASTOLIC (CONGESTIVE) HEART FAILURE Status: Chronic Qualifiers: Heart failure chronicity: chronic Qualified Code(s): I50.32 - Chronic diastolic (congestive) heart failure Comment: BNP 700, was 1000 earlier in the year (6) H/O malignant neoplasm of colon Code(s): Z85.038 - PERSONAL HISTORY OF MALIGNANT NEOPLASM OF LARGE INTESTINE Status: Chronic Comment: prior h/o colectomy (7) HTN (hypertension) Code(s): I10 - ESSENTIAL (PRIMARY) HYPERTENSION Status: Chronic Qualifiers: Hypertension type: essential hypertension Qualified Code(s): I10 - Essential (primary) hypertension (8) Hypothyroidism Code(s): E03.9 - HYPOTHYROIDISM, UNSPECIFIED Status: Chronic Qualifiers: Hypothyroidism type: unspecified Qualified Code(s): E03.9 - Hypothyroidism , unspecified (9) Moderate mitral regurgitation by prior echocardiogram Code(s): I34.0 - NONRHEUMATIC MITRAL (VALVE) INSUFFICIENCY Status: Chronic (10) PFO (patent foramen ovale) Code(s): Q21.1 - ATRIAL SEPTAL DEFECT Status: Chronic - Plan plan discussed w/ family, continue antibiotics, out of bed/ambulate, DVT proph w /SCDs DC flecainide and washout period of 24 hrs -: start amidarone from tonight. -: chirag HURST in am a,if stable & cleared by cardiology -: cont home meds as below.cont tele monitoring -: cont ABx empirically for possible PNA /UTI.follow Cx-negative so far * .am labs Review of Systems - Review of Systems Constitutional: negative: fever, chills, sweats, weakness, malaise, other ENT: negative: Ear Pain, Ear Discharge, Nose Pain, Nose Discharge, Nose Congestion, Mouth Pain, Mouth Swelling, Throat Pain, Throat Swelling, Other Respiratory: negative: Cough, Dry, Shortness of Breath, Hemoptysis, SOB with Excertion, Pleuritic Pain, Sputum, Wheezing Cardiovascular: negative: chest pain, palpitations, orthopnea, paroxysmal nocturnal dyspnea, edema, light headedness, other Gastrointestinal: negative: Nausea, Vomiting, Abdominal Pain, Diarrhea, Constipation, Melena, Hematochezia, Other Genitourinary: negative: Dysuria, Frequency, Incontinence, Hematuria, Retention , Other Musculoskeletal: negative: Neck Pain, Shoulder Pain, Arm Pain, Back Pain, Hand Pain, Leg Pain, Foot Pain, Other Neurological: negative: Weakness, Numbness, Incoordination, Change in Speech, Confusion, Seizures, Other - Medications/Allergies Allergies/Adverse Reactions: Allergies Allergy/AdvReac Type Severity Reaction Status Date / Time codeine Allergy Verified 04/24/18 15:19 Medications: Current Medications Acetaminophen (Tylenol) 650 mg PO Q4H PRN PRN Reason: Headache/Fever or Pain Last Admin: 05/25/18 08:28 Dose: 650 mg Acetaminophen (Tylenol) 650 mg [place] Q4H PRN PRN Reason: Headache/Fever or Pain Al Hydroxide/Mg Hydroxide (Maalox) 15 ml PO Q4H PRN PRN Reason: Heartburn or Indigestion Albuterol/Ipratropium (Duoneb) 3 ml NEB [id number] PRN PRN Reason: SOB &/or Wheezing Albuterol/Ipratropium (Duoneb) 3 ml NEB [id number] [facility] Last Admin: 05/25/18 09:27 Dose: Not Given Amiodarone HCl (Cordarone) 400 mg PO TID [facility] Apixaban (Eliquis) 5 mg PO BID [facility] Last Admin: 05/25/18 08:27 Dose: 5 mg Artificial Tears (Tears Naturale) 0 drop EA EYE PRN PRN PRN Reason: Dry Eyes Aspirin (Ecotrin) 81 mg PO DAILY [facility] Last Admin: 05/25/18 08:28 Dose: 81 mg Benzonatate (Tessalon) 100 mg PO TID [facility] Last Admin: 05/25/18 14:25 Dose: 100 mg Bisacodyl (Dulcolax) 10 mg PO DAILYPRN PRN PRN Reason: Constipation Last Admin: 05/21/18 21:50 Dose: 10 mg Diltiazem HCl (Cardizem) 10 mg SLOW IVP NOW [facility] Stop: 05/25/18 15:00 Last Admin: 05/25/18 14:24 Dose: 10 mg Docusate Sodium (Colace) 100 mg PO BID [facility] Last Admin: 05/25/18 08:28 Dose: 100 mg Doxycycline Hyclate (Vibramycin) 100 mg PO BID [facility] Stop: 05/26/18 21:01 Last Admin: 05/25/18 08:27 Dose: 100 mg Famotidine (Pepcid) 20 mg PO BID [facility] Last Admin: 05/25/18 08:28 Dose: 20 mg Furosemide (Lasix) 20 mg PO DAILY [facility] Last Admin: 05/25/18 08:28 Dose: 20 mg Guaifenesin (Robitussin Sf) 200 mg PO Q4H PRN PRN Reason: Cough Last Admin: 05/25/18 12:33 Dose: 200 mg Hydralazine HCl (Apresoline) 10 mg SLOW IVP Q4H PRN PRN Reason: Systolic BP > 180 Ceftriaxone Sodium 2 gm/ (Sodium Chloride) 100 mls @ 200 mls/hr IVPB Q24HR@ 0300 [facility] Last Admin: 05/25/18 03:38 Dose: 100 mls Diltiazem HCl 125 mg/Miscellaneous Medication 1 each/ Sodium Chloride 125 mls @ 5 mls/hr IVPB INF [facility] PRN Reason: Protocol Last Admin: 05/25/18 14:25 Dose: 125 mls Levothyroxine Sodium (Synthroid) 50 mcg PO 0600 [facility] Last Admin: 05/25/18 05:14 Dose: 50 mcg Methylprednisolone Sodium Succinate (Solu-Medrol) 40 mg IVP 0600,1800 [facility] Last Admin: 05/25/18 05:14 Dose: 40 mg Metoclopramide HCl (Reglan) 5 mg IVP Q4H PRN PRN Reason: Nausea Metoclopramide HCl (Reglan) 5 mg PO Q4H PRN PRN Reason: Nausea Mineral Oil/White Petrolatum (Eucerin Cream) 0 gm TOP BIDPRN PRN PRN Reason: Dry Skin Mometasone Furoate/Formoterol Fumar (Dulera 200 Mcg/5 Mcg Inhaler) 2 puff INH BID-RT [facility] Last Admin: 05/25/18 09:21 Dose: 2 puff Phenol (Chloraseptic [place] 180 Ml Bot) 0 ml PO PRN PRN PRN Reason: Sore Throat Senna (Senokot) 2 tab PO HSPRN PRN PRN Reason: Constipation Last Admin: 05/20/18 21:44 Dose: 2 tab Senna/Docusate Sodium (Senokot S) 1 tab PO DAILY [facility] Last Admin: 05/25/18 08:27 Dose: 1 tab Sodium Chloride ([place] Nasal [place] 0.65%) 0 ml EA NARE QIDPRN PRN PRN Reason: Nasal Congestion Sodium Chloride (Flush - Normal Saline) 10 ml IVF Q12HR [facility] Last Admin: 05/25/18 08:28 Dose: 10 ml Sodium Chloride (Flush - Normal Saline) 10 ml IVF PRN PRN PRN Reason: Saline Flush Zolpidem Tartrate (Ambien) 5 mg PO HSPRN PRN PRN Reason: .INSOMNIA Last Admin: 05/20/18 20:29 Dose: 5 mg
[2018-05-25] MEDS: Amiodarone 200 MG TAB PO SCH (20:46)
[2018-05-26] MEDS: cefTRIAXone\\ROCEPHIN 2 GM in Sodium Chloride 0.9% 100 ML IVPB SCH (03:09)
[2018-05-26 05:24] LABS: #Lymphocytes 1.4 thou/uL (1.20-3.40); #Monocytes 0.9 thou/uL (0.11-0.59); #Neutrophils 7.1 thou/uL (1.40-6.50); %Basophils 0.1 % (0.0-1.0); %Eosinophils 0.1 % (0.0-10.0); %Lymphocytes 14.6 % (21.0-51.0); %Monocytes 9.1 % (0.0-10.0); Hemoglobin 14.8 g/dL (12.0-16.0); Mean Corpuscular HGB CONC 32.8 g/dL (32.0-36.0); Mean Corpuscular Hemoglobin 30.5 pg (27.0-31.0); Mean Platelet Volume 8.2 fL (7.4-10.4); Platelet Count 309 thou/uL (130-400); RBC Distribution Width 13.7 % (11.5-14.5); Red Blood Cell (RBC) Count 4.86 mill/uL (4.20-5.40); White Blood Cell (WBC) Count 9.3 thou/uL (4.8-10.8)
[2018-05-26 05:49] LABS: Anion Gap 12 mmol/L (10-20); BUN (Urea Nitrogen) 28 mg/dL (9.8-20.1); Calc. Creatinine Clearance 70 mL/min (70-130); Calcium 8.9 mg/dL (7.8-10.44); Carbon Dioxide 25 mmol/L (23-31); Chloride 103 mmol/L (98-107); Estimated GFR-MDRD 85; Glucose 120 mg/dL (83-110); Potassium 3.5 mmol/L (3.5-5.1); Sodium 136 mmol/L (136-145)
[2018-05-26] MEDS: Levothyroxine Sodium 50 MCG TAB PO SCH (06:38)
[2018-05-26] MEDS: Mometasone/Formoterol 120 PUFF INHALER INH SCH ×2 (07:03→19:26)
--- NOTE | 2018-05-26 08:23 | PRG ---
DATE OF SERVICE: 05/26/2018 REFERRING PHYSICIAN: Dr. Modesta Barakat/Dr. Dk Ch SUBJECTIVE: Ms. Rojas is doing fair. Her pneumonia symptoms has been resolving over the weekend. After Fridays cardioversion and the subsequent recurrence of atrial fibrillation her flecainide was s topped and amiodarone was started. She continues in an atrial fibrillation, though requiring diltiaz em for rate control. Flecainide was stopped on Saturday and she got amiodarone loading that started on , last night at 9:00 p.m. OBJECTIVE DATA: VITAL SIGNS: Blood pressure 137/62, heart rate 80, respiration is 20, temperature 98.2 degrees [place] nheit. GENERAL: She is alert and oriented woman in no apparent distress. NECK: Supple. Jugular veins not distended. CHEST: Coarse without crackles. CARDIOVASCULAR: Heart sounds are irregularly irregular. S1, S2 variable. No murmur or gallop. ABDOMEN: Benign. Bowel sounds positive. EXTREMITIES: Lower extremities without edema, clubbing or cyanosis. DATABASE: The telemetry strips reviewed revealing continued atrial fibrillation. LABORATORY DATA: White count 9.3, hemoglobin 14.8, platelet count is 309. Sodium 136, potassium 3.5 , BUN is 28, creatinine was 0.68. Respiratory culture from 05/21/2018 shows yeast species. ASSESSMENT AND PLAN: Ms. Rojas is a pleasant 72-year-old woman with history of recent extensive lef t atrial ablation procedure. She had been loaded with Flecainide and dose was increased. Despite he r rhythm recurred even after cardioversion on Saturday. Now Flecainide is stopped and she just started her amiodarone last night. She is also on IV diltiazem for rate control. PLAN: At this point, continue p.o. amiodarone loading and taper later on. Wean off IV diltiazem as tolerated. After adequate rate control I will suggest to discharge and bring her back for cardiovers ion at a later date. Continue oral anticoagulation with apixaban.
[2018-05-26] MEDS: Doxycycline 100 MG CAP PO SCH ×2 (09:08→21:03)
[2018-05-26] MEDS: Amiodarone 200 MG TAB PO SCH ×3 (09:09→21:03)
[2018-05-26] MEDS: Apixaban 5 MG TAB PO SCH ×2 (09:09→21:03)
[2018-05-26] MEDS: Senokot S 8.6-50 MG TAB PO SCH (09:09)
[2018-05-26] MEDS: Aspirin 81 mg Enteric Coated Tablet PO SCH (09:09)
[2018-05-26] MEDS: Furosemide 20 MG TAB PO SCH (09:09)
[2018-05-26] MEDS: Famotidine 20 MG TAB PO SCH ×2 (09:09→21:03)
[2018-05-26] MEDS: Docusate 100 MG CAP PO SCH ×2 (09:10→21:01)
[2018-05-26] MEDS: Benzonatate 100 MG CAP PO SCH ×3 (09:26→21:03)
--- NOTE | 2018-05-26 12:11 | PDOC.CTH ---
Cardiology Progress Note - Subjective The pt seen and examined. No overnight events. No cardiac complaints. - Objective Vital Signs Temp Pulse Resp BP Pulse Ox 05/26/18 07:03 81 14 95 05/26/18 04:00 98.2 F 82 20 137/62 95 Admit Weight 135 lb 3.2 oz Weight 133 lb 9.6 oz 05/25/18 05/26/18 05/27/18 06:59 06:59 06:59 Intake Total 1940 1345 Output Total 3400 1700 Balance -1460 -355 - Physical Examination General/Neuro: alert & oriented x3 Neck: no JVD present Lungs: CTA (diminished at bases) Heart: other: (irregular) Abdomen: soft Extremities: other: (No edema) - Telemetry Telemetry Rhythm: AFib 90-110s. - Labs Result Diagrams: 05/26/18 04:33 05/26/18 04:33 Troponin/CKMB CK-MB (CK-2) 1.2 ng/mL (0-6.6) 05/20/18 15:08 Troponin I 0.034 ng/mL (< 0.028) H 05/20/18 20:48 - Assessment/Plan 1. Paroxysmal afib with RVR - S/p DCCV on 05/23/18 and failed-back in a-fib; Stopped Flecanide and start Amiodarone 400mg PO TID and Diltiazem 5mg/h; On Eliquis 5mg BID. Increase Diltiazem to 7.5mg/h; Amiodarone will be decreased to 400mg BID within 1 wk; cont. to monitor 2. PNA - On IV antibiotics, managed by PCP 3. HTN - stable; cont. to monitor 4. COPD - stable with RA 5. Hypothyroidism - managed by PCP 6. Hx of Colon Ca and resection in 2011 - 7. Small PFO by Echo in 01/2018 - cont. to monitor MAR reviewed * [id number] Score is 4 (age, female, CHF, and HTN) * Possible cardioversion as outpt by Dr Jaeger. Review of Systems - Review of Systems Constitutional: reports: no symptoms reported EENTM: reports: no symptoms reported Respiratory: reports: no symptoms reported Cardiac (ROS): reports: no symptoms reported ABD/GI: reports: no symptoms reported : reports: no symptoms reported Musculoskeletal: reports: no symptoms reported
--- NOTE | 2018-05-26 13:33 | PRG ---
DATE OF SERVICE: 05/26/2018 SUBJECTIVE: Ms. Rojas is doing okay, no complaints. PHYSICAL EXAMINATION: VITAL SIGNS: Her blood pressure 137/62, pulse 80, it is irregular. LUNGS: Clear. CARDIAC: Irregular, irregular. ABDOMEN: Soft, nontender. EXTREMITIES: No edema. ASSESSMENT: Recurrent atrial fibrillation. PLAN: The patient is being loaded with oral amiodarone. Consideration for cardioversion at a later time. The patient is also being seen by Ms. Tiesha Guido.
--- NOTE | 2018-05-26 15:07 | PDOC.PN ---
- Subjective Encounter Start Date: 05/26/18 Encounter Start Time: 15:04 Subjective: feels better.no new complaints. -: care discussed w daughter at bedside - Objective Resuscitation Status: Resuscitation Status DNR:Do Not Resuscitate MAR Reviewed: Yes Vital Signs & Weight: Vital Signs (12 hours) Temp Pulse Resp BP Pulse Ox 05/26/18 13:33 97.1 F L 86 18 122/61 93 L 05/26/18 09:06 97.6 F 82 18 128/59 L 96 05/26/18 07:03 81 14 95 05/26/18 04:00 98.2 F 82 20 137/62 95 Weight Admit Weight 135 lb 3.2 oz Weight 133 lb 9.6 oz I&O: 05/25/18 05/26/18 05/27/18 06:59 06:59 06:59 Intake Total 1940 1345 Output Total 3400 1700 Balance -1460 -355 Result Diagrams: 05/26/18 04:33 05/26/18 04:33 Additional Labs: Microbiology 05/21/18 10:15 Sputum Respiratory Culture - Final Yeast species 05/20/18 15:18 Urine clean catch Urine Culture - Final NO GROWTH AT 36 HOURS 05/20/18 15:08 Venous blood - Left Arm Blood Culture - Final NO GROWTH IN 5 DAYS 05/20/18 15:08 Venous blood - Left Arm Blood Culture - Final NO GROWTH IN 5 DAYS labs reviewed Phys Exam - Physical Examination Constitutional: NAD HEENT: PERRLA, moist MMs, sclera anicteric, oral pharynx no lesions Neck: no nodes, no JVD, supple, full ROM Respiratory: no wheezing, no rales, no rhonchi, clear to auscultation bilateral Cardiovascular: RRR, no significant murmur, no rub Gastrointestinal: soft, non-tender, no distention, positive bowel sounds Musculoskeletal: no edema, pulses present Neurological: non-focal, normal sensation, moves all 4 limbs Psychiatric: normal affect, A&O x 3 Skin: no rash Dx/Plan (1) Paroxysmal atrial fibrillation with RVR Code(s): I48.0 - PAROXYSMAL ATRIAL FIBRILLATION Status: Acute Comment: s/p DCCV and failed-back in a-fib (2) COPD exacerbation Code(s): J44.1 - CHRONIC OBSTRUCTIVE PULMONARY DISEASE W (ACUTE) EXACERBATION Status: Acute Comment: improving (3) Pneumonia Code(s): J18.9 - PNEUMONIA, UNSPECIFIED ORGANISM Status: Suspected Comment: on rocephin and doxy (4) Demand ischemia of myocardium Code(s): I24.8 - OTHER FORMS OF ACUTE ISCHEMIC HEART DISEASE Status: Acute (5) Diastolic CHF Code(s): I50.30 - UNSPECIFIED DIASTOLIC (CONGESTIVE) HEART FAILURE Status: Chronic Qualifiers: Heart failure chronicity: chronic Qualified Code(s): I50.32 - Chronic diastolic (congestive) heart failure Comment: BNP 700, was 1000 earlier in the year (6) H/O malignant neoplasm of colon Code(s): Z85.038 - PERSONAL HISTORY OF MALIGNANT NEOPLASM OF LARGE INTESTINE Status: Chronic Comment: prior h/o colectomy (7) HTN (hypertension) Code(s): I10 - ESSENTIAL (PRIMARY) HYPERTENSION Status: Chronic Qualifiers: Hypertension type: essential hypertension Qualified Code(s): I10 - Essential (primary) hypertension (8) Hypothyroidism Code(s): E03.9 - HYPOTHYROIDISM, UNSPECIFIED Status: Chronic Qualifiers: Hypothyroidism type: unspecified Qualified Code(s): E03.9 - Hypothyroidism , unspecified (9) Moderate mitral regurgitation by prior echocardiogram Code(s): I34.0 - NONRHEUMATIC MITRAL (VALVE) INSUFFICIENCY Status: Chronic (10) PFO (patent foramen ovale) Code(s): Q21.1 - ATRIAL SEPTAL DEFECT Status: Chronic - Plan plan discussed w/ family, PT/OT, out of bed/ambulate, DVT proph w/SCDs started on amiodarone Po last night. -: started on cardiazem drip for RVR with a-fib.HR better controlled -: cont rest of the meds as below. hemodynamically stable -: Cardioversion as an outpt. -: chirag DC home tomorrow if HR under control. fully anticoagulated by Eliqui * . Review of Systems - Review of Systems Constitutional: negative: fever, chills, sweats, weakness, malaise, other ENT: negative: Ear Pain, Ear Discharge, Nose Pain, Nose Discharge, Nose Congestion, Mouth Pain, Mouth Swelling, Throat Pain, Throat Swelling, Other Respiratory: negative: Cough, Dry, Shortness of Breath, Hemoptysis, SOB with Excertion, Pleuritic Pain, Sputum, Wheezing Cardiovascular: negative: chest pain, palpitations, orthopnea, paroxysmal nocturnal dyspnea, edema, light headedness, other Gastrointestinal: negative: Nausea, Vomiting, Abdominal Pain, Diarrhea, Constipation, Melena, Hematochezia, Other Genitourinary: negative: Dysuria, Frequency, Incontinence, Hematuria, Retention , Other Musculoskeletal: negative: Neck Pain, Shoulder Pain, Arm Pain, Back Pain, Hand Pain, Leg Pain, Foot Pain, Other Neurological: negative: Weakness, Numbness, Incoordination, Change in Speech, Confusion, Seizures, Other - Medications/Allergies Allergies/Adverse Reactions: Allergies Allergy/AdvReac Type Severity Reaction Status Date / Time codeine Allergy Verified 04/24/18 15:19 Medications: Current Medications Acetaminophen (Tylenol) 650 mg PO Q4H PRN PRN Reason: Headache/Fever or Pain Last Admin: 05/25/18 08:28 Dose: 650 mg Acetaminophen (Tylenol) 650 mg ID Q4H PRN PRN Reason: Headache/Fever or Pain Al Hydroxide/Mg Hydroxide (Maalox) 15 ml PO Q4H PRN PRN Reason: Heartburn or Indigestion Albuterol/Ipratropium (Duoneb) 3 ml NEB [id number] PRN PRN Reason: SOB &/or Wheezing Albuterol/Ipratropium (Duoneb) 3 ml NEB [id number] [facility] Last Admin: 05/26/18 11:47 Dose: Not Given Amiodarone HCl (Cordarone) 400 mg PO TID [facility] Stop: 06/01/18 10:00 Last Admin: 05/26/18 09:09 Dose: 400 mg Amiodarone HCl (Cordarone) 400 mg PO BID [facility] Apixaban (Eliquis) 5 mg PO BID [facility] Last Admin: 05/26/18 09:09 Dose: 5 mg Artificial Tears (Tears Naturale) 0 drop EA EYE PRN PRN PRN Reason: Dry Eyes Aspirin (Ecotrin) 81 mg PO DAILY [facility] Last Admin: 05/26/18 09:09 Dose: 81 mg Benzonatate (Tessalon) 100 mg PO TID [facility] Last Admin: 05/26/18 09:26 Dose: 100 mg Bisacodyl (Dulcolax) 10 mg PO DAILYPRN PRN PRN Reason: Constipation Last Admin: 05/21/18 21:50 Dose: 10 mg Docusate Sodium (Colace) 100 mg PO BID [facility] Last Admin: 05/26/18 09:10 Dose: Not Given Doxycycline Hyclate (Vibramycin) 100 mg PO BID [facility] Stop: 05/26/18 21:01 Last Admin: 05/26/18 09:08 Dose: 100 mg Famotidine (Pepcid) 20 mg PO BID [facility] Last Admin: 05/26/18 09:09 Dose: 20 mg Furosemide (Lasix) 20 mg PO DAILY [facility] Last Admin: 05/26/18 09:09 Dose: 20 mg Guaifenesin (Robitussin Sf) 200 mg PO Q4H PRN PRN Reason: Cough Last Admin: 05/25/18 12:33 Dose: 200 mg Hydralazine HCl (Apresoline) 10 mg SLOW IVP Q4H PRN PRN Reason: Systolic BP > 180 Ceftriaxone Sodium 2 gm/ (Sodium Chloride) 100 mls @ 200 mls/hr IVPB Q24HR@ 0300 [facility] Last Admin: 05/26/18 03:09 Dose: 100 mls Diltiazem HCl 125 mg/Miscellaneous Medication 1 each/ Sodium Chloride 125 mls @ 7.5 mls/hr IVPB INF [facility] PRN Reason: Protocol Levothyroxine Sodium (Synthroid) 50 mcg PO 0600 [facility] Last Admin: 05/26/18 06:38 Dose: 50 mcg Methylprednisolone Sodium Succinate (Solu-Medrol) 40 mg IVP 0600,1800 [facility] Last Admin: 05/26/18 06:38 Dose: 40 mg Metoclopramide HCl (Reglan) 5 mg IVP Q4H PRN PRN Reason: Nausea Metoclopramide HCl (Reglan) 5 mg PO Q4H PRN PRN Reason: Nausea Mineral Oil/White Petrolatum (Eucerin Cream) 0 gm TOP BIDPRN PRN PRN Reason: Dry Skin Mometasone Furoate/Formoterol Fumar (Dulera 200 Mcg/5 Mcg Inhaler) 2 puff INH BID-RT [facility] Last Admin: 05/26/18 07:03 Dose: 2 puff Phenol (Chloraseptic [place] 180 Ml Bot) 0 ml PO PRN PRN PRN Reason: Sore Throat Senna (Senokot) 2 tab PO HSPRN PRN PRN Reason: Constipation Last Admin: 05/20/18 21:44 Dose: 2 tab Senna/Docusate Sodium (Senokot S) 1 tab PO DAILY [facility] Last Admin: 05/26/18 09:09 Dose: 1 tab Sodium Chloride ([place] Nasal [place] 0.65%) 0 ml EA NARE QIDPRN PRN PRN Reason: Nasal Congestion Sodium Chloride (Flush - Normal Saline) 10 ml IVF Q12HR [facility] Last Admin: 05/26/18 09:12 Dose: Not Given Sodium Chloride (Flush - Normal Saline) 10 ml IVF PRN PRN PRN Reason: Saline Flush Zolpidem Tartrate (Ambien) 5 mg PO HSPRN PRN PRN Reason: .INSOMNIA Last Admin: 05/20/18 20:29 Dose: 5 mg
[2018-05-26] MEDS: Diltiazem HCl 125 MG, Admixture Fee 1 EACH in Sodium Chloride 0.9% 100 ML IVPB SCH (15:17)
--- NOTE | 2018-05-26 20:02 | EKG ---
Test Reason : Blood Pressure : / mmHG Vent. Rate : 100 BPM Atrial Rate : 357 BPM P-R Int : 000 ms QRS Dur : 078 ms QT Int : 374 ms P-R-T Axes : 000 011 174 degrees QTc Int : 482 ms Atrial flutter with variable A-V block Prolonged QT Abnormal ECG When compared with ECG of 24-MAY-2018 09:02, (Unconfirmed) No significant change was found Confirmed by DR. Namrata HARRIS ([id number]) on 05/26/2018 8:01:53 PM Referred By: SHERIN Confirmed By:DR. Namrata HARRIS
[2018-05-26] MEDS: Acetaminophen 325 MG TAB PO PRN (23:39)
[2018-05-27] MEDS: cefTRIAXone\\ROCEPHIN 2 GM in Sodium Chloride 0.9% 100 ML IVPB SCH (02:11)
[2018-05-27] MEDS: Levothyroxine Sodium 50 MCG TAB PO SCH (05:43)
[2018-05-27] MEDS: Mometasone/Formoterol 120 PUFF INHALER INH SCH ×2 (06:40→19:19)
[2018-05-27] MEDS: Apixaban 5 MG TAB PO SCH ×2 (09:05→20:23)
[2018-05-27] MEDS: Famotidine 20 MG TAB PO SCH ×2 (09:05→20:24)
[2018-05-27] MEDS: Diltiazem HCl 125 MG, Admixture Fee 1 EACH in Sodium Chloride 0.9% 100 ML IVPB SCH (09:05)
[2018-05-27] MEDS: Aspirin 81 mg Enteric Coated Tablet PO SCH (09:05)
[2018-05-27] MEDS: Amiodarone 200 MG TAB PO SCH ×5 (09:05→20:30)
[2018-05-27] MEDS: Docusate 100 MG CAP PO SCH ×2 (09:09→20:24)
[2018-05-27] MEDS: Benzonatate 100 MG CAP PO SCH ×3 (09:09→20:24)
[2018-05-27] MEDS: Furosemide 20 MG TAB PO SCH (09:10)
[2018-05-27] MEDS: Senokot S 8.6-50 MG TAB PO SCH (09:10)
[2018-05-27] MEDS ORDERED: Diltiazem HCl 125 MG, Admixture Fee 1 EACH in Sodium Chloride 0.9% 100 ML IVPB SCH (09:54)
--- NOTE | 2018-05-27 10:05 | PRG ---
DATE OF SERVICE: 05/27/2018 SUBJECTIVE: Ms. Rojas is feeling well, no complaints. She is alert and oriented. PHYSICAL EXAMINATION: VITAL SIGNS: Her blood pressure 130/60, pulse 80, it is irregular. LUNGS: Clear. CARDIAC: Irregular, irregular. ABDOMEN: Soft, nontender. EXTREMITIES: No edema. ASSESSMENT: Atrial fibrillation, recurrent. PLAN: 1. Increase amiodarone. 2. Try to wean off the Cardizem. 3. Dr. Jaeger's note indicates that he recommended loading her with amiodarone and bringing her back a s an outpatient for cardioversion.
[2018-05-27] MEDS: Amoxicillin/Potassium Clav 875 MG TAB PO SCH ×2 (13:29→20:23)
--- NOTE | 2018-05-27 14:03 | PDOC.PN ---
- Subjective Encounter Start Date: 05/27/18 Encounter Start Time: 14:02 Subjective: feels well. no new complaints.eager to go home -: no CP/palpitation/SOB - Objective Resuscitation Status: Resuscitation Status DNR:Do Not Resuscitate MAR Reviewed: Yes Vital Signs & Weight: Vital Signs (12 hours) Temp Pulse Resp BP Pulse Ox 05/27/18 08:00 98.3 F 76 16 130/63 95 05/27/18 06:40 69 12 95 05/27/18 03:27 97.7 F 75 112/72 96 Weight Admit Weight 135 lb 3.2 oz Weight 130 lb 14.4 oz I&O: 05/26/18 05/27/18 05/28/18 06:59 06:59 06:59 Intake Total 1345 679 Output Total 1700 1000 Balance -355 -321 Result Diagrams: 05/26/18 04:33 05/26/18 04:33 Additional Labs: Microbiology 05/21/18 10:15 Sputum Respiratory Culture - Final Yeast species 05/20/18 15:18 Urine clean catch Urine Culture - Final NO GROWTH AT 36 HOURS 05/20/18 15:08 Venous blood - Left Arm Blood Culture - Final NO GROWTH IN 5 DAYS 05/20/18 15:08 Venous blood - Left Arm Blood Culture - Final NO GROWTH IN 5 DAYS labs reviewed Phys Exam - Physical Examination Constitutional: NAD HEENT: PERRLA, moist MMs, sclera anicteric, oral pharynx no lesions Neck: no nodes, no JVD, supple, full ROM Respiratory: no wheezing, no rales, no rhonchi, clear to auscultation bilateral Cardiovascular: no significant murmur, irregular Gastrointestinal: soft, non-tender, no distention, positive bowel sounds Musculoskeletal: no edema, pulses present Neurological: non-focal, normal sensation, moves all 4 limbs Psychiatric: normal affect, A&O x 3 Skin: no rash Dx/Plan (1) Paroxysmal atrial fibrillation with RVR Code(s): I48.0 - PAROXYSMAL ATRIAL FIBRILLATION Status: Acute Comment: s/p DCCV and failed-back in a-fib (2) COPD exacerbation Code(s): J44.1 - CHRONIC OBSTRUCTIVE PULMONARY DISEASE W (ACUTE) EXACERBATION Status: Acute Comment: improving (3) Pneumonia Code(s): J18.9 - PNEUMONIA, UNSPECIFIED ORGANISM Status: Suspected Comment: on rocephin and doxy (4) Demand ischemia of myocardium Code(s): I24.8 - OTHER FORMS OF ACUTE ISCHEMIC HEART DISEASE Status: Acute Comment: Change to PO ABx (5) Diastolic CHF Code(s): I50.30 - UNSPECIFIED DIASTOLIC (CONGESTIVE) HEART FAILURE Status: Chronic Qualifiers: Heart failure chronicity: chronic Qualified Code(s): I50.32 - Chronic diastolic (congestive) heart failure Comment: BNP 700, was 1000 earlier in the year (6) H/O malignant neoplasm of colon Code(s): Z85.038 - PERSONAL HISTORY OF MALIGNANT NEOPLASM OF LARGE INTESTINE Status: Chronic Comment: prior h/o colectomy (7) HTN (hypertension) Code(s): I10 - ESSENTIAL (PRIMARY) HYPERTENSION Status: Chronic Qualifiers: Hypertension type: essential hypertension Qualified Code(s): I10 - Essential (primary) hypertension (8) Hypothyroidism Code(s): E03.9 - HYPOTHYROIDISM, UNSPECIFIED Status: Chronic Qualifiers: Hypothyroidism type: unspecified Qualified Code(s): E03.9 - Hypothyroidism , unspecified (9) Moderate mitral regurgitation by prior echocardiogram Code(s): I34.0 - NONRHEUMATIC MITRAL (VALVE) INSUFFICIENCY Status: Chronic (10) PFO (patent foramen ovale) Code(s): Q21.1 - ATRIAL SEPTAL DEFECT Status: Chronic - Plan PT/OT, DVT proph w/lovenox, DVT proph w/SCDs HR controlled on PO amiodarone and cardiazem drip.discussed w cardiology -: Taper cardiazem drip & hopefuly home tomorrow if HR stable -: cont eliquis for secd stroke prophylaxis -: cardioversion as an Outpt.hemodynamically stable -: change IV steroids to PO.change IV Abx to Po * . Review of Systems - Review of Systems Constitutional: negative: fever, chills, sweats, weakness, malaise, other ENT: negative: Ear Pain, Ear Discharge, Nose Pain, Nose Discharge, Nose Congestion, Mouth Pain, Mouth Swelling, Throat Pain, Throat Swelling, Other Respiratory: negative: Cough, Dry, Shortness of Breath, Hemoptysis, SOB with Excertion, Pleuritic Pain, Sputum, Wheezing Cardiovascular: negative: chest pain, palpitations, orthopnea, paroxysmal nocturnal dyspnea, edema, light headedness, other Gastrointestinal: negative: Nausea, Vomiting, Abdominal Pain, Diarrhea, Constipation, Melena, Hematochezia, Other Genitourinary: negative: Dysuria, Frequency, Incontinence, Hematuria, Retention , Other Musculoskeletal: negative: Neck Pain, Shoulder Pain, Arm Pain, Back Pain, Hand Pain, Leg Pain, Foot Pain, Other Skin: negative: Rash, Lesions, [place], Bruising, Other Neurological: negative: Weakness, Numbness, Incoordination, Change in Speech, Confusion, Seizures, Other - Medications/Allergies Allergies/Adverse Reactions: Allergies Allergy/AdvReac Type Severity Reaction Status Date / Time codeine Allergy Verified 04/24/18 15:19 Medications: Current Medications Acetaminophen (Tylenol) 650 mg PO Q4H PRN PRN Reason: Headache/Fever or Pain Last Admin: 05/26/18 23:39 Dose: 650 mg Acetaminophen (Tylenol) 650 mg TN Q4H PRN PRN Reason: Headache/Fever or Pain Al Hydroxide/Mg Hydroxide (Maalox) 15 ml PO Q4H PRN PRN Reason: Heartburn or Indigestion Albuterol/Ipratropium (Duoneb) 3 ml NEB [id number] PRN PRN Reason: SOB &/or Wheezing Albuterol/Ipratropium (Duoneb) 3 ml NEB [id number] [facility] Last Admin: 05/27/18 12:29 Dose: Not Given Amiodarone HCl (Cordarone) 400 mg PO TID [facility] Stop: 06/01/18 10:00 Last Admin: 05/27/18 09:05 Dose: 400 mg Amiodarone HCl (Cordarone) 400 mg PO TID [facility] Amoxicillin/Clavulanate Potassium (Augmentin) 875 mg PO Q12HR [facility] Last Admin: 05/27/18 13:29 Dose: 875 mg Apixaban (Eliquis) 5 mg PO BID [facility] Last Admin: 05/27/18 09:05 Dose: 5 mg Artificial Tears (Tears Naturale) 0 drop EA EYE PRN PRN PRN Reason: Dry Eyes Aspirin (Ecotrin) 81 mg PO DAILY [facility] Last Admin: 05/27/18 09:05 Dose: 81 mg Benzonatate (Tessalon) 100 mg PO TID [facility] Last Admin: 05/27/18 09:09 Dose: 100 mg Bisacodyl (Dulcolax) 10 mg PO DAILYPRN PRN PRN Reason: Constipation Last Admin: 05/21/18 21:50 Dose: 10 mg Docusate Sodium (Colace) 100 mg PO BID [facility] Last Admin: 05/27/18 09:09 Dose: Not Given Famotidine (Pepcid) 20 mg PO BID [facility] Last Admin: 05/27/18 09:05 Dose: 20 mg Furosemide (Lasix) 20 mg PO DAILY [facility] Last Admin: 05/27/18 09:10 Dose: 20 mg Guaifenesin (Robitussin Sf) 200 mg PO Q4H PRN PRN Reason: Cough Last Admin: 05/25/18 12:33 Dose: 200 mg Hydralazine HCl (Apresoline) 10 mg SLOW IVP Q4H PRN PRN Reason: Systolic BP > 180 Diltiazem HCl 125 mg/Miscellaneous Medication 1 each/ Sodium Chloride 125 mls @ 4 mls/hr IVPB INF [facility] PRN Reason: Protocol Levothyroxine Sodium (Synthroid) 50 mcg PO 0600 [facility] Last Admin: 05/27/18 05:43 Dose: 50 mcg Metoclopramide HCl (Reglan) 5 mg IVP Q4H PRN PRN Reason: Nausea Metoclopramide HCl (Reglan) 5 mg PO Q4H PRN PRN Reason: Nausea Mineral Oil/White Petrolatum (Eucerin Cream) 0 gm TOP BIDPRN PRN PRN Reason: Dry Skin Mometasone Furoate/Formoterol Fumar (Dulera 200 Mcg/5 Mcg Inhaler) 2 puff INH BID-RT [facility] Last Admin: 05/27/18 06:40 Dose: 2 puff Phenol (Chloraseptic [place] 180 Ml Bot) 0 ml PO PRN PRN PRN Reason: Sore Throat Prednisone (Prednisone) 40 mg PO QAM-WM [facility] Senna (Senokot) 2 tab PO HSPRN PRN PRN Reason: Constipation Last Admin: 05/20/18 21:44 Dose: 2 tab Senna/Docusate Sodium (Senokot S) 1 tab PO DAILY [facility] Last Admin: 05/27/18 09:10 Dose: Not Given Sodium Chloride ([place] Nasal [place] 0.65%) 0 ml EA NARE QIDPRN PRN PRN Reason: Nasal Congestion Sodium Chloride (Flush - Normal Saline) 10 ml IVF Q12HR [facility] Last Admin: 05/27/18 09:10 Dose: 10 ml Sodium Chloride (Flush - Normal Saline) 10 ml IVF PRN PRN PRN Reason: Saline Flush Last Admin: 05/27/18 05:44 Dose: 10 ml Zolpidem Tartrate (Ambien) 5 mg PO HSPRN PRN PRN Reason: .INSOMNIA Last Admin: 05/20/18 20:29 Dose: 5 mg
--- NOTE | 2018-05-27 17:17 | EKG ---
Test Reason : Blood Pressure : / mmHG Vent. Rate : 071 BPM Atrial Rate : 046 BPM P-R Int : 000 ms QRS Dur : 088 ms QT Int : 424 ms P-R-T Axes : 000 -03 172 degrees QTc Int : 460 ms Atrial fibrillation Abnormal ECG When compared with ECG of 26-MAY-2018 12:56, Atrial fibrillation has replaced Atrial flutter ST less depressed in Anterior leads Confirmed by DR. Namrata HARRIS ([id number]) on 05/27/2018 5:17:09 PM Referred By: SHERIN Confirmed By:DR. Namrata HARRIS
[2018-05-27] MEDS: Acetaminophen 325 MG TAB PO PRN (23:06)
[2018-05-27] MEDS: Diabetic Tussin 200 MG/10 ML UDCUP PO PRN (23:08)
--- NOTE | 2018-05-28 03:23 | PRG ---
DATE OF SERVICE: 05/27/2018 ELECTROPHYSIOLOGY FOLLOWUP NOTE REFERRING PHYSICIAN: Modesta Barakat M.D. SUBJECTIVE: Ms. Rojas seems to be doing well. Today, her rates are better controlled on the contin ued amiodarone and diltiazem combination. OBJECTIVE DATA: VITAL SIGNS: Blood pressure is 130/63, heart rate 76, respiration 16, temperature 98.3 degrees Fahre nheit. GENERAL: This is an alert and oriented elderly woman in no apparent distress. NECK: Supple. Jugular vein not distended. CHEST: Coarse without crackles. CARDIAC: Heart sounds are irregularly irregular. S1, S2 is variable. No murmur or gallop. ABDOMEN: Benign. Bowel sounds positive. EXTREMITIES: Lower extremities without edema, clubbing, or cyanosis. DATABASE: Telemetry strips reveal coarse atrial fibrillation alternating with more organized atrial flutter, but with better rate control. If ventricular rates are 50-90 beats per minute, no significa nt bradyarrhythmias are seen. The QTC yesterday was 482, QTC difficult to measure due to the atrial flutter, but does not appear to be severely prolonged. LABORATORY DATA: None new. ASSESSMENT: Ms. Rojas is a pleasant 72-year-old woman with history of atrial arrhythmias, a fairly high symptomatic with rapid rates. She underwent left atrial ablation procedure in 02/2018, but had recurrence of atrial arrhythmias. She has received flecainide, but that was not sufficient to keep h er in sinus rhythm. cardioversions in 100 mg twice a day flecainide dose. Eventually, she was transferred to amiodarone. She is still receiving rate control support with diltiazem drip as well. PLAN: At this point, continue amiodarone taper 400 mg twice a day. Monitor for proarrhythmias adequately controlled as she achieved taper of diltiazem. Continue oral anticoagulation. I will fo llow up in the office requested in 4-6 weeks.
[2018-05-28] MEDS: Levothyroxine Sodium 50 MCG TAB PO SCH (05:15)
[2018-05-28 05:36] LABS: Hemoglobin 14.7 g/dL (12.0-16.0); Platelet Count 344 thou/uL (130-400)
[2018-05-28] MEDS: Mometasone/Formoterol 120 PUFF INHALER INH SCH (06:20)
[2018-05-28] MEDS ORDERED: predniSONE 20 MG TAB PO SCH (08:00)
[2018-05-28] MEDS: Amiodarone 200 MG TAB PO SCH ×2 (09:54→15:02)
[2018-05-28] MEDS: Aspirin 81 mg Enteric Coated Tablet PO SCH (09:54)
[2018-05-28] MEDS: Famotidine 20 MG TAB PO SCH (09:55)
[2018-05-28] MEDS: Apixaban 5 MG TAB PO SCH (09:55)
[2018-05-28] MEDS: Amoxicillin/Potassium Clav 875 MG TAB PO SCH (09:55)
[2018-05-28] MEDS: Furosemide 20 MG TAB PO SCH (09:55)
[2018-05-28] MEDS: Benzonatate 100 MG CAP PO SCH ×2 (10:08→15:01)
[2018-05-28] MEDS: Senokot S 8.6-50 MG TAB PO SCH (10:35)
[2018-05-28] MEDS: Docusate 100 MG CAP PO SCH (10:35)
--- NOTE | 2018-05-28 11:10 | PDOC.PN ---
- Subjective Encounter Start Date: 05/28/18 Encounter Start Time: 11:08 Subjective: no new complaints, some cough.no chest pain/palpitations - Objective Resuscitation Status: Resuscitation Status DNR:Do Not Resuscitate MAR Reviewed: Yes Vital Signs & Weight: Vital Signs (12 hours) Temp Pulse Resp BP Pulse Ox 05/28/18 07:47 97.6 F 108 H 16 152/72 H 97 05/28/18 06:20 85 16 96 05/28/18 03:37 98.4 F 64 18 131/63 96 Weight Admit Weight 135 lb 3.2 oz Weight 134 lb 1.6 oz I&O: 05/27/18 05/28/18 05/29/18 06:59 06:59 06:59 Intake Total 679 521.5 Output Total 1000 1050 Balance -321 -528.5 Result Diagrams: 05/28/18 04:49 05/28/18 04:49 Additional Labs: Microbiology 05/21/18 10:15 Sputum Respiratory Culture - Final Yeast species 05/20/18 15:18 Urine clean catch Urine Culture - Final NO GROWTH AT 36 HOURS 05/20/18 15:08 Venous blood - Left Arm Blood Culture - Final NO GROWTH IN 5 DAYS 05/20/18 15:08 Venous blood - Left Arm Blood Culture - Final NO GROWTH IN 5 DAYS labs reviewed Phys Exam - Physical Examination Constitutional: NAD HEENT: PERRLA, moist MMs, sclera anicteric, oral pharynx no lesions Neck: no nodes, no JVD, supple, full ROM Respiratory: no wheezing, no rales, no rhonchi, clear to auscultation bilateral Cardiovascular: RRR, no significant murmur, no rub Gastrointestinal: soft, non-tender, no distention, positive bowel sounds Musculoskeletal: no edema, pulses present Neurological: non-focal, normal sensation, moves all 4 limbs Psychiatric: normal affect, A&O x 3 Skin: no rash Dx/Plan (1) Paroxysmal atrial fibrillation with RVR Code(s): I48.0 - PAROXYSMAL ATRIAL FIBRILLATION Status: Acute Comment: s/p DCCV and failed-back in a-fib (2) COPD exacerbation Code(s): J44.1 - CHRONIC OBSTRUCTIVE PULMONARY DISEASE W (ACUTE) EXACERBATION Status: Acute Comment: improving (3) Pneumonia Code(s): J18.9 - PNEUMONIA, UNSPECIFIED ORGANISM Status: Suspected Comment: on rocephin and doxy (4) Demand ischemia of myocardium Code(s): I24.8 - OTHER FORMS OF ACUTE ISCHEMIC HEART DISEASE Status: Acute Comment: Change to PO ABx (5) Diastolic CHF Code(s): I50.30 - UNSPECIFIED DIASTOLIC (CONGESTIVE) HEART FAILURE Status: Chronic Qualifiers: Heart failure chronicity: chronic Qualified Code(s): I50.32 - Chronic diastolic (congestive) heart failure Comment: BNP 700, was 1000 earlier in the year (6) H/O malignant neoplasm of colon Code(s): Z85.038 - PERSONAL HISTORY OF MALIGNANT NEOPLASM OF LARGE INTESTINE Status: Chronic Comment: prior h/o colectomy (7) HTN (hypertension) Code(s): I10 - ESSENTIAL (PRIMARY) HYPERTENSION Status: Chronic Qualifiers: Hypertension type: essential hypertension Qualified Code(s): I10 - Essential (primary) hypertension (8) Hypothyroidism Code(s): E03.9 - HYPOTHYROIDISM, UNSPECIFIED Status: Chronic Qualifiers: Hypothyroidism type: unspecified Qualified Code(s): E03.9 - Hypothyroidism , unspecified (9) Moderate mitral regurgitation by prior echocardiogram Code(s): I34.0 - NONRHEUMATIC MITRAL (VALVE) INSUFFICIENCY Status: Chronic (10) PFO (patent foramen ovale) Code(s): Q21.1 - ATRIAL SEPTAL DEFECT Status: Chronic - Plan continue antibiotics, PT/OT, respiratory therapy, incentive spirometry, out of bed/ambulate, DVT proph w/SCDs HR controlled.cont amiodarone. still on cardiazem drip -: May DC home on PO.will defer to cardiology/ -: cont PO ABx,PO steroids,tessalon etc . -: hemodynamically stable -: ablation as an outpt. * . Review of Systems - Review of Systems Constitutional: negative: fever, chills, sweats, weakness, malaise, other ENT: negative: Ear Pain, Ear Discharge, Nose Pain, Nose Discharge, Nose Congestion, Mouth Pain, Mouth Swelling, Throat Pain, Throat Swelling, Other Respiratory: negative: Cough, Dry, Shortness of Breath, Hemoptysis, SOB with Excertion, Pleuritic Pain, Sputum, Wheezing Cardiovascular: negative: chest pain, palpitations, orthopnea, paroxysmal nocturnal dyspnea, edema, light headedness, other Gastrointestinal: negative: Nausea, Vomiting, Abdominal Pain, Diarrhea, Constipation, Melena, Hematochezia, Other Genitourinary: negative: Dysuria, Frequency, Incontinence, Hematuria, Retention , Other Musculoskeletal: negative: Neck Pain, Shoulder Pain, Arm Pain, Back Pain, Hand Pain, Leg Pain, Foot Pain, Other Neurological: negative: Weakness, Numbness, Incoordination, Change in Speech, Confusion, Seizures, Other - Medications/Allergies Allergies/Adverse Reactions: Allergies Allergy/AdvReac Type Severity Reaction Status Date / Time codeine Allergy Verified 04/24/18 15:19 Medications: Current Medications Acetaminophen (Tylenol) 650 mg PO Q4H PRN PRN Reason: Headache/Fever or Pain Last Admin: 05/27/18 23:06 Dose: 650 mg Acetaminophen (Tylenol) 650 mg SC Q4H PRN PRN Reason: Headache/Fever or Pain Al Hydroxide/Mg Hydroxide (Maalox) 15 ml PO Q4H PRN PRN Reason: Heartburn or Indigestion Albuterol/Ipratropium (Duoneb) 3 ml NEB [id number] PRN PRN Reason: SOB &/or Wheezing Albuterol/Ipratropium (Duoneb) 3 ml NEB [id number] [facility] Last Admin: 05/28/18 06:44 Dose: Not Given Amiodarone HCl (Cordarone) 400 mg PO TID [facility] Last Admin: 05/28/18 09:54 Dose: 400 mg Amoxicillin/Clavulanate Potassium (Augmentin) 875 mg PO Q12HR [facility] Last Admin: 05/28/18 09:55 Dose: 875 mg Apixaban (Eliquis) 5 mg PO BID [facility] Last Admin: 05/28/18 09:55 Dose: 5 mg Artificial Tears (Tears Naturale) 0 drop EA EYE PRN PRN PRN Reason: Dry Eyes Aspirin (Ecotrin) 81 mg PO DAILY [facility] Last Admin: 05/28/18 09:54 Dose: 81 mg Benzonatate (Tessalon) 100 mg PO TID [facility] Last Admin: 05/28/18 10:08 Dose: 100 mg Bisacodyl (Dulcolax) 10 mg PO DAILYPRN PRN PRN Reason: Constipation Last Admin: 05/21/18 21:50 Dose: 10 mg Docusate Sodium (Colace) 100 mg PO BID [facility] Last Admin: 05/28/18 10:35 Dose: Not Given Famotidine (Pepcid) 20 mg PO BID [facility] Last Admin: 05/28/18 09:55 Dose: 20 mg Furosemide (Lasix) 20 mg PO DAILY [facility] Last Admin: 05/28/18 09:55 Dose: 20 mg Guaifenesin (Robitussin Sf) 200 mg PO Q4H PRN PRN Reason: Cough Last Admin: 05/27/18 23:08 Dose: 200 mg Hydralazine HCl (Apresoline) 10 mg SLOW IVP Q4H PRN PRN Reason: Systolic BP > 180 Levothyroxine Sodium (Synthroid) 50 mcg PO 0600 [facility] Last Admin: 05/28/18 05:15 Dose: 50 mcg Metoclopramide HCl (Reglan) 5 mg IVP Q4H PRN PRN Reason: Nausea Metoclopramide HCl (Reglan) 5 mg PO Q4H PRN PRN Reason: Nausea Mineral Oil/White Petrolatum (Eucerin Cream) 0 gm TOP BIDPRN PRN PRN Reason: Dry Skin Mometasone Furoate/Formoterol Fumar (Dulera 200 Mcg/5 Mcg Inhaler) 2 puff INH BID-RT [facility] Last Admin: 05/28/18 06:20 Dose: 2 puff Phenol (Chloraseptic [place] 180 Ml Bot) 0 ml PO PRN PRN PRN Reason: Sore Throat Prednisone (Prednisone) 40 mg PO QAM-WM [facility] Last Admin: 05/28/18 09:55 Dose: 40 mg Senna (Senokot) 2 tab PO HSPRN PRN PRN Reason: Constipation Last Admin: 05/20/18 21:44 Dose: 2 tab Senna/Docusate Sodium (Senokot S) 1 tab PO DAILY [facility] Last Admin: 05/28/18 10:35 Dose: Not Given Sodium Chloride ([place] Nasal [place] 0.65%) 0 ml EA NARE QIDPRN PRN PRN Reason: Nasal Congestion Sodium Chloride (Flush - Normal Saline) 10 ml IVF Q12HR [facility] Last Admin: 05/28/18 10:35 Dose: Not Given Sodium Chloride (Flush - Normal Saline) 10 ml IVF PRN PRN PRN Reason: Saline Flush Last Admin: 05/27/18 05:44 Dose: 10 ml Zolpidem Tartrate (Ambien) 5 mg PO HSPRN PRN PRN Reason: .INSOMNIA Last Admin: 05/20/18 20:29 Dose: 5 mg
[2018-05-28 15:26] VITALS: BP 126/95; TEMP 97.5
[2018-06-01] MEDS ORDERED: Amiodarone 200 MG TAB PO SCH (21:00)
== END 2018-05-28 15:27 | disposition home or self-care (01) | DRG 308 ==
LOC: ERS 13:13 → 2NO 17:48
PROVIDERS: ADMIT Internal Medicine; ATTEND Internal Medicine
PROC: 5A2204Z Restoration of Cardiac Rhythm, Single (ICD-10-PCS; principal; 2018-05-23)
DX: I48.0 Paroxysmal atrial fibrillation (principal); J18.9 Pneumonia, unspecified organism; J44.0 Chronic obstructive pulmonary disease with (acute) lower respiratory infection; N39.0 Urinary tract infection, site not specified; J44.1 Chronic obstructive pulmonary disease with (acute) exacerbation; Q21.1 Atrial septal defect; I50.30 Unspecified diastolic (congestive) heart failure; I24.8 Other forms of acute ischemic heart disease; I48.1 Persistent atrial fibrillation; Z79.01 Long term (current) use of anticoagulants; E03.9 Hypothyroidism, unspecified; Z85.038 Personal history of other malignant neoplasm of large intestine; I11.0 Hypertensive heart disease with heart failure; K59.00 Constipation, unspecified; B96.20 Unspecified Escherichia coli [E. coli] as the cause of diseases classified elsewhere; Z92.21 Personal history of antineoplastic chemotherapy; K21.9 Gastro-esophageal reflux disease without esophagitis; Z88.5 Allergy status to narcotic agent; Z87.891 Personal history of nicotine dependence; I34.0 Nonrheumatic mitral (valve) insufficiency
CPT/HCPCS: 36415; 80048; 80053; 81003; 82553; 82565; 83880; 84443; 84484; 85014; 85018; 85025; 85049; 87040; 87070; 87086; 87205; 92960; 93005; 93010; 94640; 96361; 96365; A4216; G8978-GP-CM; G8979-GP-CM; G8980-GP-CM; G8987-GO-CH; G8988-GO-CH; G8989-GO-CH; J0456; J0696; J2704; J2920; J7050; J7506; J7620

== ENCOUNTER 2018-06-20 05:41 | Inpatient (IN) | payer MEDICARE, OTHER ==
[2018-06-20 08:10] LABS: Troponin I 0.023 ng/mL (< 0.028)
[2018-06-20] MEDS ORDERED: Acetaminophen 325 MG TAB ONE (08:17)
[2018-06-20] MEDS ORDERED: Ondansetron ODT 4 MG TAB SL PRN (11:19)
[2018-06-20] MEDS ORDERED: Acetaminophen 325 MG TAB PO PRN (11:19)
[2018-06-20] MEDS ORDERED: Ondansetron HCl/PF 4 MG/2 ML Vial IVP PRN (11:19)
[2018-06-20] MEDS ORDERED: Cefepime 2 GM in Sodium Chloride 0.9% 100 ML IVPB SCH (11:30)
[2018-06-20] MEDS ORDERED: Cefepime 2 GM/10 ML 2 GM in Sodium Chloride 0.9% 100 ML IVPB SCH (11:30)
[2018-06-20] MEDS ORDERED: Vancomycin HCl 1 GM in Premix Bag 1 BAG IVPB SCH (11:30)
[2018-06-20] MEDS ORDERED: predniSONE 20 MG TAB PO SCH ×2 (12:30→12:45)
[2018-06-20] MEDS ORDERED: Furosemide 20 MG/2 ML VIAL SLOW IVP SCH (12:45)
[2018-06-20] MEDS ORDERED: Benzonatate 100 MG CAP PO PRN (12:50)
[2018-06-20] MEDS ORDERED: Furosemide 20 MG TAB PO PRN (13:37)
--- NOTE | 2018-06-20 14:16 | HP ---
CHIEF COMPLAINT: Shortness of breath. HISTORY OF PRESENT ILLNESS: Patient is a 72-year-old female who has a significant history of atrial fibrillation with multiple recurrences in spite of the initial attempted ablation. Patient reports t hat she was doing well with this after being started on amiodarone. However, today the patient prese nted to the emergency department in [place] with some mild chest discomfort and acute onset of troy rtness of breath. However, patient's symptoms were not resolving and attempts to lie down actually m jean carlos it worse, so she ultimately called the EMS and presented to the emergency department. She report s no radiation of the chest discomfort and describes the character of the pain as tightness. In the emergency department in [place], the patient was given IV antibiotics, magnesium and steroids. Giovanni germain was placed on BiPAP; however, there were no ICU beds available for the patient there and she was llamas bsequently transferred here to [place]. The patient was able to come off the BiPAP in the emergen cy department here. However, presently she reports that she is feeling short of breath again after h aving attempted to sit up to eat her lunch and is requesting that she go back on it at this time. Giovanni germain denies any significant peripheral edema. REVIEW OF SYSTEMS: Negative except for those things mentioned in history of present illness. PAST MEDICAL HISTORY: Notable for the above-mentioned atrial fibrillation with rapid ventricular res ponse failing initial attempt at aggressive ablation. She got moderate mitral regurgitation and hype rtension. She has hypothyroidism. She also has a history of colon cancer. PAST SURGICAL HISTORY: Includes surgical resection of the portion of the colon. FAMILY HISTORY: Father has congestive heart failure. She has 3 sisters, all with atrial fibrillatio n. SOCIAL HISTORY: The patient has a history of [id number]-cveu smoking, quit 8 years ago and denies alcoh ol. ALLERGIES: CODEINE. CURRENT MEDICATIONS: Stool softener, levothyroxine 50 mcg daily, Lasix 20 mg p.o. daily, Tessalon Pe rles 100 mg t.i.d., aspirin 81 mg every day, Eliquis 5 mg b.i.d., amiodarone 200 mg p.o. b.i.d. PHYSICAL EXAMINATION: VITAL SIGNS: Temperature is 98.4, pulse 73, respirations 20, O2 sat 98% on nasal cannula, although c urrently the patient appears to be more tachypneic and labored, BP was 128/74. GENERAL APPEARANCE: Again, patient appears to be a bit short of breath and tachypneic with some labo red breathing, although she is able to converse. HEENT: PERRLA. No OP lesions. NECK: Supple and symmetric. CARDIOVASCULAR: Regular, without murmur. LUNGS: Diminished throughout with some mild scattered rales. ABDOMEN: Soft, nontender, nondistended, positive bowel sounds, no masses, no organomegaly. SKIN: Warm and dry without significant edema. LABORATORY DATA: From [facility], ABG: pH 7.41, pCO2 is 34, bicarbonate 21, pO2 78 with O2 sat 96.5. White count 8.1, hemoglobin 12.4, platelets 235. Sodium 136, potassium 3.4, chloride 104 , CO2 is 23, anion gap is 12.4, glucose 154. BUN 18, creatinine 1.1, calcium 8.8, albumin 4.0. LFTs are normal. Troponin less than 0.01. BNP 191. Chest x-ray by my interpretation, she has bibasilar opacities and some prominent vasculature concerning for some pulmonary edema. IMPRESSION AND PLAN: 1. Shortness of breath. This patient has a history of chronic obstructive pulmonary disease, diasto lic dysfunction and pneumonia. She may have some of all of that going on now. I will give her a dos e of Lasix, cover with IV antibiotics and give steroids, nebulizer treatments. We will consult Pulmo luis alberto and Cardiology. 2. History of recurrent atrial fibrillation requiring multiple defibrillations and failed ablation. The patient is not currently in atrial fibrillation, although it is possible she could have had a re currence leading to some decompensation and some heart failure. She will remain on the telemetry [facility] and continue with the amiodarone. We will consult Cardiology. The patient will continue with t he amiodarone and Eliquis. 3. Chronic obstructive pulmonary disease. The patient has a history of COPD with exacerbations. We will continue with nebulizer treatments and oxygen. Cannot rule out underlying pneumonia. She does not appear to be febrile and she has a normal white count; however, her chest x-ray, cannot exclude infiltrate from infection. We will continue with IV antibiotics. 4. Hypothyroidism. We will continue with her usual home dose of levothyroxine at 50 mcg p.o. daily.
[2018-06-20 14:27] LABS: Troponin I 0.012 ng/mL (< 0.028)
[2018-06-20 15:09] LABS: Anion Gap 14 mmol/L (10-20); BUN (Urea Nitrogen) 15 mg/dL (9.8-20.1); Calc. Creatinine Clearance 63 mL/min (70-130); Carbon Dioxide 22 mmol/L (23-31); Chloride 106 mmol/L (98-107); Estimated GFR-MDRD 68; Glucose 132 mg/dL (83-110); Potassium 5.6 mmol/L (3.5-5.1); Sodium 136 mmol/L (136-145)
[2018-06-20] MEDS ORDERED: Furosemide 40 MG/4 ML VIAL SLOW IVP SCH (16:45)
--- NOTE | 2018-06-20 18:29 | CON ---
DATE OF CONSULTATION: 06/20/2018 REASON FOR CONSULTATION: Shortness of breath and acute CHF. She said she had acute onset shortness of breath. She required BiPAP. Upon my arrival, her BiPAP was removed. She states she is feeling b chloe. PAST MEDICAL HISTORY: Atrial fibrillation with rapid ventricular response with status post recent ab lation. She is currently in sinus rhythm, moderate MR, hypertension, hypothyroidism. PAST SURGICAL HISTORY: Colon resection. FAMILY HISTORY: Positive for CAD. SOCIAL HISTORY: Previous tobacco abuse. ALLERGIES: CODEINE. HOME MEDICATIONS: Include levothyroxine, Lasix, amiodarone, aspirin, and Tessalon Perles. REVIEW OF SYSTEMS: Ten-point review of systems is reviewed as above, otherwise negative. PHYSICAL EXAMINATION: GENERAL: Patient is a pleasant female who is in no acute distress. The patient appears her stated a ge. VITAL SIGNS: Blood pressure 130/60, pulse 73, temperature 97.5. NEUROLOGIC: The patient is alert and oriented times 3 with no focal neurologic deficits. HEENT: Sclerae without icterus. Mouth has moist mucous membranes with normal pallor. NECK: No JVD. Carotid upstroke brisk. No bruits bilaterally. LUNGS: Crackles noted bilaterally. BACK: No scoliosis or kyphosis. CARDIAC: Regular rate and rhythm with normal S1 and S2. No S3 or S4 noted. No significant rubs, murmurs, thrills, or gallops noted throughout the precordium. PMI is not displaced. There is no parasternal heave. ABDOMEN: Soft, nontender, nondistended. No peritoneal signs present. No hepatosplenomegaly. No abnormal striae. EXTREMITIES: 2+ femoral and 2+ dorsalis pedis pulses. No cyanosis, clubbing, or edema. SKIN: No gross abnormalities. PERTINENT LABS: Creatinine 0.52, hemoglobin 14.5, INR 1.2. IMPRESSION: 1. Acute on chronic heart failure, etiology unknown. 2. Atrial fibrillation. RECOMMENDATIONS: She does appear to have findings of congestive heart failure. Her LVEF in 03/2018 was felt to be within normal limits. She may have diastolic dysfunction noted after recent ablation or may have underlying diastolic dysfunction. At this point, continue Lasix at 40 mg IV. Continues BiPAP if needed. She appears to be improving.
[2018-06-20] MEDS: Senokot S 8.6-50 MG TAB PO SCH (20:23)
[2018-06-20] MEDS: Aspirin 81 mg Enteric Coated Tablet PO SCH (20:24)
[2018-06-20] MEDS: Apixaban 5 MG TAB PO SCH (20:25)
[2018-06-20] MEDS: Mometasone/Formoterol 120 PUFF INHALER INH SCH (20:36)
[2018-06-20] MEDS ORDERED: Amiodarone 200 MG TAB PO SCH ×2 (21:00→21:30)
[2018-06-20] MEDS ORDERED: Senokot S 8.6-50 MG TAB PO SCH (21:00)
--- NOTE | 2018-06-20 21:29 | CON ---
HISTORY OF PRESENT ILLNESS: Arsenio Rojas is a 72-year-old female who has been in this unit be fore for severe COPD. She is 63 kilos presented with 96% sat on a BiPAP from [facility]. X-ray fr om the [facility] system revealed a cephalization, but no acute infiltrates. Presently she is verbalizing without any obvious distress. She does complain of some tightness. No fever or chills. Symptoms started over 24 hours. Former smoker, quit smoking a year ago from her previous medical records. Most days, she can barely walk 50 feet without getting markedly short of breath. PAST MEDICAL HISTORY: COPD, CHF, colon cancer, atrial fibrillation, hypothyroidism. PAST SURGICAL HISTORY: Colon surgery, hysterectomy. CHRONIC MEDICATION FROM HOME: Dulera, Synthroid 50, Eliquis 5 twice a day, amiodarone 200 a day, Meena salon Perles, Lasix 20 a day admission started on vancomycin, prednisone, Synthroid, Maxipime, DuoNeb s, and Dulera will be initiated. ALLERGIES: CODEINE. SOCIAL HISTORY: Tobacco as noted. REVIEW OF SYSTEMS: Otherwise, 10-point negative. PHYSICAL EXAMINATION: GENERAL: She is awake, responsive, on BiPAP. VITAL SIGNS: Sats 100%, respirations 20, temperature 97, blood pressure 123/69. CHEST: She has decreased breath sounds without any significant wheezing. CARDIAC: Normal S1, S2, no gallops. ABDOMEN: Soft. No masses. IMPRESSION: 1. Chronic obstructive pulmonary disease exacerbation, bronchitis. 2. Congestive heart failure. 3. Colon cancer. 4. Anxiety. I agree with steroids, and empiric antibiotics. I reviewed her x-ray from [facility]. I do not see any obvious infiltrates, pneumonia, except cephalization. Her lab was also noted to be unrevealing. BNP was 191. Sodium was unremarkable. Electrolytes are normal. Calcium unremarkable. Creatinine 1 .1, BUN is 18. White count is only 8000, H&H 12 and 37, platelet count is normal. IMPRESSION: 1. History of exacerbation, bronchitis. 2. Congestive heart failure with atrial fibrillation. PLAN: 1. I would deescalate antibiotics. White count is normal. No pneumonia was seen. 2. Continue steroids, nebulizer treatment. We will follow. Consultation 70 minutes, 50% in direct patient care.
[2018-06-20] MEDS: Cefepime 1 GM in Sodium Chloride 0.9% 100 ML IVPB SCH (21:51)
[2018-06-21] MEDS: Acetaminophen 500 MG TAB PO PRN ×2 (01:45→20:26)
[2018-06-21 04:34] LABS: #Lymphocytes 0.4 thou/uL (1.20-3.40); #Monocytes 0.5 thou/uL (0.11-0.59); #Neutrophils 8.5 thou/uL (1.40-6.50); %Basophils 0.1 % (0.0-1.0); %Eosinophils 0.2 % (0.0-10.0); %Lymphocytes 4.4 % (21.0-51.0); %Monocytes 4.8 % (0.0-10.0); %Neutrophils 90.5 % (42.0-75.0); Hemoglobin 12.6 g/dL (12.0-16.0); Mean Corpuscular HGB CONC 34.1 g/dL (32.0-36.0); Mean Corpuscular Hemoglobin 32.3 pg (27.0-31.0); Mean Corpuscular Volume 94.7 fL (78.0-98.0); Mean Platelet Volume 7.7 fL (7.4-10.4); Platelet Count 268 thou/uL (130-400); RBC Distribution Width 14.9 % (11.5-14.5); Red Blood Cell (RBC) Count 3.88 mill/uL (4.20-5.40); White Blood Cell (WBC) Count 9.4 thou/uL (4.8-10.8)
[2018-06-21 04:46] LABS: Anion Gap 14 mmol/L (10-20); BUN (Urea Nitrogen) 17 mg/dL (9.8-20.1); Calc. Creatinine Clearance 63 mL/min (70-130); Calcium 9.7 mg/dL (7.8-10.44); Carbon Dioxide 26 mmol/L (23-31); Chloride 103 mmol/L (98-107); Estimated GFR-MDRD 68; Glucose 154 mg/dL (83-110); Potassium 4.5 mmol/L (3.5-5.1); Sodium 138 mmol/L (136-145)
[2018-06-21] MEDS: Mometasone/Formoterol 120 PUFF INHALER INH SCH ×2 (06:50→18:16)
[2018-06-21] MEDS ORDERED: Vancomycin HCl 1 GM in Premix Bag 1 BAG IVPB SCH (09:00)
[2018-06-21] MEDS: Cefepime 1 GM in Sodium Chloride 0.9% 100 ML IVPB SCH ×2 (09:18→20:26)
[2018-06-21] MEDS: predniSONE 20 MG TAB PO SCH (09:19)
[2018-06-21] MEDS: Apixaban 5 MG TAB PO SCH ×2 (09:19→20:26)
[2018-06-21] MEDS: Levothyroxine Sodium 50 MCG TAB PO SCH (09:19)
[2018-06-21] MEDS: Furosemide 20 MG TAB PO SCH (09:20)
[2018-06-21] MEDS: Amiodarone 200 MG TAB PO SCH ×2 (09:20→20:26)
--- NOTE | 2018-06-21 09:41 | PDOC.CTH ---
Cardiology Progress Note - Subjective Pt in afib. Feels better but still SOB. No CP. No crow - Objective Vital Signs Temp Pulse Resp BP Pulse Ox 06/21/18 08:13 97.8 F 116 H 20 97 06/21/18 07:00 97.8 F 76 20 120/58 L 98 06/21/18 06:51 98 06/21/18 06:50 68 18 98 06/21/18 06:49 68 18 98 06/21/18 05:25 98 06/21/18 04:34 97 06/21/18 04:00 98.0 F 76 18 116/55 L 100 06/21/18 00:42 78 18 97 06/21/18 00:00 97.6 F 76 20 137/58 L 100 Weight 139 lb 8 oz 06/20/18 06/21/18 06/22/18 06:59 06:59 06:59 Intake Total 1800 Output Total 2150 Balance -350 - Physical Examination General/Neuro: alert & oriented x3, NAD Neck: carotid US brisk, no JVD present Lungs: other: (crackles bilaterally) Heart: other: (IRR) Abdomen: no HSM, NT/ND, soft Extremities: + femoral B - Labs Result Diagrams: 06/21/18 03:51 06/21/18 03:51 Troponin/CKMB Troponin I 0.012 ng/mL (< 0.028) 06/20/18 13:47 - Assessment/Plan 1. Acute on chronic diastolic HF 2. afib 3. Bronchitis 4. Colon cancer continue lasix off bipap Abx Add digoxin, IV CCB and PO CCB Bedside scale for weights
--- NOTE | 2018-06-21 10:23 | RAD ---
UPRIGHT PORTABLE CHEST ONE VIEW: HISTORY: A 72-year-old female with a history of pneumonia, COPD. COMPARISON: 12/18/2017 FINDINGS: Monitor leads overly the chest. Bilateral interstitial and reticulonodular parenchymal changes throu ghout both lungs with minimal cardiomegaly, evidence for chronic lung disease. No confluent pneumoni a. No pleural effusion. IMPRESSION: Stable bilateral interstitial and reticulonodular parenchymal changes, evidence for chronic lung dise ase. No overt new confluent process. Continue short term followup for clearing or stability. POS: MIRA
[2018-06-21] MEDS ORDERED: Diltiazem 125 MG in Sodium Chloride 0.9% 100 ML IVPB SCH (12:30)
[2018-06-21] MEDS ORDERED: Digoxin 0.5 MG/2 ML AMP SLOW IVP SCH (12:30)
[2018-06-21] MEDS ORDERED: Furosemide 40 MG/4 ML VIAL IVP SCH (12:30)
[2018-06-21 12:43] VITALS: BMI 21.2
--- NOTE | 2018-06-21 12:46 | PRG ---
DATE OF SERVICE: 06/21/2018 SUBJECTIVE: This morning, she says she is better. She went back into atrial fibrillation. She is c oncerned that DuoNeb is causing her to go back in atrial fibrillation. OBJECTIVE: VITAL SIGNS: Sats are 97% on 2 liters, respirations 20, pulse 116, temperature 97, blood pressure 12 0/58. CHEST: Reveals decreased breath sounds, no wheezing. CARDIAC: Atrial fibrillation. ABDOMEN: Soft. LABORATORY DATA: Electrolytes are normal. White count is normal. IMPRESSION: 1. Chronic obstructive pulmonary disease exacerbation, bronchitis. 2. Recurrent supraventricular tachycardia. 3. Stable chest x-ray. PLAN: At this stage, continue present treatment. Switch over to oral antibiotics tomorrow. Discont inue vancomycin. All cultures are negative.
--- NOTE | 2018-06-21 13:12 | PDOC.PN ---
- Subjective Encounter Start Date: 06/21/18 Encounter Start Time: 13:10 Feeling better. Breathing better. Did not feel like the Bipap was as helpful, but the neb was. - Objective Resuscitation Status: Resuscitation Status DNR:Do Not Resuscitate Vital Signs & Weight: Vital Signs (12 hours) Temp Pulse Resp BP Pulse Ox 06/21/18 11:00 98.3 F 115 H 20 128/71 100 06/21/18 08:13 97.8 F 116 H 20 97 06/21/18 07:00 97.8 F 76 20 120/58 L 98 06/21/18 06:51 98 06/21/18 06:50 68 18 98 06/21/18 06:49 68 18 98 06/21/18 05:25 98 06/21/18 04:34 97 06/21/18 04:00 98.0 F 76 18 116/55 L 100 Weight Weight 140 lb I&O: 06/20/18 06/21/18 06/22/18 06:59 06:59 06:59 Intake Total 1800 Output Total 2150 Balance -350 Result Diagrams: 06/21/18 03:51 06/21/18 03:51 Phys Exam - Physical Examination Constitutional: NAD Crackles. Most at left upper load. Cardiovascular: RRR, no significant murmur Gastrointestinal: soft, non-tender, no distention, positive bowel sounds Musculoskeletal: no edema Psychiatric: normal affect, A&O x 3 Dx/Plan (1) COPD exacerbation Code(s): J44.1 - CHRONIC OBSTRUCTIVE PULMONARY DISEASE W (ACUTE) EXACERBATION Status: Acute Comment: improving (2) Paroxysmal atrial fibrillation with RVR Code(s): I48.0 - PAROXYSMAL ATRIAL FIBRILLATION Status: Acute Comment: s/p DCCV and failed-back in a-fib (3) HTN (hypertension) Code(s): I10 - ESSENTIAL (PRIMARY) HYPERTENSION Status: Chronic Qualifiers: (4) Hypothyroidism Code(s): E03.9 - HYPOTHYROIDISM, UNSPECIFIED Status: Chronic Qualifiers: - Plan * Now in afib with RVR. Cardiology adding CCB and dig for rate control. Suspect she is having recurrent afib and decompensating with tachycardia due to diastolic dysfunction. Diuresed and feels better. Has underlying COPD. Encouraged her to use the nebs as necessary.
[2018-06-21] MEDS ORDERED: Vancomycin HCl 1.25 GM in Sodium Chloride 0.9% 250 ML 250 ML IVPB SCH (14:00)
[2018-06-21] MEDS: Senokot S 8.6-50 MG TAB PO SCH (20:25)
[2018-06-21] MEDS: Aspirin 81 mg Enteric Coated Tablet PO SCH (20:26)
[2018-06-22 04:32] LABS: Anion Gap 15 mmol/L (10-20); BUN (Urea Nitrogen) 22 mg/dL (9.8-20.1); Calc. Creatinine Clearance 70 mL/min (70-130); Calcium 9.5 mg/dL (7.8-10.44); Carbon Dioxide 20 mmol/L (23-31); Chloride 104 mmol/L (98-107); Estimated GFR-MDRD 79; Glucose 108 mg/dL (83-110); Potassium 3.9 mmol/L (3.5-5.1); Sodium 135 mmol/L (136-145)
[2018-06-22] MEDS: Mometasone/Formoterol 120 PUFF INHALER INH SCH ×2 (07:33→18:28)
--- NOTE | 2018-06-22 07:59 | PDOC.CTH ---
Cardiology Progress Note - Subjective Pt improved. Doing better after converting this am. - Objective Vital Signs Temp Pulse Resp BP Pulse Ox 06/22/18 07:34 96 06/22/18 07:33 79 20 96 06/22/18 07:00 98.1 F 74 18 114/66 95 06/22/18 04:00 97.0 F L 86 14 103/72 97 06/22/18 00:00 97.0 F L 86 15 108/61 92 L 06/21/18 20:00 97.5 F L 128 H 14 95 Weight 137 lb 06/21/18 06/22/18 06/23/18 06:59 06:59 06:59 Intake Total 1800 1644 Output Total 2150 3200 Balance -350 -1556 - Physical Examination General/Neuro: alert & oriented x3, NAD Neck: carotid US brisk, no JVD present Lungs: other: (crackles bilaterally) Heart: PMI normal, RRR Abdomen: no HSM, NT/ND, soft Extremities: + femoral B - Labs Result Diagrams: 06/21/18 03:51 06/22/18 04:00 Troponin/CKMB Troponin I 0.012 ng/mL (< 0.028) 06/20/18 13:47 - Assessment/Plan 1. Acute on chronic diastolic HF 2. Recurrent afib 3. Bronchitis 4. Colon cancer On IV CCB and digoxin IV Added PO CCB given history of bronchitis, COPD EP consult for PAF. She has been loaded on amiodarone. Cotninue ACT. May need EP consult given continue recurrence of afib
[2018-06-22] MEDS ORDERED: predniSONE 5 MG TAB ONE (09:04)
[2018-06-22] MEDS: Apixaban 5 MG TAB PO SCH ×2 (09:44→20:22)
[2018-06-22] MEDS: Levothyroxine Sodium 50 MCG TAB PO SCH (09:45)
[2018-06-22] MEDS: Cefepime 1 GM in Sodium Chloride 0.9% 100 ML IVPB SCH (09:45)
[2018-06-22] MEDS: Furosemide 20 MG TAB PO SCH (09:45)
[2018-06-22] MEDS: Amiodarone 200 MG TAB PO SCH ×2 (09:45→20:22)
[2018-06-22] MEDS: predniSONE 20 MG TAB PO SCH (09:46)
[2018-06-22] MEDS ORDERED: Diltiazem 125 MG in Sodium Chloride 0.9% 100 ML IVPB SCH (11:00)
--- NOTE | 2018-06-22 11:37 | PDOC.PN ---
- Subjective Encounter Start Date: 06/22/18 Encounter Start Time: 11:30 Doing well this morning. No new complaints. - Objective Resuscitation Status: Resuscitation Status DNR:Do Not Resuscitate Vital Signs & Weight: Vital Signs (12 hours) Temp Pulse Resp BP Pulse Ox 06/22/18 09:45 60 06/22/18 08:00 97.0 F L 79 20 98 06/22/18 07:34 96 06/22/18 07:33 79 20 96 06/22/18 07:00 98.1 F 74 18 114/66 95 06/22/18 04:00 97.0 F L 86 14 103/72 97 06/22/18 00:00 97.0 F L 86 15 108/61 92 L Weight Weight 137 lb I&O: 06/21/18 06/22/18 06/23/18 06:59 06:59 06:59 Intake Total 1800 1644 Output Total 2150 3200 Balance -350 -1556 Result Diagrams: 06/21/18 03:51 06/22/18 04:00 Phys Exam - Physical Examination Constitutional: NAD Neck: no JVD, supple Respiratory: no wheezing, no rales, no rhonchi, clear to auscultation bilateral Cardiovascular: RRR, no significant murmur Gastrointestinal: soft, non-tender, no distention, positive bowel sounds Musculoskeletal: no edema Psychiatric: normal affect, A&O x 3 Dx/Plan (1) COPD exacerbation Code(s): J44.1 - CHRONIC OBSTRUCTIVE PULMONARY DISEASE W (ACUTE) EXACERBATION Status: Acute Comment: Improved. On Pred 40 and Omnicef Po. (2) Paroxysmal atrial fibrillation with RVR Code(s): I48.0 - PAROXYSMAL ATRIAL FIBRILLATION Status: Acute Comment: Recurrent episode after being fully loaded with amiodarone. Resulted in heart failure with pulmonary edema. Discussed with Cardiology. Will consult EP. (3) HTN (hypertension) Code(s): I10 - ESSENTIAL (PRIMARY) HYPERTENSION Status: Chronic Qualifiers: (4) Hypothyroidism Code(s): E03.9 - HYPOTHYROIDISM, UNSPECIFIED Status: Chronic Qualifiers: - Plan * Back in NSR now. Think she may resolve the modest residual pulmonary edema with the low dose of lasix this morning. Will not give addition yet.
--- NOTE | 2018-06-22 14:03 | PRG ---
DATE OF SERVICE: 06/22/2018 SUBJECTIVE: This morning, she is better. She is back into sinus rhythm. OBJECTIVE: VITAL SIGNS: Sats are 90% on 3 liters, temperature is 97, blood pressure 146/60. CHEST: Decreased breath sounds, no wheezing. CARDIAC: Normal S1 and S2. No gallops. ABDOMEN: Soft. No masses. IMPRESSION: 1. Chronic obstructive pulmonary disease. 2. Supraventricular tachycardia. PLAN: [facility] [place], I would discontinue all antibiotics. I see no evidence of any pneumonia. She can be discharged home anytime as per Cardiology.
[2018-06-22] MEDS: Senokot S 8.6-50 MG TAB PO SCH (20:21)
[2018-06-22] MEDS: Cefdinir 300 MG CAP PO SCH (20:22)
[2018-06-22] MEDS: Aspirin 81 mg Enteric Coated Tablet PO SCH (20:22)
[2018-06-22] MEDS: Acetaminophen 500 MG TAB PO PRN (20:28)
[2018-06-23 05:25] LABS: Anion Gap 13 mmol/L (10-20); BUN (Urea Nitrogen) 30 mg/dL (9.8-20.1); Calc. Creatinine Clearance 63 mL/min (70-130); Calcium 9.5 mg/dL (7.8-10.44); Carbon Dioxide 25 mmol/L (23-31); Chloride 101 mmol/L (98-107); Estimated GFR-MDRD 72; Glucose 107 mg/dL (83-110); Potassium 3.9 mmol/L (3.5-5.1); Sodium 135 mmol/L (136-145)
[2018-06-23] MEDS: Mometasone/Formoterol 120 PUFF INHALER INH SCH ×2 (07:19→20:30)
--- NOTE | 2018-06-23 09:05 | PRG ---
DATE OF SERVICE: 06/23/2018 This morning she is better. She is having issues with her heart. She is going to see EP today. PHYSICAL EXAMINATION: VITAL SIGNS: Pulse is 57, temperature 98, sats are 98 on 2 liters, blood pressure 137/76, no respira tory distress. CHEST: Chest revealed decreased breath sounds without wheezing. CARDIAC: Normal S1-S2. No gallops. ABDOMEN: Soft. No masses. IMPRESSION: 1. Recurrent supraventricular tachycardia. 2. End stage chronic obstructive pulmonary disease, stable. PLAN: Await input from Cardiology. [facility] [place] will decrease steroids. Continue PT, supportive care. Home when okay with Cardiology.
[2018-06-23] MEDS: Cefdinir 300 MG CAP PO SCH ×2 (09:48→20:24)
[2018-06-23] MEDS: Furosemide 20 MG TAB PO SCH (09:48)
[2018-06-23] MEDS: Apixaban 5 MG TAB PO SCH ×2 (09:48→20:24)
[2018-06-23] MEDS: Amiodarone 200 MG TAB PO SCH (09:48)
[2018-06-23] MEDS: predniSONE 20 MG TAB PO SCH (09:49)
[2018-06-23] MEDS: Levothyroxine Sodium 50 MCG TAB PO SCH (09:49)
--- NOTE | 2018-06-23 13:29 | PDOC.CTH ---
<Tiesha Guido - Last Filed: 06/23/18 13:29> Cardiology Progress Note - Subjective The pt seen and examined. No overnight events. No cardiac complaints. She tolerates Albuterol for Breathing treatment (in past, she went back to Afib when she had breathing tx with Albuterol, per the pt). - Objective Vital Signs Temp Pulse Resp BP BP Pulse Ox 06/23/18 12:00 62 22 H 105/78 98 06/23/18 09:47 65 133/51 L 06/23/18 08:00 98.3 F 57 L 20 97 06/23/18 07:00 98.3 F 57 L 20 137/76 98 06/23/18 04:00 97.4 F L 56 L 19 118/59 L 99 Weight 139 lb 06/22/18 06/23/18 06/24/18 06:59 06:59 06:59 Intake Total 1644 1279.7 Output Total 3200 500 Balance -1556 779.7 - Physical Examination General/Neuro: alert & oriented x3 Neck: no JVD present Lungs: other: (diminished at bases) Heart: RRR Abdomen: soft Extremities: other: (No edema) - Telemetry Telemetry Rhythm: SR 60s - Labs Result Diagrams: 06/21/18 03:51 06/23/18 04:37 Troponin/CKMB Troponin I 0.012 ng/mL (< 0.028) 06/20/18 13:47 - Assessment/Plan 1. Afib with RVR with hx of DCCV and ablation in past - converted back to SR at 0800 on 06/22/18; On Amiodarone 200mg BID until today and change to 1 tab daily from tomorrow, Diltiazem 240mg qd, Eliquis 5mg BID, and ASA 81mg qd. Cont. to monitor on tele; waiting for EP consult; The pt refuses ablation and cont. to manage with medication. 2. HTN - stable 3. Bronchitis - on antibiotics; managed by PCP 4. Hypothyroidism - managed by PCP 5. Colon cancer - MAR reviewed * The pt refuses ablation and cont. to manage with medication. Review of Systems - Review of Systems Constitutional: reports: no symptoms reported EENTM: reports: no symptoms reported Respiratory: reports: no symptoms reported Cardiac (ROS): reports: no symptoms reported ABD/GI: reports: no symptoms reported : reports: no symptoms reported Musculoskeletal: reports: no symptoms reported <Gustavo Barakta - Last Filed: 06/23/18 17:38> Cardiology Progress Note - Objective Vital Signs Temp Pulse Resp BP BP Pulse Ox 06/23/18 16:00 98.8 F 62 18 122/56 L 94 L 06/23/18 12:00 62 22 H 105/78 98 06/23/18 09:47 65 133/51 L 06/23/18 08:00 98.3 F 57 L 20 97 06/23/18 07:00 98.3 F 57 L 20 137/76 98 Weight 139 lb 06/22/18 06/23/18 06/24/18 06:59 06:59 06:59 Intake Total 1644 1279.7 Output Total 3200 500 Balance -1556 779.7 - Labs Result Diagrams: 06/21/18 03:51 06/23/18 04:37 Troponin/CKMB Troponin I 0.012 ng/mL (< 0.028) 06/20/18 13:47 - Assessment/Plan Pt. seen and eval. b y me. I agree with the A/P by the COLD STORAGE WORKER. I have discussed the pt. with EP. We would like to stop the amiodarone due to possible amiodarone toxicity potential. She will either need a repeat ablation for afib. or an AVJ ablation with a bi-V. pacemaker implant. Dr. Jaeger will speak with her again. RRR, chest clear.
[2018-06-23] MEDS: Acetaminophen 500 MG TAB PO PRN (20:24)
[2018-06-23] MEDS: Senokot S 8.6-50 MG TAB PO SCH (20:24)
[2018-06-23] MEDS: Aspirin 81 mg Enteric Coated Tablet PO SCH (20:24)
--- NOTE | 2018-06-23 23:17 | PDOC.PN ---
- Subjective Encounter Start Date: 06/23/18 Encounter Start Time: 10:50 Doing well. Breathing is much improved. No other complaints. - Objective Resuscitation Status: Resuscitation Status DNR:Do Not Resuscitate Vital Signs & Weight: Vital Signs (12 hours) Temp Pulse Resp BP Pulse Ox 06/23/18 20:30 95 06/23/18 20:00 98.7 F 57 L 20 144/61 H 95 06/23/18 19:29 93 L 06/23/18 16:00 98.8 F 62 18 122/56 L 94 L 06/23/18 12:00 62 22 H 105/78 98 Weight Weight 139 lb I&O: 06/22/18 06/23/18 06/24/18 06:59 06:59 06:59 Intake Total 1644 1279.7 800 Output Total 3200 500 1125 Balance -1556 779.7 -325 Result Diagrams: 06/21/18 03:51 06/23/18 04:37 Phys Exam - Physical Examination Constitutional: NAD Neck: no JVD, supple Respiratory: no wheezing, no rales, no rhonchi Decreased BS throughout. Cardiovascular: RRR, no significant murmur Gastrointestinal: soft, non-tender, no distention, positive bowel sounds Musculoskeletal: no edema Psychiatric: normal affect Dx/Plan (1) COPD exacerbation Code(s): J44.1 - CHRONIC OBSTRUCTIVE PULMONARY DISEASE W (ACUTE) EXACERBATION Status: Acute Comment: Improved. On Pred 40 and Omnicef Po. (2) Paroxysmal atrial fibrillation with RVR Code(s): I48.0 - PAROXYSMAL ATRIAL FIBRILLATION Status: Acute Comment: Recurrent episode after being fully loaded with amiodarone. Resulted in heart failure with pulmonary edema. Discussed with Cardiology/EP. Concern for Amiodarone given the respiratory issues. Plan to try Multaq and plan another ablation. (3) HTN (hypertension) Code(s): I10 - ESSENTIAL (PRIMARY) HYPERTENSION Status: Chronic Qualifiers: (4) Hypothyroidism Code(s): E03.9 - HYPOTHYROIDISM, UNSPECIFIED Status: Chronic Qualifiers: - Plan * above.
--- NOTE | 2018-06-24 02:48 | CON ---
DATE OF CONSULTATION: 06/23/2018 ELECTROPHYSIOLOGY CONSULTATION REPORT REFERRING PHYSICIAN: Dr. Barakat. I am seeing Ms. Rojas at our [facility] step down ICU as an electrophysiology interior design consultant. Her problems are: 1. Acute on chronic heart failure prompting this admission. A. Elevated BNP at 758 on 05/20/2018. 2. Recurrent atrial arrhythmias. A. Prior history of paroxysmal atrial fibrillation, status post pulmonary venous isolation and exten sive ablation procedure in 03/13/2018. B. Recurrence of atypical atrial flutter, refractory to flecainide and cardioversion, eventually on amiodarone taper. C. Current recurrence on this admission with spontaneous conversion to sinus rhythm, currently maint aining sinus rhythm. 3. Mild asymptomatic bradycardia. 4. History of preserved LV function with normal LVEF in the past on echo 01/24/2018, 65% mild left a trial dilation, mild to moderate mitral regurgitation, mild tricuspid regurgitation. 5. History of pulmonary disease with chronic obstructive pulmonary disease. 6. Elevated CHADS-VASc score with age, gender, hypertension, currently on Eliquis. 7. History of colon cancer 6 years ago, status post chemotherapy and surgery. 8. History of urinary tract infection in 03/2018. 9. Prior history of pneumonia. ALLERGIES: CODEINE. MEDICATIONS AT HOME: Included levothyroxine, aspirin, Eliquis 5 mg twice daily, Lasix, verapamil 120 mg a day, digoxin 125 mcg a day, albuterol inhaler, Advair and also amiodarone 200 mg p.o. b.i.d. SUBJECTIVE: Ms. Rojas is here with dyspnea episodes. She had elevated BNP and she was diagnosed wi th heart failure. She has no history of diabetes, functional significance before. She was in sinus rhythm initially, but while receiving nebulizer therapies, she did develop atrial fibrillation/flutte r with rapid rates and she also received antibiotics and prednisone. She is later converted back to sinus rhythm and for the last day and a half, she maintained normal rhythm. No extreme bradycardia o r tachycardia detected. She is feeling good now. She denies dyspnea. No fever, chills, cough. No stroke-like symptoms, no neurological deficits. Rest of 12-point system otherwise unremarkable. PAST MEDICAL HISTORY: As above. SOCIAL HISTORY: The patient is smoking currently. She denies ETOH or drug abuse. She has been a pr ior smoker. FAMILY HISTORY: Noncontributory, but significant for CHF OBJECTIVE DATA: VITAL SIGNS: Blood pressure is 105/78, heart rate 62, respiration 22, temperature 98.3 degrees Fahre nheit. GENERAL: Alert and oriented woman, in no apparent distress. NECK: Supple. Jugular veins are not distended. CHEST: Coarse with a right-sided crackles at the base. CARDIAC: Heart sounds are regular to rate and rhythm. No murmur or gallop. ABDOMEN: Benign. Bowel sounds positive. EXTREMITIES: Lower extremities without edema, clubbing or cyanosis. Pulses are adequate. NEUROLOGIC: The patient nonfocal. MUSCULOSKELETAL: No joint swelling or deformities. SKIN: Without rash. DATABASE: The EKGs reviewed. Initial EKG reveals sinus rhythm, rate of 74 beats per minute, QTC 530 milliseconds, nonspecific ST-T changes are seen. Subsequent EKGs reveal a development of coarse atr ial fibrillation/atypical flutter, eventually resolution of this is seen with return of sinus rhythm noted on 06/22/2018 at 08:00 in the morning. LABORATORY DATA: Sodium 135, potassium 3.9, BUN is 30, creatinine is 0.78. Troponins are 0.012. BM P was 758 this admission. The INR 1.2. White cell count is 9.4, hemoglobin 12.6, platelet count is 268. Chest x-ray results reviewed on 06/21/2018 revealing stable bilateral interstitial and parenchy mal changes. No overt discomfort process. ASSESSMENT AND PLAN: Ms. Rojas is a pleasant 72-year-old woman with history of recurrent atrial arr hythmias, who underwent an extensive ablation about [address] Mckay, had recurrence of a trial fibrillation/flutter and required flecainide, but eventually to be placed on amiodarone for rhy thm and rate maintenance. Now her rate is still suboptimally controlled during her episodes of atria l fibrillation, but she is on the other hand converted back to sinus rhythm and currently is stable. I discussed her current options. Amiodarone seems to be gradually working on her and she is likely l oaded with adequate level at this time. On the other hand, with her baseline pulmonary disease, this medication is not a good long-term option. Reluctance about repeat ablation transient medical therapy. Long-term though she might need to reconsider the ablation versus pacing and even though a blation could be also considered. I detailed again the risk of amiodarone administration including p otential lung toxicity. She will likely need to follow up with the environmental emergencies planner in this regard. Fo r now, I will reduce the amiodarone to 200 mg a day level. We will discuss the potential options for pacemaker implantation with Dr. Barakat and we will follow up with you. Thank you for allowing me to participate in the care of this patient.
[2018-06-24] MEDS: Mometasone/Formoterol 120 PUFF INHALER INH SCH ×2 (08:01→19:17)
[2018-06-24] MEDS ORDERED: Amiodarone 200 MG TAB PO SCH (09:00)
--- NOTE | 2018-06-24 09:04 | PRG ---
DATE OF SERVICE: 06/24/2018 This morning she is doing better. Her medicine is adjusted by Cardiology. [facility], she denie s difficulty breathing. PHYSICAL EXAMINATION: VITAL SIGNS: Sats are 92% on room air, respirations 22, temperature 98, pulse 57, blood pressure 140 /64. CHEST: Chest reveals decreased breath sounds, no wheezing. CARDIAC: Normal S1, S2, no gallops. ABDOMEN: Soft, no masses. IMPRESSION: 1. Chronic obstructive pulmonary disease. 2. Supraventricular tachycardia. 3. DNR. PLAN: [facility], she is ready to be discharged home. She needs no oxygen at the present time. PT and supportive care. I will follow.
[2018-06-24] MEDS: predniSONE 20 MG TAB PO SCH (09:35)
[2018-06-24] MEDS: Cefdinir 300 MG CAP PO SCH ×2 (09:35→21:37)
[2018-06-24] MEDS: Furosemide 20 MG TAB PO SCH (09:35)
[2018-06-24] MEDS: Apixaban 5 MG TAB PO SCH ×2 (09:36→21:36)
[2018-06-24] MEDS: Levothyroxine Sodium 50 MCG TAB PO SCH (09:36)
[2018-06-24] MEDS: Dronedarone HCl 400 MG TAB PO SCH ×2 (09:36→15:44)
--- NOTE | 2018-06-24 09:36 | PDOC.CTH ---
<Tiesha Guido - Last Filed: 06/24/18 09:32> Cardiology Progress Note - Subjective The pt seen and examined. No overnight events. Back to Afib around 0800 today. She started having SOB and fatigue since then. She agrees to have ablation. - Objective Vital Signs Temp Pulse Resp BP Pulse Ox 06/24/18 07:39 98.6 F 57 L 22 H 140/64 92 L 06/24/18 03:52 53 L 18 133/45 L 92 L 06/24/18 03:30 100 06/23/18 23:47 98.4 F 54 L 20 134/61 100 Weight 137 lb 06/23/18 06/24/18 06/25/18 06:59 06:59 06:59 Intake Total 1279.7 1000 Output Total 500 1825 Balance 779.7 -825 - Physical Examination General/Neuro: alert & oriented x3 Neck: no JVD present Lungs: other: (diminished at bases) Heart: other: (irregular) Abdomen: soft Extremities: other: (no edema) - Telemetry Telemetry Rhythm: Afib 90-100s - Labs Result Diagrams: 06/21/18 03:51 06/23/18 04:37 Troponin/CKMB Troponin I 0.012 ng/mL (< 0.028) 06/20/18 13:47 - Assessment/Plan 1. Afib with RVR with hx of DCCV and ablation in past - Back to Afib from SR at 0800 on 06/24/18; Amiodarone was stopped for possible amiodarone toxicity potential. Will start Multaq 400mg BID from this AM. Cont. Diltiazem 240mg qd , Eliquis 5mg BID, and ASA 81mg qd. Cont. to monitor on tele; She will either need a repeat ablation for afib. or an AVJ ablation with a bi-V. pacemaker implant. She agrees to have ablation. 2. HTN - stable 3. Bronchitis - on antibiotics; managed by PCP 4. Hypothyroidism - managed by PCP 5. Colon cancer - MAR reviewed * The pt agrees to have ablation. Review of Systems - Review of Systems Constitutional: reports: no symptoms reported EENTM: reports: no symptoms reported Respiratory: reports: no symptoms reported Cardiac (ROS): reports: no symptoms reported ABD/GI: reports: no symptoms reported : reports: no symptoms reported Musculoskeletal: reports: no symptoms reported <Gustavo Barakat - Last Filed: 06/25/18 10:06> Cardiology Progress Note - Objective Vital Signs Temp Pulse Resp BP BP Pulse Ox 06/25/18 09:53 114 H 06/25/18 08:06 97.5 F L 114 H 16 97 06/25/18 07:34 97.5 F L 114 H 16 131/77 97 06/25/18 06:35 89 16 92 L 06/25/18 04:00 97.9 F 88 18 105/73 94 L 06/25/18 00:00 98.5 F 87 17 104/62 95 Weight 137 lb 06/24/18 06/25/18 06/26/18 06:59 06:59 06:59 Intake Total 1000 850 Output Total 1825 1350 Balance -825 -500 - Labs Result Diagrams: 06/21/18 03:51 06/23/18 04:37 Troponin/CKMB Troponin I 0.012 ng/mL (< 0.028) 06/20/18 13:47 - Assessment/Plan Pt. seen and eval. by me. I agree with the A/P by the ACCOUNTS PAYABLE PAYROLL COORDINATOR. She is being folloewd by EP also. She has returned to Afib. The rate is under reasonable control. Chest cler. Irreg. rhythm.
--- NOTE | 2018-06-24 15:33 | PDOC.PN ---
- Subjective Encounter Start Date: 06/24/18 Encounter Start Time: 15:31 Todd seen and examined, went back into atrial fibrillation overnight, no other issues otherwise, at bedside, all questions answered. - Objective Resuscitation Status: Resuscitation Status DNR:Do Not Resuscitate Vital Signs & Weight: Vital Signs (12 hours) Temp Pulse Resp BP Pulse Ox 06/24/18 11:36 98.8 F 108 H 16 132/82 95 06/24/18 09:35 57 L 06/24/18 07:43 98.8 F 108 H 16 92 L 06/24/18 07:39 98.6 F 57 L 22 H 140/64 92 L 06/24/18 03:52 53 L 18 133/45 L 92 L Weight Weight 137 lb I&O: 06/23/18 06/24/18 06/25/18 06:59 06:59 06:59 Intake Total 1279.7 1000 Output Total 500 1825 Balance 779.7 -825 Result Diagrams: 06/21/18 03:51 06/23/18 04:37 Phys Exam - Physical Examination Constitutional: NAD HEENT: PERRLA, moist MMs, sclera anicteric Neck: no nodes, no JVD, supple Respiratory: no wheezing, no rales, no rhonchi Cardiovascular: no significant murmur, no rub, irregular Gastrointestinal: soft, non-tender, no distention Musculoskeletal: no edema, pulses present Dx/Plan (1) Paroxysmal atrial fibrillation with RVR Code(s): I48.0 - PAROXYSMAL ATRIAL FIBRILLATION Status: Acute Comment: Recurrent episode after being fully loaded with amiodarone. Resulted in heart failure with pulmonary edema. Discussed with Cardiology/EP. Concern for Amiodarone given the respiratory issues. Plan to try Multaq and plan another ablation. (2) HTN (hypertension) Code(s): I10 - ESSENTIAL (PRIMARY) HYPERTENSION Status: Chronic Qualifiers: (3) Hypothyroidism Code(s): E03.9 - HYPOTHYROIDISM, UNSPECIFIED Status: Chronic Qualifiers: (4) Moderate mitral regurgitation by prior echocardiogram Code(s): I34.0 - NONRHEUMATIC MITRAL (VALVE) INSUFFICIENCY Status: Chronic (5) PFO (patent foramen ovale) Code(s): Q21.1 - ATRIAL SEPTAL DEFECT Status: Chronic - Plan * Todd was in atrial fibrillation and then to NSR however patient has now reverted back to afib * watch for 24 hours per EP for now * DC in 24 hrs if ok with EP * no other changes in plan for now * case and plan d/w patient and at length, they understand and agree with this plan
--- NOTE | 2018-06-24 18:12 | PRG ---
DATE OF SERVICE: 06/24/2018 ELECTROPHYSIOLOGY FOLLOWUP NOTE SUBJECTIVE: Ms. Rjoas is complaining of palpitations, they has sudden atrial fibrillation recurred. OBJECTIVE DATA: VITAL SIGNS: Blood pressure is 140/64, heart rate 57, respiratory rate 22, temperature 98.6 degrees Fahrenheit. GENERAL: Alert and oriented woman in no apparent distress. NECK: Supple. Jugular veins are not distended. CHEST: Coarse without crackles. CARDIOVASCULAR: Heart sounds are irregularly irregular. S1, S2 are variable. No murmur or gallop. ABDOMEN: Benign. Bowel sounds positive. EXTREMITIES: Lower extremity without edema, clubbing, or cyanosis. DATABASE: The telemetry strips reveal recurrent atypical atrial flutter with ventricular rates in th e 100-110 beats per minute. ASSESSMENT AND PLAN: 1. Ms. Rojas is a pleasant 72-year-old woman with history of atrial arrhythmias. She underwent brea or pulmonary venous isolation left atrial ablation procedure, but had recurrence of atrial arrh ythmias. She underwent suppression with amiodarone, but now due to pulmonary symptoms, we decided to stop this medication. She is transitioning to Multaq. Recurrence of atrial flutter is seen today, but the rates are moderately controlled. At this point, our plan is to continue Multaq full dose and continue rate control. 2. History of patent foramen ovale, chronic. Monitor. 3. Anticoagulation with Eliquis. 4. Chronic obstructive pulmonary disease, bronchitis; under control. 5. Moderate mitral regurgitation by echo. We will follow up and likely plan to do outpatient ablation procedure.
[2018-06-24] MEDS: Senokot S 8.6-50 MG TAB PO SCH (21:38)
[2018-06-24] MEDS: Aspirin 81 mg Enteric Coated Tablet PO SCH (21:38)
[2018-06-24] MEDS: Acetaminophen 500 MG TAB PO PRN (21:40)
[2018-06-25] MEDS: Mometasone/Formoterol 120 PUFF INHALER INH SCH (06:35)
[2018-06-25] MEDS ORDERED: Amiodarone 200 MG TAB PO SCH (09:00)
[2018-06-25] MEDS ORDERED: predniSONE 20 MG TAB PO SCH ×2 (09:00→09:05)
[2018-06-25] MEDS: predniSONE 20 MG TAB PO SCH (09:22)
--- NOTE | 2018-06-25 09:28 | PRG ---
DATE OF SERVICE: 06/25/2018 This morning she is better. She is less short of breath. PHYSICAL EXAMINATION: VITAL SIGNS: Blood pressure is 131/77, sats are 97% on room air, respiration 16, pulse 140, temperat ure 97. CHEST: Chest revealed decreased breath sounds, no wheezing. CARDIAC: Normal S1-S2. No gallops. ABDOMEN: No masses. IMPRESSION: 1. Recurrent supraventricular tachycardia. 2. End-stage chronic obstructive pulmonary disease. PLAN: [facility] [place], she can be discharged home on tapering dose of prednisone. Follow up with her primary care physician. She can see me in the office as needed.
[2018-06-25] MEDS: Dronedarone HCl 400 MG TAB PO SCH (09:53)
[2018-06-25] MEDS: Levothyroxine Sodium 50 MCG TAB PO SCH (09:53)
[2018-06-25] MEDS: Furosemide 20 MG TAB PO SCH (09:53)
[2018-06-25] MEDS: Cefdinir 300 MG CAP PO SCH (09:53)
[2018-06-25] MEDS: Apixaban 5 MG TAB PO SCH (09:53)
[2018-06-25 11:36] VITALS: BP 128/74; TEMP 98.4
--- NOTE | 2018-06-25 14:41 | PDOC.CTH ---
Cardiology Progress Note - Subjective The pt seen and examined. No overnight events. No cardiac complaints. - Objective Vital Signs Temp Pulse Resp BP BP Pulse Ox 06/25/18 11:35 98.4 F 111 H 17 128/74 94 L 06/25/18 09:53 114 H 06/25/18 08:06 97.5 F L 114 H 16 97 06/25/18 07:34 97.5 F L 114 H 16 131/77 97 06/25/18 06:35 89 16 92 L 06/25/18 04:00 97.9 F 88 18 105/73 94 L Weight 137 lb 06/24/18 06/25/18 06/26/18 06:59 06:59 06:59 Intake Total 1000 850 Output Total 1825 1350 Balance -825 -500 - Physical Examination General/Neuro: alert & oriented x3 Neck: no JVD present Lungs: CTA (diminished at bases) Heart: RRR Abdomen: soft Extremities: other: (No edema) - Telemetry Telemetry Rhythm: SR 90-100s - Labs Result Diagrams: 06/21/18 03:51 06/23/18 04:37 Troponin/CKMB Troponin I 0.012 ng/mL (< 0.028) 06/20/18 13:47 - Assessment/Plan 1. Afib with RVR with hx of DCCV and ablation in past - Converted back to SR at 1237 on 06/25/18 with Multaq 400mg BID. Cont. Diltiazem 240mg qd, Eliquis 5mg BID, and ASA 81mg qd. She will have either a repeat ablation for afib or an AVJ ablation with a bi-V. pacemaker implant. She agrees to have ablation. 2. HTN - stable 3. Bronchitis - on antibiotics; managed by PCP 4. Hypothyroidism - managed by PCP 5. Colon cancer - MAR reviewed * The pt agrees to have ablation. * From cardiac standpoint, the pt is stable to d/c home. Sample of Multaq was given to the pt today. The pt will f/u with Dr Carmen's office after she has any procedure for afib. Review of Systems - Review of Systems Constitutional: reports: no symptoms reported EENTM: reports: no symptoms reported Respiratory: reports: no symptoms reported Cardiac (ROS): reports: no symptoms reported ABD/GI: reports: no symptoms reported : reports: no symptoms reported Musculoskeletal: reports: no symptoms reported Skin: reports: no symptoms reported
--- NOTE | 2018-06-25 19:09 | PRG ---
DATE OF SERVICE: 06/25/2018 ELECTROPHYSIOLOGY FOLLOWUP NOTE SUBJECTIVE: Ms. Rojas is doing fair, although continues in atrial fibrillation with suboptimal rate control. OBJECTIVE DATA: VITAL SIGNS: Blood pressure 122/74, heart rate 111, respiratory rate 17, temperature 98.4 degrees Fahrenheit. GENERAL: Alert and oriented woman, in no apparent distress. NECK: Supple. Jugular veins not distended. CHEST: Coarse without crackles. CARDIOVASCULAR: Heart sounds are irregularly irregular. S1 is variable. No murmur or gallop. ABDOMEN: Benign. Bowel sounds positive. EXTREMITIES: Lower extremities without edema, clubbing or cyanosis. DATABASE: ____ reveals atrial fibrillation/atypical atrial flutter with suboptimal rate control in the month end. ASSESSMENT AND PLAN: Ms. Rojas is a pleasant 72-year-old woman with history of atrial arrhythmias, extensive atrial ablation ____ has recurrent arrhythmias , eventually controlled with amiodarone, but due pulmonary issues, we have to stop that. She is now on Multaq with moderate rate control, still in atrial fibrillation. PLAN: At this point, for now we will continue apixaban, Multaq and diltiazem. We did discuss about the option of an outpatient redo ablation with her and she is interested in proceeding with that. Hence, her blood pressure is stable, I will increase her diltiazem further to 300 mg a day. Possibly, she can be discharged on a these dose eventually. MTDD
--- NOTE | 2018-06-26 05:43 | DIS ---
DATE OF ADMISSION: 06/21/2018 DATE OF DISCHARGE: 06/25/2018 ADMISSION DIAGNOSES: 1. Atrial fibrillation with rapid ventricular response. 2. Bronchitis. 3. Acute on chronic diastolic heart failure. 4. Colon cancer. DISCHARGE DIAGNOSES: 1. Atrial fibrillation with rapid ventricular response. 2. Bronchitis. 3. Acute on chronic diastolic heart failure. 4. Colon cancer. HISTORY OF PRESENT ILLNESS: This is a 72-year-old female with a history of atrial fibrillation with RVR and also history of DCCV and ablation in the past. Cardioverted back to sinus rhythm on 06/25/20 18, patient was discharged with Multaq and also diltiazem, Eliquis and aspirin and the plan is for he r to have repeat ablation for atrial fibrillation or an ABG ablatin with biventricular pacemaker impl ant. Hypertension is stable. Bronchitis, continue with antibiotics. Hypothyroidism, continue with home medications. DISCHARGE INSTRUCTIONS: 1. Please follow up with the high pressure firer and also . 2. Take medications as prescribed. 3. Activities as tolerated. 4. Diet: Heart healthy diet.
[2018-06-26] MEDS ORDERED: Diltiazem HCl CD 300 mg Capsule PO SCH (09:00)
[2018-07-05] MEDS ORDERED: Amiodarone 200 MG TAB PO SCH (09:00)
== END 2018-06-25 17:56 | disposition home or self-care (01) | DRG 292 ==
LOC: ERS 05:41 → IMCU/EMU 09:19
PROVIDERS: ADMIT Internal Medicine; ATTEND Internal Medicine
DX: I11.0 Hypertensive heart disease with heart failure (principal); J44.1 Chronic obstructive pulmonary disease with (acute) exacerbation; Q21.1 Atrial septal defect; I50.33 Acute on chronic diastolic (congestive) heart failure; I48.0 Paroxysmal atrial fibrillation; I34.0 Nonrheumatic mitral (valve) insufficiency; E03.9 Hypothyroidism, unspecified; Z66 Do not resuscitate; Z85.038 Personal history of other malignant neoplasm of large intestine; Z87.891 Personal history of nicotine dependence
CPT/HCPCS: 36415; 71045; 80048; 84484; 85025; 93005; 93798; 94640; 94660; 94760; A4216; J0692; J1160; J1940; J3370; J7050; J7506; J7620

== ENCOUNTER 2018-07-01 07:33 | Inpatient (IN) | payer MEDICARE, OTHER ==
[2018-07-01] MEDS ORDERED: cefTRIAXone\\ROCEPHIN 1 GM in Sodium Chloride 0.9% 100 ML IVPB SCH (09:00)
[2018-07-01] MEDS ORDERED: Enoxaparin Sodium 40 MG/0.4 ML SYRINGE SC SCH ×2 (09:03→11:00)
[2018-07-01 09:31] LABS: CKMB 1.7 ng/mL (0-6.6)
--- NOTE | 2018-07-01 09:43 | HP ---
Transfer from hospital, Dr. Johnson. HISTORY OF PRESENT ILLNESS: Patient recently in our hospital, discharged 06/25/2018. She presents w ith severe shortness of breath. She states she has had fever up to 98.7 and her usual being 96.7, co ugh with brown sputum, no chest pain. She was placed on BiPAP and transferred here. She is still on BiPAP. REVIEW OF SYSTEMS: Some minor dizziness yesterday, no fainting. Eyes: No double vision, blurred vi marissa. Ears, Nose, and Throat: She states no ear pain or drainage. No nasal bleeding. She does hav e sinus discharge. No trouble swallowing. Cardiac: No chest pain, orthopnea, or paroxysmal nocturn al dyspnea. Respirations: See present illness. Gastrointestinal: No nausea, vomiting, diarrhea, c onstipation, or abdominal pain. Genitourinary: No hematuria, dysuria, or nocturia. Musculoskeletal : No pain or swelling in her arms or legs. Neurological: No strokes, seizures, or focal weakness. Psychiatric: No anxiety or depression. Heme/Lymph: No tender or swollen lymph nodes in axilla, in guinal, or cervical area. SKIN: Easy bruising on her arms. PAST MEDICAL HISTORY: COPD, former smoker, quit 9 to 10 years ago; atrial fibrillation, post-ablatio n failure. She was scheduled for another ablation procedure, but returned to the hospital before. H istory of colon cancer post resection, mitral insufficiency, hypothyroidism, ALLERGIES: Allergic to CODEINE. CURRENT MEDICATIONS: Dulera 200/5 two puffs b.i.d., DuoNeb 3 mL q.4 hours p.r.n., Multaq 400 mg p.o. b.i.d., diltiazem 240 mg p.o. daily, levothyroxine 50 mcg a day, Lasix 20 mg a day, Omnicef 300 mg t wice a day at discharge, Tessalon 100 mg t.i.d. p.r.n., aspirin 81 mg a day, Eliquis 5 mg p.o. b.i.d. FAMILY HISTORY: Father has congestive heart failure. She has 3 sisters with atrial fibrillation. SOCIAL HISTORY: Quit smoking 9 years ago. Denies alcohol. CODE STATUS: FULL CODE status. , surrogate decision maker. PHYSICAL EXAMINATION: GENERAL: The patient is alert, comfortable on BiPAP. CURRENT VITAL SIGNS: Blood pressure 125/58, pulse 60, respirations 22-33, O2 sat 90 on CPAP O2 of 2 liters. HEENT: Examination of head, eyes, ears, nose, and throat reveal pupils equal and round. Extraocular movements are intact. Sclerae white. Tympanic membranes clear. Nose clear. Oral mucous membranes are wet. Dental hygiene is good. NECK: Supple, without jugular venous distention, adenopathy, or thyromegaly. CHEST: Hyperresonant with decreased breath sounds and scattered rhonchi. HEART: Regular rate and rhythm. First and second heart sounds clear. No appreciated gallops. She does have a 2/6 holosystolic murmur. ABDOMEN: Soft, bowel sounds are normal. There is no hepatosplenomegaly, no mass, no rebound. EXTREMITIES: Reveal no cyanosis, clubbing, or edema. PULSES: Carotid, radial, femoral pulses intact. Pedal pulses diminished. SKIN: Warm and dry with ecchymoses on her arms. LYMPHATIC SURVEY: Negative for lymphadenopathy in her axilla, inguinal, or cervical area. NEUROLOGIC: Cranial nerves II-XII are intact. Deep tendon reflexes symmetric. LABORATORY DATA: No lab, x-ray, etc., had been done here. I have perused her transferring data from hospital. Her ABG: pH of 7.44, CO2 of 34.7, O2 of 112 on oxygen. BNP 351. Electrolytes are joaquin dot. BUN 19, creatinine 1.0. Liver function tests are normal. White count 20.5, hemoglobin 13.0, p latelet count 333,000. PT/INR 2.0. As mentioned before, I failed to find a chest x-ray in the trans benny information. ADMITTING DIAGNOSES: 1. Acute respiratory failure, chronic obstructive pulmonary disease, recently discharged on predniso ne, now off prednisone, and decompensated. 2. Atrial fibrillation, on Multaq, now in regular sinus rhythm 3. Hypothyroidism. 4. Mitral insufficiency. PLAN: Moved to [facility], on BiPAP. Pulmonary consult, IV steroids, Xopenex nebs q.8 hours, DuoNeb q.4 h ours p.r.n. Continue Multaq, Eliquis, diltiazem.
--- NOTE | 2018-07-01 10:55 | PDOC.PULCN ---
<Lex Francis - Last Filed: 07/01/18 11:53> Pulmonology Consult: HPI - Date of Consult Date: 07/01/18 Time: 10:30 - Consult Details Reason for Consult: COPD Requesting Physician: Arron - History of Present Illness HPI: VICKIE AYALA is a 72 year-old F w/ PMH including A fib, COPD, colon cancer s/p resection, and CHF. She presents today for shortness of breath with is associated with cough and started acutely last night. She was recently discharged after hospital stays 05/28 and 06/25. She states she was feeling well yesterday than about 10pm started feeling short of breath and so decided to go in for evaluation. She states her temp is usually 96.7 and yesterday was 98.6. She has some chest soreness from increased work of breathing but denies chest pain. She has no N/V/D/ Pulmonology Consult: ROS - Review of Systems Constitutional: weakness. negative: fever, chills Cardiovascular: light headedness. negative: chest pain, palpitations Respiratory: cough, pain on deep breathing, short of breath Pulmonology Consult: PMH Source: patient, other (chart) Past Medical History: Htn, hypothyroidism, afib, colon cancer s/p resection, CHF, COPD - Social History Smoking Status: Former smoker, Other (smoked 1ppd for 50 years, quit 9 years ago ) Alcohol Use: none Drug Use History: none Living Situation: Pulmonology Consult: Meds - Medications MAR Reviewed: Yes Medications: Current Medications Acetaminophen (Tylenol) 650 mg PO Q4H PRN PRN Reason: Headache/Fever or Pain Albuterol/Ipratropium (Duoneb) 3 ml NEB [id number] PRN PRN Reason: SOB &/or Wheezing Diltiazem HCl (Cardizem Cd) 240 mg PO DAILY [facility] Dronedarone (Multaq) 400 mg PO BID-[facility] Enoxaparin Sodium (Lovenox) 40 mg SC 0900 [facility] Enoxaparin Sodium (Lovenox) 40 mg SC NOW [facility] Stop: 07/01/18 12:00 Ceftriaxone Sodium 1 gm/ (Sodium Chloride) 100 mls @ 200 mls/hr IVPB Q24HR [facility] Levalbuterol HCl (Xopenex) 0.63 mg NEB Q6EP-RI [facility] Methylprednisolone Sodium Succinate (Solu-Medrol) 40 mg IVP Q6HR [facility] Mometasone Furoate/Formoterol Fumar (Dulera 200 Mcg/5 Mcg Inhaler) 2 puff INH BID-RT [facility] Tiotropium [place] (Spiriva Handihaler) 18 mcg INH DAILY-RT [facility] - Allergies Allergies/Adverse Reactions: Allergies Allergy/AdvReac Type Severity Reaction Status Date / Time codeine Allergy Verified 06/20/18 09:46 Pulmonology Consult: PE - Physical Exam Deviation from normal: increased work of breathing HEENT: moist MMs Cardiovascular: no significant murmur Deviation from normal: irregularly irregular rhythm Respiratory: clear to auscultation anteriorly, accessory muscle use. negative: rhonchi, wheezes Gastrointestinal: soft, non-tender, no distention, positive bowel sounds Musculoskeletal: no edema, pulses present Neurological: non-focal, moves all 4 limbs Psychiatric: A&O x 3 Skin: no rash, cap refill <2 seconds Pulmonology Consult: A/P - Time Time: 50% of the time was spent in coordination of care (as documented) at patient's floor/unit and/or counseling patient. Time with Patient: greater than 50 minutes - Plan Plan: # COPD exacerbation - CXR ordered - IV methypred, duonebs, augmentin - titrate down O2 as tolerated - Wells score: 1, check d-dimer # acute on chronic dCHF - Lasix IV 20mg daily - crackles on lung exam - consult Dr. Barakat, was scheduled for outpt ablation - check bnp # Suspect CHRISTEN - will need sleep study - sleep awakeningsx2 with SOB - stopped PPI in November, cannot rule out aspiration - will switch to augmentin to cover anaerobes - suspect she would benefit from home CPAP # a fib - continue multaq, diltiazem - goes in and out of sinus rhythm # HTN - home meds # Hypothyroidism - home meds # Hx of colon cancer Fluids: none Diet: regular Code: full PPx: lovenox Dispo: > 2days <Gómez Chen - Last Filed: 07/01/18 21:55> Pulmonology Consult: HPI - History of Present Illness HPI: LUCYVICKIE NASCIMENTO is a 72 year-old F Pulmonology Consult: Meds - Medications Medications: Current Medications Acetaminophen (Tylenol) 650 mg PO Q4H PRN PRN Reason: Headache/Fever or Pain Last Admin: 07/01/18 19:14 Dose: 650 mg Albuterol/Ipratropium (Duoneb) 3 ml NEB [id number] PRN PRN Reason: SOB &/or Wheezing Amoxicillin/Clavulanate Potassium (Augmentin) 875 mg PO Q12HR [facility] Last Admin: 07/01/18 19:14 Dose: 875 mg Diltiazem HCl (Cardizem Cd) 240 mg PO DAILY [facility] Dronedarone (Multaq) 400 mg PO BID-WM [facility] Last Admin: 07/01/18 19:15 Dose: 400 mg Enoxaparin Sodium (Lovenox) 40 mg SC 0900 [facility] Furosemide (Lasix) 20 mg SLOW IVP DAILY [facility] Ipratropium [place] (Atrovent) 2.5 ml NEB [id number] [facility] Last Admin: 07/01/18 18:11 Dose: Not Given Pantoprazole Sodium (Protonix) 40 mg PO DAILY [facility] Prednisone (Prednisone) 40 mg PO QAM-WM [facility] Pulmonology Consult: A/P - Time Time: 50% of the time was spent in coordination of care (as documented) at patient's floor/unit and/or counseling patient. Attending Addendum - Attending Addendum Date/Time: 07/01/182153 I personally evaluated the patient and discussed the management with Dr. Francis. I agree with the History, Examination, Assessment and Plan documented above with any addition or exceptions noted below. 70 minutes have been devoted to this patient in various activities. I personally reviewed all imaging studies and laboratory data noted within this document. For 50% of this time, I was interacting with the patient at bedside or coordinating care with the care team. For the remainder of the time, I was immediately available to the patient in the hospital unit.
[2018-07-01 11:26] VITALS: BMI 20.9
--- NOTE | 2018-07-01 12:22 | RAD ---
CHEST 1 VIEW: Date: 07/01/18 HISTORY: Dyspnea. COMPARISON: 06/20/18. FINDINGS: Cardiac silhouette is magnified and upper limits of normal in size. Pulmonary vasculature also upper limits of normal. Mediastinum is midline. Lungs remain hyperinflated. No lobar consolidation or evide nce of pneumothorax. junior web designer leads overlie the chest. IMPRESSION: Borderline pulmonary vascular congestion, pulmonary hyperinflation, and other findings are stable. POS: [facility]
[2018-07-01] MEDS ORDERED: predniSONE 20 MG TAB PO SCH (13:30)
[2018-07-01] MEDS ORDERED: Dronedarone HCl 400 MG TAB PO SCH (13:30)
[2018-07-01] MEDS ORDERED: Furosemide 20 MG/2 ML VIAL SLOW IVP SCH (13:30)
[2018-07-01] MEDS ORDERED: Levalbuterol HCl 0.63 MG/3 ML NEB NEB SCH (15:00)
[2018-07-01] MEDS: Ipratropium Bromide 2.5 ml Neb NEB SCH ×3 (15:32→21:30)
--- NOTE | 2018-07-01 17:34 | PRG ---
DATE OF SERVICE: 07/01/2018 SUBJECTIVE: Ms. Rojas was once again admitted to the hospital for shortness of breath, COPD exacerb ation and concern for congestive heart failure. She was last seen with followup note on 06/25/2018. Since that time, she has been scheduled for an outpatient redo-pulmonary venous isolation ablation p rocedure that is currently scheduled for next week, Saturday, the at [facility] in [facility]. Ms. Rojas has previously undergone extensive ablation for atrial fibrillation and has had mul tiple early recurrences of her arrhythmia, but has required multiple attempts with multiple antiarrhy thmic agents for suppression. She has had briefly been on amiodarone, but due to her COPD, this was stopped in favor of Multaq. This has offered fairly good control and she underwent successful cardio version last week and was discharged in sinus rhythm. She will occasionally have brief paroxysmal ep isodes of atrial fibrillation, but is largely maintaining sinus rhythm. That being said, yesterday w hen she woke up, she was having extreme shortness of breath and dyspnea and eventually ended up prese nting to the Emergency Room and was transferred to [place] for further evaluation and care. Curre ntly, she is still very short of breath and dyspneic even at rest and upright. She is on oxygen 2 li ters. She denies any heart racing, palpitations, chest pain or pressure, syncope, near syncope, stro ke or stroke-like symptoms. She is on Eliquis for stroke prophylaxis. OBJECTIVE: VITAL SIGNS: Most recent vital signs heart rate is 63, respirations 28, oxygen saturation is 94% on 2 liters nasal cannula. Blood pressure is 135/56. GENERAL: Ms. Rojas is alert and oriented. She is in mild distress and short of breath even at rest while seated upright in bed. HEENT: She is normocephalic, atraumatic. Sclerae are anicteric. EOMs are intact. Oral mucosa is m oist and pink. NECK: Supple. Positive jugular venous distention. PULMONARY: Her lungs are coarse with mild crackles in the left lower lobe, otherwise clear to auscul tation throughout. Respirations are rapid and somewhat labored. CARDIOVASCULAR: Heart rate is regularly regular with occasional PACs and brief PAT runs by review of telemetry. EXTREMITIES: Warm and dry to touch without clubbing, cyanosis or edema. ABDOMEN: Positive bowel sounds are heard throughout. There is no hepatosplenomegaly. Abdomen soft, nontender without palpable masses. Hepatojugular reflux is positive. NEUROLOGIC: Examination of cranial nerves II-XII grossly intact and nonfocal. Review of telemetry and EKGs reveals a normal sinus rhythm with occasional atrial ectopy and consiste ntly controlled rates with ventricular rates in the 70s. LABORATORY DATA: D-dimer 0.37. BNP 651. Troponin negative. ASSESSMENT: 1. Chronic obstructive pulmonary disease exacerbation. 2. Mild congestive heart failure. 3. History of paroxysmal atrial fibrillation, status post recent ablation, scheduled for redo-ablati on in 8 days, currently on Multaq for arrhythmia suppression. 4. Oral anticoagulation on Eliquis. RECOMMENDATIONS: At this time, gentle diuresis is recommended to optimize fluid status and respirato ry status. At this point, it is not entirely clear the origin of her fluid whether it is congestive heart failure versus pulmonary disease and etiology. If this is truly heart failure, then we will ne ed to stop Multaq and consider Dofetilide for arrhythmia suppression versus rate control in the inter im before her redo ablation. 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 In the meantime, we will continue the Eliquis for stroke prophylaxis and continue Mul taq at this time. Her BNP is slightly elevated, but not significantly. Thank you for allowing us to participate in care of this patient. We will continue to follow with he r hospital stay. DICTATED BY: CHUY Padilla
[2018-07-01] MEDS ORDERED: Mometasone/Formoterol 120 PUFF INHALER INH SCH (18:30)
[2018-07-01] MEDS: Amoxicillin/Potassium Clav 875 MG TAB PO SCH (19:14)
[2018-07-01] MEDS: Acetaminophen 325 MG TAB PO PRN ×2 (19:14→23:43)
[2018-07-01] MEDS: Dronedarone HCl 400 MG TAB PO SCH (19:15)
[2018-07-02] MEDS: Ipratropium Bromide 2.5 ml Neb NEB SCH ×3 (02:30→13:39)
[2018-07-02 04:44] LABS: Anion Gap 13 mmol/L (10-20); BUN (Urea Nitrogen) 29 mg/dL (9.8-20.1); Calc. Creatinine Clearance 53 mL/min (70-130); Calcium 9.6 mg/dL (7.8-10.44); Carbon Dioxide 27 mmol/L (23-31); Chloride 99 mmol/L (98-107); Estimated GFR-MDRD 58; Glucose 142 mg/dL (83-110); Potassium 4.5 mmol/L (3.5-5.1); Sodium 134 mmol/L (136-145)
[2018-07-02 05:02] LABS: Hemoglobin 11.5 g/dL (12.0-16.0); Mean Corpuscular HGB CONC 33.6 g/dL (32.0-36.0); Mean Corpuscular Hemoglobin 31.9 pg (27.0-31.0); Mean Platelet Volume 8.4 fL (7.4-10.4); Platelet Count 284 thou/uL (130-400); RBC Distribution Width 14.7 % (11.5-14.5); Red Blood Cell (RBC) Count 3.59 mill/uL (4.20-5.40); White Blood Cell (WBC) Count 21.7 thou/uL (4.8-10.8)
[2018-07-02 05:03] LABS: Band 19 % (5-11); Lymphocytes 2 % (21-51); MDiff Complete? YES; Monocytes 6 % (0-10); Neutrophil 73 % (42-75)
[2018-07-02] MEDS ORDERED: Spiriva 18 MCG CAP (Box of 5 Caps) INH SCH (07:00)
--- NOTE | 2018-07-02 08:16 | PDOC.PN ---
- Subjective Encounter Start Date: 07/02/18 Encounter Start Time: 08:14 Subjective: required BIPAP 4 hrs during nite. comfortable on NC at moment - Objective Resuscitation Status: Resuscitation Status FULL:Full Resuscitation MAR Reviewed: Yes Vital Signs & Weight: Vital Signs (12 hours) Temp Pulse Resp BP Pulse Ox 07/02/18 07:29 97.8 F 72 32 H 134/61 95 07/02/18 06:54 94 L 07/02/18 06:51 71 16 93 L 07/02/18 04:00 97.0 F L 70 24 H 112/50 L 94 L 07/02/18 00:00 97.0 F L 73 25 H 142/55 H 93 L Weight Weight 135 lb 7 oz I&O: 07/01/18 07/02/18 07/03/18 06:59 06:59 06:59 Intake Total 1030 Output Total 1075 Balance -45 Result Diagrams: 07/02/18 03:27 07/02/18 03:27 Phys Exam - Physical Examination Neck: no JVD hyperresonant , decreased BS, scant post basilar rales Cardiovascular: irregular 2/6 sys murmur Gastrointestinal: soft, positive bowel sounds Musculoskeletal: no edema Dx/Plan (1) Atrial fibrillation Code(s): I48.91 - UNSPECIFIED ATRIAL FIBRILLATION Status: Acute (2) COPD exacerbation Code(s): J44.1 - CHRONIC OBSTRUCTIVE PULMONARY DISEASE W (ACUTE) EXACERBATION Status: Acute Comment: Improved. On Pred 40 and Omnicef Po. (3) Diastolic CHF Code(s): I50.30 - UNSPECIFIED DIASTOLIC (CONGESTIVE) HEART FAILURE Status: Chronic Qualifiers: Heart failure chronicity: chronic Qualified Code(s): I50.32 - Chronic diastolic (congestive) heart failure Comment: BNP 700, was 1000 earlier in the year (4) HTN (hypertension) Code(s): I10 - ESSENTIAL (PRIMARY) HYPERTENSION Status: Chronic Qualifiers: (5) Hypothyroidism Code(s): E03.9 - HYPOTHYROIDISM, UNSPECIFIED Status: Chronic Qualifiers: Qualified Code(s): E03.9 - Hypothyroidism, unspecified - Plan cont O2, nebs, po steroids,etc -: maintain in IMCU until 24 hrs off bipap -: cont multaq, diltiazem, lasix * .
[2018-07-02] MEDS: Dronedarone HCl 400 MG TAB PO SCH ×2 (08:55→17:25)
[2018-07-02] MEDS: Acetaminophen 325 MG TAB PO PRN ×3 (08:56→23:26)
[2018-07-02] MEDS: Amoxicillin/Potassium Clav 875 MG TAB PO SCH ×2 (08:56→21:02)
[2018-07-02] MEDS: predniSONE 20 MG TAB PO SCH (08:56)
[2018-07-02] MEDS: Furosemide 20 MG/2 ML VIAL SLOW IVP SCH (08:58)
[2018-07-02] MEDS ORDERED: Enoxaparin Sodium 40 MG/0.4 ML SYRINGE SC SCH (09:00)
[2018-07-02] MEDS: Apixaban 5 MG TAB PO SCH ×2 (12:18→21:02)
--- NOTE | 2018-07-02 15:16 | CON ---
DATE OF CONSULTATION: 07/02/2018 HISTORY OF PRESENT ILLNESS: Patient is an unfortunate 72-year-old woman with severe COPD and a histo ry of atrial fibrillation who presented with increasing dyspnea. The patient previously has a long h istory of tobacco abuse. She has been treated for severe COPD. She was seen in February of this year a nd underwent extensive ablation for atrial fibrillation. She represented with COPD and recurrent atr ial fibrillation in April of this year. She was also seen in May with dyspnea mild congestive heart failure. She was started on amiodarone. The patient has subsequently been switched to Multaq. The patient was in her usual state of health when she again developed increasing dyspnea. She reports hebert ving chest discomfort whenever she takes it with deep breath. PAST MEDICAL HISTORY: 1. COPD. 2. Atrial fibrillation. 3. Hypertension. 4. Congestive heart failure. 5. Mitral regurgitation. 6. Colon carcinoma. ALLERGIES: CODEINE. MEDICATIONS: See nursing list FAMILY HISTORY: Positive family history of atrial fibrillation. SOCIAL HISTORY: Former smoker. PHYSICAL EXAMINATION GENERAL: Ill-appearing woman in mild distress. VITAL SIGNS: Blood pressure 113/51. NECK: Showed no jugular venous distention. LUNGS: Have coarse breath sounds bilateral. HEART: Regular rate and rhythm, normal S1, S2, no murmurs. ABDOMEN: Nondistended. EXTREMITIES: Showed no edema. VASCULAR: Radial pulses 2+. LABORATORY DATA AND IMAGING DATA: Revealed her to have her white blood count 9.4, hemoglobin 12.6, h ematocrit 36.8 and platelets 268. Sodium is 135, potassium 3.9, chloride 101, bicarbonate 25, BUN 30 , creatinine is 0.78. BNP was 651. Her chest x-ray revealed her to have pulmonary vascular redistri bution which showed normal heart size with pulmonary vascular redistribution. IMPRESSION: 1. Chronic obstructive pulmonary disease. 2. Congestive heart failure secondary to diastolic dysfunction. 3. History of paroxysmal atrial fibrillation. 4. Mitral regurgitation. 5. Hypertension. This patient presents with chronic obstructive pulmonary disease exacerbation and mild congestive hea rt failure. The patient is being diuresed with IV Lasix. From a cardiac standpoint, hopefully she c an be taken off Multaq since it is not recommended in a patient with congestive heart failure. She i s scheduled to possibly undergo another ablation. We will follow this patient through [facility].
[2018-07-02] MEDS ORDERED: Levalbuterol HCl 0.63 MG/3 ML NEB NEB PRN (15:39)
[2018-07-02] MEDS ORDERED: Furosemide 20 MG/2 ML VIAL SLOW IVP SCH (15:45)
--- NOTE | 2018-07-02 16:09 | PDOC.CTH ---
<Adry Santana - Last Filed: 07/02/18 16:04> Cardiology Progress Note - Subjective EP progress note: Patient seen and evaluated. No new cardiac concerns or complaints. Wore bi level x4 hrs over HS. Breathing much easier today. - ROS shortness of breath - Objective Vital Signs Temp Pulse Resp BP BP Pulse Ox 07/02/18 15:51 97.4 F L 62 28 H 132/63 98 07/02/18 13:39 72 28 H 99 07/02/18 11:20 97.6 F 70 24 H 112/48 L 96 07/02/18 10:05 71 30 H 100 07/02/18 08:55 72 108/72 07/02/18 08:00 97.8 F 72 30 H 96 07/02/18 07:29 97.8 F 72 32 H 134/61 95 07/02/18 06:54 94 L 07/02/18 06:51 71 16 93 L Weight 135 lb 7 oz 07/01/18 07/02/18 07/03/18 06:59 06:59 06:59 Intake Total 1030 Output Total 1075 Balance -45 - Physical Examination General/Neuro: alert & oriented x3, NAD Neck: carotid US brisk, no JVD present Lungs: unlabored respirations, other: (fine cracked to LLL) Heart: PMI normal, RRR Abdomen: NT/ND, soft - Telemetry Telemetry Rhythm: NSR - Labs Result Diagrams: 07/02/18 03:27 07/02/18 03:27 Troponin/CKMB CK-MB (CK-2) 1.7 ng/mL (0-6.6) 07/01/18 08:48 Troponin I 0.010 ng/mL (< 0.028) 07/01/18 08:48 - Assessment/Plan 1. Persistent atrial fibrillation/atypical flutter. Now well suppressed on Multaq and maintaining NSR without any AF/RVR episodes on tele. Scheduled for redo ablation next week with Dr. Mckay. Hopefully her respiratory status can stabilize enough to continue as scheduled. 2. CHF- continued gentle diuresing. resolving 3. COPD exacerbation- resolving. breathing easier today. 4. Elevated chads vasc: 2 (advancing age, female gender) on Eliquis. continue, especially as patient has upcoming ablation in the near future. Continue Multaq and eliquis. Currently stable from EP perspective. <Luis Jaeger - Last Filed: 07/02/18 18:00> Cardiology Progress Note - Objective Vital Signs Temp Pulse Resp BP BP Pulse Ox 07/02/18 15:51 97.4 F L 62 28 H 132/63 98 07/02/18 13:39 72 28 H 99 07/02/18 11:20 97.6 F 70 24 H 112/48 L 96 07/02/18 10:05 71 30 H 100 07/02/18 08:55 72 108/72 07/02/18 08:00 97.8 F 72 30 H 96 07/02/18 07:29 97.8 F 72 32 H 134/61 95 07/02/18 06:54 94 L 07/02/18 06:51 71 16 93 L Weight 135 lb 7 oz 07/01/18 07/02/18 07/03/18 06:59 06:59 06:59 Intake Total 1030 860 Output Total 1075 1 Balance -45 859 - Labs Result Diagrams: 07/02/18 03:27 07/02/18 03:27 Troponin/CKMB CK-MB (CK-2) 1.7 ng/mL (0-6.6) 07/01/18 08:48 Troponin I 0.010 ng/mL (< 0.028) 07/01/18 08:48 Attending Addendum - Attending Addendum Date/Time: 07/02/18 1800 I personally evaluated the patient and discussed the management with Ms Santana. I agree with the History, Examination, Assessment and Plan documented above with any addition or exceptions noted below.
--- NOTE | 2018-07-02 16:12 | PRG ---
DATE OF SERVICE: 07/02/2018 SERVICE: Pulmonary Medicine. INTERVAL HISTORY: The patient is doing fine from a respiratory standpoint. She is breathing comfort ably this morning. I tried to give her BiPAP break briefly. That being said, she did not tolerate f or very long. She tolerated the Lasix yesterday evening. Last night it was better than the one befo re. This morning, she had another dose of Lasix, but has yet to fully kick in. PHYSICAL EXAMINATION: VITAL SIGNS: Afebrile, pulse 70, blood pressure 112/48, respirations 24, saturation 96% on 2 liters nasal cannula. GENERAL: The patient is awake, alert, no apparent distress. LUNGS: Decent air entry. Dependent crackles still remain with forced exhalation, she has wheezing, but otherwise with tidal respiration there is none of that. HEENT: Normocephalic, atraumatic. HEART: Normal rate and regular. ABDOMEN: Soft, nontender, nondistended. Bowel sounds are positive. MUSCULOSKELETAL: No cyanosis or clubbing. No pitting in the bilateral lower extremities. NEUROLOGIC: Grossly nonfocal. LABORATORY DATA: WBC 21.7, D-dimer 0.36. Basic metabolic profile is otherwise unremarkable. BNP 65 1, troponin negative x1. Blood cultures x2 remain negative. ASSESSMENT: 1. Acute hypoxic respiratory failure. 2. Chronic obstructive pulmonary disease with acute exacerbation. 3. Acute on chronic diastolic heart failure. 4. Obstructive sleep apnea, suspected. 5. Atrial fibrillation, paroxysmal. DISCUSSION AND PLAN: The patient is doing absolutely fine from a respiratory standpoint. We are goi ng to increase BiPAP breaks as tolerated. We will get her back on her Eliquis and adjust her nebuliz ed medications slightly. We are going to increase her Lasix to twice daily to see if we can get her closer to euvolemia which we are approaching. She will need to be evaluated for obstructive sleep ap fanny in the outpatient setting. We will make certain she returns to clinic to see Dr. Sandra to facilit ate this.
--- NOTE | 2018-07-02 17:23 | PDOC.CTH ---
<Tiesha Guido - Last Filed: 07/02/18 17:25> Cardiology Progress Note - Subjective The pt seen and examined. No overnight events. No cardiac complaints. She is breathing well. - Objective Vital Signs Temp Pulse Resp BP BP Pulse Ox 07/02/18 15:51 97.4 F L 62 28 H 132/63 98 07/02/18 13:39 72 28 H 99 07/02/18 11:20 97.6 F 70 24 H 112/48 L 96 07/02/18 10:05 71 30 H 100 07/02/18 08:55 72 108/72 07/02/18 08:00 97.8 F 72 30 H 96 07/02/18 07:29 97.8 F 72 32 H 134/61 95 07/02/18 06:54 94 L 07/02/18 06:51 71 16 93 L Weight 135 lb 7 oz 07/01/18 07/02/18 07/03/18 06:59 06:59 06:59 Intake Total 1030 Output Total 1075 Balance -45 - Physical Examination General/Neuro: alert & oriented x3 Neck: no JVD present Lungs: other: (diminished at bases) Heart: RRR Abdomen: soft Extremities: other: (No edema) - Telemetry Telemetry Rhythm: SR - Labs Result Diagrams: 07/02/18 03:27 07/02/18 03:27 Troponin/CKMB CK-MB (CK-2) 1.7 ng/mL (0-6.6) 07/01/18 08:48 Troponin I 0.010 ng/mL (< 0.028) 07/01/18 08:48 - Assessment/Plan 1. Acute on Chronic Diastolic HF - stable with Lasix 20mg IV daily; NO BBlocker due to hx of severe COPD. May start BRIA/ARB with stable VS. 2. COPD exacerbation - on Bipap for 4 hours last night. Stable with NC at this time. 3. Persistent Afib - Remains in SR with Multaq and Diltiazem. On Eliquis 5mg BID for chads vasc: 2 (advancing age, female gender). Scheduled for redo ablation next week by Dr Mckay in [place], [place]. 4. HTN - stable 5. Hypothyroidism - managed by PCP 6. Suspect CHRISTEN - managed by separator operator. May have sleep study as outpt. 7. Hx of colon Cancer MAR reviewed Review of Systems - Review of Systems Constitutional: reports: no symptoms reported EENTM: reports: no symptoms reported Respiratory: reports: see HPI Cardiac (ROS): reports: no symptoms reported ABD/GI: reports: no symptoms reported : reports: no symptoms reported Musculoskeletal: reports: no symptoms reported <Gustavo Barakat - Last Filed: 07/02/18 17:49> Cardiology Progress Note - Objective Vital Signs Temp Pulse Resp BP BP Pulse Ox 07/02/18 15:51 97.4 F L 62 28 H 132/63 98 07/02/18 13:39 72 28 H 99 07/02/18 11:20 97.6 F 70 24 H 112/48 L 96 07/02/18 10:05 71 30 H 100 07/02/18 08:55 72 108/72 07/02/18 08:00 97.8 F 72 30 H 96 07/02/18 07:29 97.8 F 72 32 H 134/61 95 07/02/18 06:54 94 L 07/02/18 06:51 71 16 93 L Weight 135 lb 7 oz 07/01/18 07/02/18 07/03/18 06:59 06:59 06:59 Intake Total 1030 860 Output Total 1075 1 Balance -45 859 - Labs Result Diagrams: 07/02/18 03:27 07/02/18 03:27 Troponin/CKMB CK-MB (CK-2) 1.7 ng/mL (0-6.6) 07/01/18 08:48 Troponin I 0.010 ng/mL (< 0.028) 07/01/18 08:48 - Assessment/Plan Pt. seen and eval. by me. I agree with the A/P by the CERTIFIED VETERINARY TECHNICIAN. Her worst problems seem to be respiratory in nature. I suspect she will improve quickly with the steroids.
[2018-07-02] MEDS ORDERED: Ondansetron HCl/PF 4 MG/2 ML Vial SLOW IVP PRN (20:08)
[2018-07-03 05:00] LABS: Anion Gap 13 mmol/L (10-20); BUN (Urea Nitrogen) 32 mg/dL (9.8-20.1); Calc. Creatinine Clearance 52 mL/min (70-130); Calcium 9.5 mg/dL (7.8-10.44); Carbon Dioxide 27 mmol/L (23-31); Chloride 99 mmol/L (98-107); Estimated GFR-MDRD 58; Glucose 116 mg/dL (83-110); Magnesium 2.2 mg/dL (1.6-2.6); Phosphorus 4.6 mg/dL (2.3-4.7); Potassium 4.6 mmol/L (3.5-5.1); Sodium 134 mmol/L (136-145)
[2018-07-03 05:51] LABS: Band 6 % (5-11); Eosinophils 2 % (0-10); Hemoglobin 10.7 g/dL (12.0-16.0); Lymphocytes 2 % (21-51); MDiff Complete? YES; Mean Corpuscular HGB CONC 33.4 g/dL (32.0-36.0); Mean Corpuscular Hemoglobin 31.7 pg (27.0-31.0); Mean Platelet Volume 8.2 fL (7.4-10.4); Monocytes 6 % (0-10); Neutrophil 84 % (42-75); PLT Morphology Comment Appears Adequate; Platelet Count 293 thou/uL (130-400); RBC Distribution Width 15.3 % (11.5-14.5); Red Blood Cell (RBC) Count 3.39 mill/uL (4.20-5.40); White Blood Cell (WBC) Count 22.2 thou/uL (4.8-10.8)
--- NOTE | 2018-07-03 07:33 | PDOC.PN ---
- Subjective Encounter Start Date: 07/03/18 Encounter Start Time: 07:32 Subjective: anxious, on bipap 2 hrs last nite - Objective Resuscitation Status: Resuscitation Status FULL:Full Resuscitation MAR Reviewed: Yes Vital Signs & Weight: Vital Signs (12 hours) Temp Pulse Resp BP Pulse Ox 07/03/18 03:58 98.8 F 60 18 129/62 94 L 07/03/18 00:15 97.6 F 57 L 14 117/57 L 93 L 07/02/18 20:00 97.5 F L 75 16 104/51 L 93 L Weight Weight 137 lb 3.2 oz I&O: 07/02/18 07/03/18 07/04/18 06:59 06:59 06:59 Intake Total 1030 1210 Output Total 1075 251 Balance -45 959 Result Diagrams: 07/03/18 04:40 07/03/18 04:40 Phys Exam - Physical Examination Neck: no JVD decreased BS, clear Cardiovascular: RRR, no significant murmur Gastrointestinal: soft, positive bowel sounds Musculoskeletal: no edema Dx/Plan (1) Atrial fibrillation Code(s): I48.91 - UNSPECIFIED ATRIAL FIBRILLATION Status: Acute (2) COPD exacerbation Code(s): J44.1 - CHRONIC OBSTRUCTIVE PULMONARY DISEASE W (ACUTE) EXACERBATION Status: Acute Comment: Improved. On Pred 40 and Omnicef Po. (3) Diastolic CHF Code(s): I50.30 - UNSPECIFIED DIASTOLIC (CONGESTIVE) HEART FAILURE Status: Chronic Qualifiers: Heart failure chronicity: chronic Qualified Code(s): I50.32 - Chronic diastolic (congestive) heart failure Comment: BNP 700, was 1000 earlier in the year (4) HTN (hypertension) Code(s): I10 - ESSENTIAL (PRIMARY) HYPERTENSION Status: Chronic Qualifiers: (5) Hypothyroidism Code(s): E03.9 - HYPOTHYROIDISM, UNSPECIFIED Status: Chronic Qualifiers: - Plan cont nebs, steroids, O2 , etc -: chf appears compensated, still in RSR -: suspect significant fcl overlay -: 2v cxr * .
--- NOTE | 2018-07-03 08:36 | RAD ---
CHEST TWO VIEWS: INDICATIONS: COPD. CHF. COMPARISON: 07/01/2018 FINDINGS: There is enlargement of the cardiac silhouette and bibasilar densities, indicative of pleural fluid w ith adjacent atelectasis, left greater than right. Interstitial prominence of each lung is again see n. No significant interval change otherwise depicted. IMPRESSION: 1. Evidence of congestive heart failure with bilateral pleural fluid, left greater than right. 2. Vascular congestion/pulmonary edema also present. Recommend continued followup. POS: MIRA
[2018-07-03] MEDS: Dronedarone HCl 400 MG TAB PO SCH ×2 (09:14→17:12)
[2018-07-03] MEDS: Furosemide 20 MG/2 ML VIAL SLOW IVP SCH (09:16)
[2018-07-03] MEDS: Apixaban 5 MG TAB PO SCH ×2 (09:16→20:49)
[2018-07-03] MEDS: Amoxicillin/Potassium Clav 875 MG TAB PO SCH ×2 (09:16→20:49)
[2018-07-03] MEDS: predniSONE 20 MG TAB PO SCH (09:16)
[2018-07-03] MEDS ORDERED: Furosemide 20 MG/2 ML VIAL SLOW IVP SCH ×2 (11:45→15:00)
--- NOTE | 2018-07-03 11:54 | PRG ---
DATE OF SERVICE: 07/03/2018 SERVICE: Pulmonary Medicine. INTERVAL HISTORY: The patient is actually breathing a little bit better this morning. She only used her BiPAP last night for 2 hours. Otherwise, there has been no interval change to her condition. She continues to have pursed lip breathing. That being said, whenever I talked to her, she appears to have increasing dyspnea. PHYSICAL EXAMINATION: VITAL SIGNS: Afebrile, pulse 69, blood pressure 130/56, respirations 24, saturation 93% on 3 liters nasal cannula. GENERAL: The patient is awake, alert, in no apparent distress. LUNGS: There is improving air entry. There is a prolonged expiratory phase with forced exhalation, there is a wheezing present. That being said, bibasilar crackles still predominate. HEART: Normal rate, regular. ABDOMEN: Soft, nontender, nondistended. Bowel sounds are positive. MUSCULOSKELETAL: No cyanosis or clubbing. There is no pitting in the bilateral lower extremities. NEUROLOGIC: Grossly nonfocal. LABORATORY DATA: WBC 22.2, hemoglobin 10.7, platelets 293,000. Neutrophil count is 84% with a down trending band count of 6%. D-dimer 0.37. Basic metabolic profile is essentially unremarkable. Her bicarbonate is still 27. BNP 651 previously. Blood cultures x2 are unremarkable. IMAGING: Chest x-ray demonstrates bilateral pleural fluid is present. The left side is greater than the right side. Vascular congestion and pulmonary edema is also present. ASSESSMENT: 1. Acute hypoxic respiratory failure, improving. 2. Chronic obstructive pulmonary disease with acute exacerbation. 3. Acute on chronic diastolic heart failure. 4. Obstructive sleep apnea, suspected. 5. Atrial fibrillation, paroxysmal. 6. Pleural effusions, bilateral, left greater than right. DISCUSSION AND PLAN: We are going to continue to diurese the patient down to euvolemia. She has been able to tolerate breaks. I will look at her chest with an ultrasound. If I see a very significant collection of fluid, thoracentesis will be considered. This will be for both diagnostic and therapeutic purposes. I will put her on a p.o. antibiotic for about 5 days just in case there is an atypical infectious process that belies this admission. Otherwise, supportive care including antibiotics, nebulized medications will be continued. I will repeat a dose of Lasix into the afternoon. If she is looking well into the afternoon, she can be considered for transition to the floor. In the meantime, we will get her up into a chair, have her moved with physical therapy. BAM
--- NOTE | 2018-07-03 15:33 | PDOC.CTH ---
Cardiology Progress Note - Subjective EP progress note: Patient seen and evaluated. No new cardiac concerns or complaints today. Denies heart racing, palpitations, chest pain/pressure, dizziness, or passing out. No stroke like symptoms. - Objective Vital Signs Temp Pulse Resp BP BP Pulse Ox 07/03/18 11:46 98.1 F 123/70 36 L 07/03/18 09:19 69 117/54 L 07/03/18 08:00 97.8 F 69 24 H 93 L 07/03/18 07:31 97.8 F 69 24 H 130/56 L 93 L 07/03/18 03:58 98.8 F 60 18 129/62 94 L Weight 137 lb 3.2 oz 07/02/18 07/03/18 07/04/18 06:59 06:59 06:59 Intake Total 1030 1210 Output Total 1075 251 Balance -45 959 - Physical Examination General/Neuro: alert & oriented x3, NAD Neck: carotid US brisk, no JVD present Lungs: CTA, other: (slightly labored, improving ) Heart: PMI normal, RRR Abdomen: no HSM, NT/ND, soft - Telemetry Telemetry Rhythm: SR - Labs Result Diagrams: 07/03/18 04:40 07/03/18 04:40 Troponin/CKMB CK-MB (CK-2) 1.7 ng/mL (0-6.6) 07/01/18 08:48 Troponin I 0.010 ng/mL (< 0.028) 07/01/18 08:48 - Assessment/Plan 1. Persistent atrial fibrillation/atypical flutter. adequate suppressed with Multaq and maintaining NSR without any AF/RVR episodes on tele. Scheduled for redo ablation next week with Dr. Mckay. Hopefully her respiratory status can stabilize enough to continue as scheduled. 2. CHF exacerbation- continue gentle diuresing. resolving. 3. COPD exacerbation- resolving. 4. Elevated chads vasc: 2 (advancing age, female gender) on Eliquis. continue, especially considering her upcoming ablation next week Continue Multaq and eliquis. Currently stable from EP perspective. Will consider stopping Multaq if worsening heart failure is seen.
--- NOTE | 2018-07-03 16:53 | PDOC.CTH ---
Cardiology Progress Note - Subjective The pt seen and examined. No overnight events. No cardiac complaints. She stated she can breath better since her Prednisone was resumed from today. Her HR was back to Aflutter since 1000 today. - Objective Vital Signs Temp Pulse Resp BP BP Pulse Ox 07/03/18 16:18 97.6 F 93 24 H 107/62 90 L 07/03/18 11:46 98.1 F 123/70 36 L 07/03/18 09:19 69 117/54 L 07/03/18 08:00 97.8 F 69 24 H 93 L 07/03/18 07:31 97.8 F 69 24 H 130/56 L 93 L Weight 137 lb 3.2 oz 07/02/18 07/03/18 07/04/18 06:59 06:59 06:59 Intake Total 1030 1210 Output Total 1075 251 Balance -45 959 - Physical Examination General/Neuro: alert & oriented x3 Neck: no JVD present Lungs: other: (coarses and diminished at bases) Heart: RRR Abdomen: soft Extremities: other: (No edemas) - Telemetry Telemetry Rhythm: Aflutter 90s - Labs Result Diagrams: 07/03/18 04:40 07/03/18 04:40 Troponin/CKMB CK-MB (CK-2) 1.7 ng/mL (0-6.6) 07/01/18 08:48 Troponin I 0.010 ng/mL (< 0.028) 07/01/18 08:48 - Assessment/Plan 1. Acute on Chronic Diastolic HF - her SOB has been improving with Prednisone and Lasix IV which was increased to 40mg qd from today. NO BBlocker due to hx of severe COPD. May start BRIA/ARB with stable VS. 2. COPD exacerbation - on Bipap for 4 hours last night. Stable with NC at this time. 3. Persistent Afib/Aflutter - Back to Aflutter since 1000 on 07/03/18. Well controlled HR with Multaq and Diltiazem. On Eliquis 5mg BID for chads vasc: 2 ( advancing age, female gender). Scheduled for redo ablation next week by [facility] Mck[facility] in [facility] [place] if her resp. is stable. 4. HTN - stable 5. Hypothyroidism - managed by PCP 6. Suspect CHRISTEN - managed by corporate accountant. May have sleep study as outpt. 7. Hx of colon Cancer MAR reviewed Review of Systems - Review of Systems Constitutional: reports: weakness EENTM: reports: no symptoms reported Respiratory: reports: see HPI Cardiac (ROS): reports: no symptoms reported ABD/GI: reports: no symptoms reported : reports: no symptoms reported Musculoskeletal: reports: no symptoms reported Skin: reports: no symptoms reported Neurological: reports: no symptoms reported
[2018-07-03] MEDS: Acetaminophen 325 MG TAB PO PRN (20:49)
[2018-07-04 03:48] LABS: #Eosinphils 0.1 thou/uL (0.0-0.7); #Lymphocytes 1.2 thou/uL (1.20-3.40); #Monocytes 0.7 thou/uL (0.11-0.59); #Neutrophils 12.4 thou/uL (1.40-6.50); %Basophils 0.2 % (0.0-1.0); %Eosinophils 0.4 % (0.0-10.0); %Lymphocytes 8.6 % (21.0-51.0); %Monocytes 5.1 % (0.0-10.0); %Neutrophils 85.7 % (42.0-75.0); Hemoglobin 11.3 g/dL (12.0-16.0); Mean Corpuscular HGB CONC 34.5 g/dL (32.0-36.0); Mean Corpuscular Hemoglobin 32.6 pg (27.0-31.0); Mean Corpuscular Volume 94.4 fL (78.0-98.0); Mean Platelet Volume 8.2 fL (7.4-10.4); Platelet Count 294 thou/uL (130-400); RBC Distribution Width 14.8 % (11.5-14.5); Red Blood Cell (RBC) Count 3.48 mill/uL (4.20-5.40); White Blood Cell (WBC) Count 14.5 thou/uL (4.8-10.8)
[2018-07-04 03:57] LABS: Anion Gap 12 mmol/L (10-20); BUN (Urea Nitrogen) 28 mg/dL (9.8-20.1); Calc. Creatinine Clearance 57 mL/min (70-130); Calcium 9.6 mg/dL (7.8-10.44); Carbon Dioxide 32 mmol/L (23-31); Chloride 95 mmol/L (98-107); Estimated GFR-MDRD 65; Glucose 100 mg/dL (83-110); Potassium 3.8 mmol/L (3.5-5.1); Sodium 135 mmol/L (136-145)
[2018-07-04] MEDS: Amoxicillin/Potassium Clav 875 MG TAB PO SCH ×2 (08:17→22:10)
[2018-07-04] MEDS: Apixaban 5 MG TAB PO SCH ×2 (08:17→22:11)
[2018-07-04] MEDS: Dronedarone HCl 400 MG TAB PO SCH ×2 (08:18→17:40)
[2018-07-04] MEDS: predniSONE 20 MG TAB PO SCH (08:18)
[2018-07-04] MEDS: Furosemide 40 MG/4 ML VIAL SLOW IVP SCH (08:22)
--- NOTE | 2018-07-04 10:57 | PRG ---
DATE OF SERVICE: 07/04/2018 SERVICE: Pulmonary Medicine. INTERVAL HISTORY: The patient is doing great from a respiratory standpoint. She actually feels like her breathing is much improved. She does not have any chest pain or palpitations. She is coughing up brown and red phlegm. PHYSICAL EXAMINATION: VITAL SIGNS: Afebrile, pulse 64, blood pressure 115/56, respirations 17, saturation 93% on 2 liters nasal cannula. GENERAL: The patient is awake, alert, no apparent distress. LUNGS: Decent air entry. There is no prolonged expiratory phase. Dependent crackles are actually improved. There is a scattered wheezing with forced exhalation, she is moving air much better. HEART: Normal rate, regular. ABDOMEN: Soft, nontender, nondistended. Bowel sounds are positive. MUSCULOSKELETAL: No cyanosis or clubbing. There is no pitting in the bilateral lower extremities. NEUROLOGIC: Grossly nonfocal. LABORATORY DATA: WBC 14.5, hemoglobin 11.3, platelets 294,000. D-dimer 0.37. Creatinine 0.86, BUN 28. Anion gap 12, bicarbonate 32, chloride 95. Basic metabolic profile is otherwise unremarkable. Blood cultures x2 remain unremarkable. ASSESSMENT: 1. Acute hypoxic respiratory failure, resolving. 2. Chronic obstructive pulmonary disease with acute exacerbation, likely fluid induced. 3. Acute on chronic diastolic heart failure. 4. Obstructive sleep apnea, suspected. 5. Atrial fibrillation, paroxysmal. 6. Pleural effusions, bilateral, left greater than right. DISCUSSION AND PLAN: We are going to transition the patient to the telemetry unit and continue to diurese her down to euvolemia. I am going to repeat a chest x-ray in the morning. If the pleural effusions are getting smaller, we will leave them alone. If they are getting larger, a thoracentesis could be considered. We are empirically giving her an antibiotic for 5 days, but truth be told, I am not highly suspicious of an infectious process here. We will continue our mobilization efforts. BAM
--- NOTE | 2018-07-04 12:07 | PDOC.CTH ---
<Tiesha Guido - Last Filed: 07/04/18 12:05> Cardiology Progress Note - Subjective The pt seen and examined. No overnight events. No cardiac complaints. Her HR converted back to SR from Aflutter at 0500 on 07/04/18. - Objective Vital Signs Temp Pulse Resp BP BP Pulse Ox 07/04/18 11:06 98.0 F 64 22 H 109/56 L 95 07/04/18 08:18 63 112/53 L 07/04/18 08:00 98.1 F 64 17 93 L 07/04/18 07:27 98.1 F 64 17 115/56 L 93 L 07/04/18 03:45 98.4 F 116 H 18 104/67 93 L 07/04/18 00:55 93 L Weight 137 lb 7 oz 07/03/18 07/04/18 07/05/18 06:59 06:59 06:59 Intake Total 1210 1320 Output Total 251 3050 Balance 959 -1730 - Physical Examination General/Neuro: alert & oriented x3 Neck: no JVD present Lungs: other: (diminished at bases) Heart: RRR Abdomen: soft Extremities: other: - Telemetry Telemetry Rhythm: SR 60s - Labs Result Diagrams: 07/04/18 03:30 07/04/18 03:30 Troponin/CKMB CK-MB (CK-2) 1.7 ng/mL (0-6.6) 07/01/18 08:48 Troponin I 0.010 ng/mL (< 0.028) 07/01/18 08:48 - Assessment/Plan 1. Acute on Chronic Diastolic HF - her SOB has been improving with Prednisone and Lasix IV 40mg qd. NO BBlocker due to hx of severe COPD. May start BRIA/ARB with stable VS. 2. COPD exacerbation - on Bipap for 4 hours last night. Stable with NC at this time. 3. Persistent Afib/Aflutter - Converted back to SR from Aflutter at 0500 on 09/11. Well controlled HR with Multaq and Diltiazem. On Eliquis 5mg BID for chads vasc: 2 (advancing age, female gender). Scheduled for redo ablation next week by Dr Mckay in [facility] [place] if her resp. is stable. 4. HTN - stable 5. Hypothyroidism - managed by PCP 6. Suspect CHRISTEN - managed by industrial management teacher. May have sleep study as outpt. 7. Hx of colon Cancer MAR reviewed Review of Systems - Review of Systems Constitutional: reports: no symptoms reported EENTM: reports: no symptoms reported Respiratory: reports: see HPI Cardiac (ROS): reports: no symptoms reported ABD/GI: reports: no symptoms reported : reports: no symptoms reported Musculoskeletal: reports: no symptoms reported <Gustavo Barakat - Last Filed: 07/04/18 13:41> Cardiology Progress Note - Objective Vital Signs Temp Pulse Resp BP BP Pulse Ox 07/04/18 11:06 98.0 F 64 22 H 109/56 L 95 07/04/18 08:18 63 112/53 L 07/04/18 08:00 98.1 F 64 17 93 L 07/04/18 07:27 98.1 F 64 17 115/56 L 93 L 07/04/18 03:45 98.4 F 116 H 18 104/67 93 L Weight 137 lb 7 oz 07/03/18 07/04/18 07/05/18 06:59 06:59 06:59 Intake Total 1210 1320 Output Total 251 3050 Balance 959 -1730 - Labs Result Diagrams: 07/04/18 03:30 07/04/18 03:30 Troponin/CKMB CK-MB (CK-2) 1.7 ng/mL (0-6.6) 07/01/18 08:48 Troponin I 0.010 ng/mL (< 0.028) 07/01/18 08:48 - Assessment/Plan Pt. seen and eval. by me. She is feeling much better. I agree with the A/P by the BRICK TESTER. The plan is still for ablation next week. At this time she remains in NSR.
--- NOTE | 2018-07-04 14:34 | PDOC.CTH ---
Cardiology Progress Note - Subjective EP progress note: Stable overnight with Bilevel as needed. Breathing improving. Denies heart racing, palpitations, chest pain/pressure, stroke like symptoms, or passing out. no new cardiac concerns or complaints today. - Objective Vital Signs Temp Pulse Resp BP BP Pulse Ox 07/04/18 11:06 98.0 F 64 22 H 109/56 L 95 07/04/18 08:18 63 112/53 L 07/04/18 08:00 98.1 F 64 17 93 L 07/04/18 07:27 98.1 F 64 17 115/56 L 93 L 07/04/18 03:45 98.4 F 116 H 18 104/67 93 L Weight 137 lb 7 oz 07/03/18 07/04/18 07/05/18 06:59 06:59 06:59 Intake Total 1210 1320 Output Total 251 3050 Balance 959 -1730 - Physical Examination General/Neuro: alert & oriented x3, NAD Neck: carotid US brisk, no JVD present Lungs: CTA, other: (dyspnea resolving.) Heart: PMI normal, RRR Abdomen: no HSM, NT/ND, soft - Telemetry Telemetry Rhythm: NSR - Labs Result Diagrams: 07/04/18 03:30 07/04/18 03:30 Troponin/CKMB CK-MB (CK-2) 1.7 ng/mL (0-6.6) 07/01/18 08:48 Troponin I 0.010 ng/mL (< 0.028) 07/01/18 08:48 - Assessment/Plan 1. Persistent atrial fibrillation/atypical flutter. Fairly well suppressed with Multaq. Converted to flutter yesterday at 1100 and spontaneous back to NSR this AM. Scheduled for redo ablation next week with Dr. Mckay. Hopefully her respiratory status can stabilize enough to continue as scheduled. 2. CHF exacerbation- resolving. 3. COPD exacerbation- resolving. 4. Elevated chads vasc: 2 (advancing age, female gender) on Eliquis. continue, especially considering her upcoming ablation next week Continue current medication regiment of Multaq and eliquis. Currently stable from EP perspective. Will consider stopping Multaq if worsening heart failure is seen.
--- NOTE | 2018-07-04 20:52 | PDOC.PN ---
- Subjective Encounter Start Date: 07/04/18 Encounter Start Time: 13:55 Subjective: pt up in bed feel tired today - Objective Resuscitation Status: Resuscitation Status FULL:Full Resuscitation Vital Signs & Weight: Vital Signs (12 hours) Temp Pulse Pulse Pulse Resp BP BP 07/04/18 15:23 98.0 F 58 L 20 07/04/18 14:35 60 60 117/47 L 125/62 07/04/18 11:06 98.0 F 64 22 H BP Pulse Ox 07/04/18 15:23 125/62 94 L 07/04/18 14:35 07/04/18 11:06 109/56 L 95 Weight Weight 137 lb 7 oz I&O: 07/03/18 07/04/18 07/05/18 06:59 06:59 06:59 Intake Total 1210 1320 Output Total 251 3050 400 Balance 959 -9629 -400 Result Diagrams: 07/05/18 04:42 07/05/18 04:42 Phys Exam - Physical Examination HEENT: PERRLA, moist MMs, sclera anicteric, TM's clear, oral pharynx no lesions , 2+ tonsils Neck: no nodes, no JVD, supple, full ROM Respiratory: no wheezing, no rales, no rhonchi, wheezing present, clear to auscultation bilateral Cardiovascular: RRR, no significant murmur, no rub, gallop, irregular Gastrointestinal: soft, non-tender, no distention, positive bowel sounds Dx/Plan (1) COPD exacerbation Code(s): J44.1 - CHRONIC OBSTRUCTIVE PULMONARY DISEASE W (ACUTE) EXACERBATION Status: Acute Comment: Improved. On Pred 40 and Omnicef Po. (2) Atrial fibrillation Code(s): I48.91 - UNSPECIFIED ATRIAL FIBRILLATION Status: Acute (3) Hypothyroidism Code(s): E03.9 - HYPOTHYROIDISM, UNSPECIFIED Status: Chronic Qualifiers: (4) Diastolic CHF Code(s): I50.30 - UNSPECIFIED DIASTOLIC (CONGESTIVE) HEART FAILURE Status: Chronic Qualifiers: Heart failure chronicity: chronic Qualified Code(s): I50.32 - Chronic diastolic (congestive) heart failure Comment: BNP 700, was 1000 earlier in the year - Plan pt clinically improving, is off oxygen -: will continue abx and steroids -: possible ablation next week -: on ac * . Review of Systems - Review of Systems Respiratory: negative: Cough, Dry, Shortness of Breath, Hemoptysis, SOB with Excertion, Pleuritic Pain, Sputum, Wheezing Cardiovascular: negative: chest pain, palpitations, orthopnea, paroxysmal nocturnal dyspnea, edema, light headedness, other Gastrointestinal: negative: Nausea, Vomiting, Abdominal Pain, Diarrhea, Constipation, Melena, Hematochezia, Other Genitourinary: negative: Dysuria, Frequency, Incontinence, Hematuria, Retention , Other - Medications/Allergies Allergies/Adverse Reactions: Allergies Allergy/AdvReac Type Severity Reaction Status Date / Time codeine Allergy Verified 06/20/18 09:46 Medications: Current Medications Acetaminophen (Tylenol) 650 mg PO Q4H PRN PRN Reason: Headache/Fever or Pain Last Admin: 07/05/18 01:59 Dose: 650 mg Albuterol/Ipratropium (Duoneb) 3 ml NEB [id number] PRN PRN Reason: SOB &/or Wheezing Last Admin: 07/02/18 10:05 Dose: 3 ml Amoxicillin/Clavulanate Potassium (Augmentin) 875 mg PO Q12HR [facility] Stop: 07/08/18 21:01 Last Admin: 07/05/18 08:36 Dose: 875 mg Apixaban (Eliquis) 5 mg PO BID [facility] Last Admin: 07/05/18 08:35 Dose: 5 mg Diltiazem HCl (Cardizem Cd) 240 mg PO DAILY [facility] Last Admin: 07/05/18 08:35 Dose: 240 mg Docusate Sodium (Colace) 100 mg PO HS [facility] Last Admin: 07/04/18 22:11 Dose: 100 mg Dronedarone (Multaq) 400 mg PO BID[facility] Last Admin: 07/05/18 08:36 Dose: 400 mg Furosemide (Lasix) 40 mg SLOW IVP DAILY [facility] Last Admin: 07/05/18 08:36 Dose: 40 mg Levalbuterol HCl (Xopenex) 0.63 mg NEB Q2H PRN PRN Reason: SOB &/or Wheezing Ondansetron HCl (Zofran) 4 mg SLOW IVP Q6H PRN PRN Reason: Nausea/Vomiting Last Admin: 07/02/18 20:17 Dose: 4 mg Pantoprazole Sodium (Protonix) 40 mg PO DAILY [facility] Last Admin: 07/05/18 08:36 Dose: 40 mg Prednisone (Prednisone) 40 mg PO QAM-WM [facility] Last Admin: 07/05/18 08:36 Dose: 40 mg
[2018-07-04] MEDS: Docusate 100 MG CAP PO SCH (22:11)
[2018-07-05] MEDS: Acetaminophen 325 MG TAB PO PRN ×2 (01:59→22:16)
[2018-07-05 05:02] LABS: #Eosinphils 0.2 thou/uL (0.0-0.7); #Lymphocytes 1.2 thou/uL (1.20-3.40); #Monocytes 0.9 thou/uL (0.11-0.59); #Neutrophils 8.6 thou/uL (1.40-6.50); %Basophils 0.3 % (0.0-1.0); %Eosinophils 1.8 % (0.0-10.0); %Lymphocytes 10.9 % (21.0-51.0); %Monocytes 8.2 % (0.0-10.0); %Neutrophils 78.8 % (42.0-75.0); Hemoglobin 11.5 g/dL (12.0-16.0); Mean Corpuscular HGB CONC 34.7 g/dL (32.0-36.0); Mean Corpuscular Hemoglobin 32.7 pg (27.0-31.0); Mean Corpuscular Volume 94.1 fL (78.0-98.0); Mean Platelet Volume 7.8 fL (7.4-10.4); Platelet Count 297 thou/uL (130-400); RBC Distribution Width 14.7 % (11.5-14.5); Red Blood Cell (RBC) Count 3.52 mill/uL (4.20-5.40); White Blood Cell (WBC) Count 10.9 thou/uL (4.8-10.8)
[2018-07-05 05:21] LABS: Anion Gap 13 mmol/L (10-20); BUN (Urea Nitrogen) 27 mg/dL (9.8-20.1); Calc. Creatinine Clearance 62 mL/min (70-130); Calcium 9.4 mg/dL (7.8-10.44); Carbon Dioxide 28 mmol/L (23-31); Chloride 97 mmol/L (98-107); Estimated GFR-MDRD 70; Glucose 92 mg/dL (83-110); Potassium 3.6 mmol/L (3.5-5.1); Sodium 134 mmol/L (136-145)
[2018-07-05] MEDS: Apixaban 5 MG TAB PO SCH ×2 (08:35→22:09)
[2018-07-05] MEDS: Amoxicillin/Potassium Clav 875 MG TAB PO SCH ×2 (08:36→22:04)
[2018-07-05] MEDS: Furosemide 40 MG/4 ML VIAL SLOW IVP SCH (08:36)
[2018-07-05] MEDS: predniSONE 20 MG TAB PO SCH (08:36)
[2018-07-05] MEDS: Dronedarone HCl 400 MG TAB PO SCH ×2 (08:36→18:25)
[2018-07-05] MEDS ORDERED: Docusate 100 MG CAP PO SCH (09:00)
--- NOTE | 2018-07-05 10:46 | RAD ---
TWO VIEW CHEST: HISTORY: Shortness of breath. Pleural effusions. COMPARISON: 07/03/18. FINDINGS: Small left effusion. Heart size upper normal. There is mild vascular congestion. Streaky infiltrat e and/or atelectasis in the left lung base has a similar appearance to the prior study. Tiny right e ffusion abuts the posterior gutter. Mild hyperexpansion. IMPRESSION: Small bilateral effusions, slightly larger on the left. Mild vascular engorgement and streaky atelec tasis in the left lung base. POS: H
--- NOTE | 2018-07-05 13:56 | PRG ---
DATE OF SERVICE: 07/05/2018 SUBJECTIVE: Ms. Rojas feels fine, had no complaints. PHYSICAL EXAMINATION: VITAL SIGNS: Temperature 99.0, pulse 58, respirations 20, O2 sat 92% on 2 liters, blood pressure 125 /62. HEENT: Unremarkable. NECK: No JVD. LUNGS: Clear. CARDIAC: S1 and S2 regular. ABDOMEN: Soft. EXTREMITIES: No edema. LABORATORY DATA: White blood cell count 10.9, hematocrit 33, platelet count 297. Sodium 134, potass ium 3.6, chloride 97, CO2 20, BUN 27, creatinine 0.8, glucose 92. X-ray shows improvement in the norman ateral effusions and infiltrates. ASSESSMENT: 1. Acute hypoxic respiratory failure, which is improved. 2. Chronic obstructive pulmonary disease with exacerbation. 3. Acute on chronic diastolic heart failure. 4. Obstructive sleep apnea. 5. Atrial fibrillation. 6. Improved pleural effusions. PLAN: Respiratory status is improved with treatment of pulmonary edema with diuretics. She does not need a thoracentesis. Antibiotics will be stopped in a few days after she has reached day 7. She i s stable for transport to [place] if needed. She has a planned electrophysiology procedure in the [facility].
--- NOTE | 2018-07-05 15:26 | PDOC.PN ---
- Subjective Encounter Start Date: 07/05/18 Encounter Start Time: 11:45 Subjective: pt up in bed no complains - Objective Resuscitation Status: Resuscitation Status FULL:Full Resuscitation Vital Signs & Weight: Weight Weight 137 lb 7 oz I&O: 07/04/18 07/05/18 07/06/18 06:59 06:59 06:59 Intake Total 1320 480 Output Total 3050 1200 Balance -1730 -720 Result Diagrams: 07/05/18 04:42 07/05/18 04:42 Phys Exam - Physical Examination HEENT: PERRLA, moist MMs, sclera anicteric, TM's clear, oral pharynx no lesions , 2+ tonsils Neck: no nodes, no JVD, supple, full ROM Respiratory: no wheezing, no rales, no rhonchi, wheezing present, clear to auscultation bilateral Cardiovascular: RRR, no significant murmur, no rub, gallop, irregular Dx/Plan (1) COPD exacerbation Code(s): J44.1 - CHRONIC OBSTRUCTIVE PULMONARY DISEASE W (ACUTE) EXACERBATION Status: Acute Comment: Improved. On Pred 40 and Omnicef Po. (2) Atrial fibrillation Code(s): I48.91 - UNSPECIFIED ATRIAL FIBRILLATION Status: Acute (3) Hypothyroidism Code(s): E03.9 - HYPOTHYROIDISM, UNSPECIFIED Status: Chronic Qualifiers: (4) Diastolic CHF Code(s): I50.30 - UNSPECIFIED DIASTOLIC (CONGESTIVE) HEART FAILURE Status: Chronic Qualifiers: Heart failure chronicity: chronic Qualified Code(s): I50.32 - Chronic diastolic (congestive) heart failure Comment: BNP 700, was 1000 earlier in the year - Plan pt off oxygen -: continue abx/steroids -: will need ablation on saturday in [place] per EP's note * . Review of Systems - Review of Systems ENT: negative: Ear Pain, Ear Discharge, Nose Pain, Nose Discharge, Nose Congestion, Mouth Pain, Mouth Swelling, Throat Pain, Throat Swelling, Other Respiratory: negative: Cough, Dry, Shortness of Breath, Hemoptysis, SOB with Excertion, Pleuritic Pain, Sputum, Wheezing Cardiovascular: negative: chest pain, palpitations, orthopnea, paroxysmal nocturnal dyspnea, edema, light headedness, other Gastrointestinal: negative: Nausea, Vomiting, Abdominal Pain, Diarrhea, Constipation, Melena, Hematochezia, Other - Medications/Allergies Allergies/Adverse Reactions: Allergies Allergy/AdvReac Type Severity Reaction Status Date / Time codeine Allergy Verified 06/20/18 09:46 Medications: Current Medications Acetaminophen (Tylenol) 650 mg PO Q4H PRN PRN Reason: Headache/Fever or Pain Last Admin: 07/05/18 01:59 Dose: 650 mg Albuterol/Ipratropium (Duoneb) 3 ml NEB [id number] PRN PRN Reason: SOB &/or Wheezing Last Admin: 07/02/18 10:05 Dose: 3 ml Amoxicillin/Clavulanate Potassium (Augmentin) 875 mg PO Q12HR [facility] Stop: 07/08/18 21:01 Last Admin: 07/05/18 08:36 Dose: 875 mg Apixaban (Eliquis) 5 mg PO BID [facility] Last Admin: 07/05/18 08:35 Dose: 5 mg Diltiazem HCl (Cardizem Cd) 240 mg PO DAILY [facility] Last Admin: 07/05/18 08:35 Dose: 240 mg Docusate Sodium (Colace) 100 mg PO HS [facility] Last Admin: 07/04/18 22:11 Dose: 100 mg Dronedarone (Multaq) 400 mg PO BID[facility] Last Admin: 07/05/18 08:36 Dose: 400 mg Furosemide (Lasix) 40 mg SLOW IVP DAILY [facility] Last Admin: 07/05/18 08:36 Dose: 40 mg Levalbuterol HCl (Xopenex) 0.63 mg NEB Q2H PRN PRN Reason: SOB &/or Wheezing Ondansetron HCl (Zofran) 4 mg SLOW IVP Q6H PRN PRN Reason: Nausea/Vomiting Last Admin: 07/02/18 20:17 Dose: 4 mg Pantoprazole Sodium (Protonix) 40 mg PO DAILY [facility] Last Admin: 07/05/18 08:36 Dose: 40 mg Prednisone (Prednisone) 40 mg PO QAM-[facility] Last Admin: 07/05/18 08:36 Dose: 40 mg
--- NOTE | 2018-07-05 15:49 | PDOC.CTH ---
Cardiology Progress Note - Subjective No new issues. No new concerns. - Objective Weight 137 lb 7 oz 07/04/18 07/05/18 07/06/18 06:59 06:59 06:59 Intake Total 1320 480 Output Total 3050 1200 Balance -1730 -720 - Physical Examination General/Neuro: alert & oriented x3, NAD Neck: no JVD present Lungs: CTA, unlabored respirations Heart: RRR Abdomen: NT/ND Extremities: other: (No edema.) - Telemetry Telemetry Rhythm: NSR - Labs Result Diagrams: 07/05/18 04:42 07/05/18 04:42 Troponin/CKMB CK-MB (CK-2) 1.7 ng/mL (0-6.6) 07/01/18 08:48 Troponin I 0.010 ng/mL (< 0.028) 07/01/18 08:48 - Assessment/Plan 1. Acute on Chronic Diastolic HF, improved. 2. COPD exacerbation, improved. 3. Persistent Afib/Aflutter - Currently in sinus on Multaq and Diltiazem. Eliquis 5mg BID. Scheduled for redo ablation next week by Dr Mckay in [place] if stable. 4. HTN - stable 5. Hypothyroidism - managed by PCP 6. Suspect CHRISTEN - Sleep study as outpt. 7. Hx of colon Cancer
[2018-07-05] MEDS ORDERED: Senokot 8.6 MG TAB PO PRN ×2 (21:53)
[2018-07-05] MEDS: Docusate 100 MG CAP PO SCH (22:09)
[2018-07-06 06:17] LABS: #Eosinphils 0.1 thou/uL (0.0-0.7); #Lymphocytes 1.4 thou/uL (1.20-3.40); #Monocytes 0.9 thou/uL (0.11-0.59); #Neutrophils 10.4 thou/uL (1.40-6.50); %Basophils 0.3 % (0.0-1.0); %Eosinophils 0.9 % (0.0-10.0); %Lymphocytes 10.8 % (21.0-51.0); Mean Corpuscular HGB CONC 33.8 g/dL (32.0-36.0); Mean Corpuscular Hemoglobin 31.6 pg (27.0-31.0); Mean Corpuscular Volume 93.6 fL (78.0-98.0); Mean Platelet Volume 7.9 fL (7.4-10.4); Platelet Count 396 thou/uL (130-400); RBC Distribution Width 14.9 % (11.5-14.5); Red Blood Cell (RBC) Count 4.12 mill/uL (4.20-5.40); White Blood Cell (WBC) Count 12.8 thou/uL (4.8-10.8)
[2018-07-06 06:35] LABS: Anion Gap 12 mmol/L (10-20); BUN (Urea Nitrogen) 28 mg/dL (9.8-20.1); Calc. Creatinine Clearance 51 mL/min (70-130); Calcium 9.4 mg/dL (7.8-10.44); Carbon Dioxide 29 mmol/L (23-31); Chloride 96 mmol/L (98-107); Estimated GFR-MDRD 56; Glucose 113 mg/dL (83-110); Potassium 3.3 mmol/L (3.5-5.1); Sodium 134 mmol/L (136-145)
[2018-07-06] MEDS: Furosemide 40 MG/4 ML VIAL SLOW IVP SCH (09:49)
[2018-07-06] MEDS: predniSONE 20 MG TAB PO SCH (09:49)
[2018-07-06] MEDS: Apixaban 5 MG TAB PO SCH ×2 (09:50→20:53)
[2018-07-06] MEDS: Amoxicillin/Potassium Clav 875 MG TAB PO SCH ×2 (09:50→20:53)
[2018-07-06] MEDS: Dronedarone HCl 400 MG TAB PO SCH ×2 (09:50→17:43)
[2018-07-06] MEDS ORDERED: Potassium Chloride 20 MEQ TAB PO SCH (10:00)
--- NOTE | 2018-07-06 13:30 | PRG ---
DATE OF SERVICE: 07/06/2018 SUBJECTIVE: The patient is doing fine, has no complaints. PHYSICAL EXAMINATION: VITAL SIGNS: Temperature 97.7, pulse 133, respirations 22, O2 sat 94% on room air. HEENT: Unremarkable. NECK: No JVD. CHEST: Clear. CARDIAC: S1, S2, tachycardic. ABDOMEN: Soft. EXTREMITIES: No edema. LABORATORY DATA: White blood cell count 12.8, hematocrit 38.6, platelet count 396,000. Sodium 134, potassium 3.3, chloride 96, CO2 29, BUN 28, creatinine 0.9, glucose 113. ASSESSMENT: 1. Stable pulmonary status. 2. Resolved pleural effusions. 3. Congestive heart failure. 4. Atrial fibrillation. PLAN: Continue conservative management.
--- NOTE | 2018-07-06 17:08 | PDOC.PN ---
- Subjective Encounter Start Date: 07/06/18 Encounter Start Time: 13:00 Subjective: pt up in chair no complains -: her heart rate increases when she get up - Objective Resuscitation Status: Resuscitation Status FULL:Full Resuscitation Vital Signs & Weight: Vital Signs (12 hours) Temp Pulse Resp BP BP Pulse Ox 07/06/18 11:42 97.5 F L 77 16 139/66 100 07/06/18 08:16 97.7 F 133 H 22 H 111/61 94 L Weight Weight 137 lb 7 oz I&O: 07/05/18 07/06/18 07/07/18 06:59 06:59 06:59 Intake Total 480 480 Output Total 1200 2200 Balance -720 -1720 Result Diagrams: 07/06/18 06:09 07/06/18 06:09 Additional Labs: Accuchecks 07/06/18 11:08 POC Glucose 146 H Phys Exam - Physical Examination HEENT: PERRLA, moist MMs, sclera anicteric, TM's clear, oral pharynx no lesions , 2+ tonsils Neck: no nodes, no JVD, supple, full ROM Respiratory: no wheezing, no rales, no rhonchi, wheezing present, clear to auscultation bilateral Cardiovascular: RRR, no significant murmur, no rub, gallop, irregular Gastrointestinal: soft, non-tender, no distention, positive bowel sounds Dx/Plan (1) COPD exacerbation Code(s): J44.1 - CHRONIC OBSTRUCTIVE PULMONARY DISEASE W (ACUTE) EXACERBATION Status: Acute Comment: Improved. On Pred 40 and Omnicef Po. (2) Atrial fibrillation Code(s): I48.91 - UNSPECIFIED ATRIAL FIBRILLATION Status: Acute (3) Hypothyroidism Code(s): E03.9 - HYPOTHYROIDISM, UNSPECIFIED Status: Chronic Qualifiers: (4) Diastolic CHF Code(s): I50.30 - UNSPECIFIED DIASTOLIC (CONGESTIVE) HEART FAILURE Status: Chronic Qualifiers: Heart failure chronicity: chronic Qualified Code(s): I50.32 - Chronic diastolic (congestive) heart failure Comment: BNP 700, was 1000 earlier in the year - Plan per ep she was suppose to be discharged next week for ablation -: pt does get tachycardiac at times with movement. -: will discharge if ok with ep in am -: from pulmonary stand point she is doing well and is off oxygen. * . Review of Systems - Review of Systems Respiratory: negative: Cough, Dry, Shortness of Breath, Hemoptysis, SOB with Excertion, Pleuritic Pain, Sputum, Wheezing Cardiovascular: negative: chest pain, palpitations, orthopnea, paroxysmal nocturnal dyspnea, edema, light headedness, other Gastrointestinal: negative: Nausea, Vomiting, Abdominal Pain, Diarrhea, Constipation, Melena, Hematochezia, Other Genitourinary: negative: Dysuria, Frequency, Incontinence, Hematuria, Retention , Other - Medications/Allergies Allergies/Adverse Reactions: Allergies Allergy/AdvReac Type Severity Reaction Status Date / Time codeine Allergy Verified 06/20/18 09:46 Medications: Current Medications Acetaminophen (Tylenol) 650 mg PO Q4H PRN PRN Reason: Headache/Fever or Pain Last Admin: 07/05/18 22:16 Dose: 650 mg Albuterol/Ipratropium (Duoneb) 3 ml NEB [id number] PRN PRN Reason: SOB &/or Wheezing Last Admin: 07/02/18 10:05 Dose: 3 ml Amoxicillin/Clavulanate Potassium (Augmentin) 875 mg PO Q12HR [facility] Stop: 07/08/18 21:01 Last Admin: 07/06/18 09:50 Dose: 875 mg Apixaban (Eliquis) 5 mg PO BID [facility] Last Admin: 07/06/18 09:50 Dose: 5 mg Diltiazem HCl (Cardizem Cd) 240 mg PO DAILY [facility] Last Admin: 07/06/18 09:50 Dose: 240 mg Docusate Sodium (Colace) 100 mg PO HS [facility] Last Admin: 07/05/18 22:09 Dose: 100 mg Dronedarone (Multaq) 400 mg PO BID[facility] Last Admin: 07/06/18 09:50 Dose: 400 mg Furosemide (Lasix) 40 mg SLOW IVP DAILY [facility] Last Admin: 07/06/18 09:49 Dose: 40 mg Lactulose (Lactulose) 20 gm PO BIDPRN PRN PRN Reason: Constipation Levalbuterol HCl (Xopenex) 0.63 mg NEB Q2H PRN PRN Reason: SOB &/or Wheezing Ondansetron HCl (Zofran) 4 mg SLOW IVP Q6H PRN PRN Reason: Nausea/Vomiting Last Admin: 07/02/18 20:17 Dose: 4 mg Pantoprazole Sodium (Protonix) 40 mg PO DAILY [facility] Last Admin: 07/06/18 09:50 Dose: 40 mg Prednisone (Prednisone) 40 mg PO [facility] Last Admin: 07/06/18 09:49 Dose: 40 mg Senna (Senokot) 1 tab PO BIDPRN PRN PRN Reason: Constipation Senna (Senokot) 2 tab PO BIDPRN PRN PRN Reason: Constipation unrelieved by 1 T Last Admin: 07/05/18 22:04 Dose: 2 tab
--- NOTE | 2018-07-06 19:47 | PDOC.CTH ---
Cardiology Progress Note - Subjective Doing well. No new issues. - Objective Vital Signs Temp Pulse Resp BP BP Pulse Ox 07/06/18 16:17 97.5 F L 78 18 107/65 95 07/06/18 11:42 97.5 F L 77 16 139/66 100 07/06/18 08:16 97.7 F 133 H 22 H 111/61 94 L Weight 137 lb 7 oz 07/05/18 07/06/18 07/07/18 06:59 06:59 06:59 Intake Total 480 480 Output Total 1200 2200 1500 Balance -720 -1720 -1500 - Physical Examination General/Neuro: alert & oriented x3, NAD Neck: no JVD present Lungs: unlabored respirations Heart: RRR Abdomen: NT/ND Extremities: other: (no edema.) - Telemetry Telemetry Rhythm: NSR - Labs Result Diagrams: 07/06/18 06:09 07/06/18 06:09 Troponin/CKMB CK-MB (CK-2) 1.7 ng/mL (0-6.6) 07/01/18 08:48 Troponin I 0.010 ng/mL (< 0.028) 07/01/18 08:48 - Assessment/Plan 1. Acute on Chronic Diastolic HF, improved. 2. COPD exacerbation, improved. 3. Persistent Afib/Aflutter May discharge home any time from cardiac perspective Scheduled for redo ablation this Saturday by Dr Mckay in [place]. 4. HTN - stable 5. Hypothyroidism - managed by PCP 6. Suspect CHRISTEN - Sleep study as outpt. 7. Hx of colon Cancer 8. Hypokalemia, replace K.
[2018-07-06] MEDS: Docusate 100 MG CAP PO SCH (20:53)
[2018-07-07] MEDS: Acetaminophen 325 MG TAB PO PRN (03:34)
[2018-07-07 04:58] LABS: #Eosinphils 0.1 thou/uL (0.0-0.7); #Lymphocytes 1.1 thou/uL (1.20-3.40); #Monocytes 0.9 thou/uL (0.11-0.59); #Neutrophils 8.8 thou/uL (1.40-6.50); %Basophils 0.1 % (0.0-1.0); %Eosinophils 0.6 % (0.0-10.0); %Lymphocytes 9.7 % (21.0-51.0); %Monocytes 8.2 % (0.0-10.0); %Neutrophils 81.4 % (42.0-75.0); Hemoglobin 12.6 g/dL (12.0-16.0); Mean Corpuscular HGB CONC 34.4 g/dL (32.0-36.0); Mean Corpuscular Hemoglobin 32.1 pg (27.0-31.0); Mean Corpuscular Volume 93.2 fL (78.0-98.0); Mean Platelet Volume 7.7 fL (7.4-10.4); Platelet Count 357 thou/uL (130-400); RBC Distribution Width 14.9 % (11.5-14.5); Red Blood Cell (RBC) Count 3.94 mill/uL (4.20-5.40); White Blood Cell (WBC) Count 10.8 thou/uL (4.8-10.8)
[2018-07-07 05:11] LABS: Anion Gap 14 mmol/L (10-20); BUN (Urea Nitrogen) 29 mg/dL (9.8-20.1); Calc. Creatinine Clearance 56 mL/min (70-130); Calcium 9.3 mg/dL (7.8-10.44); Carbon Dioxide 26 mmol/L (23-31); Chloride 97 mmol/L (98-107); Estimated GFR-MDRD 63; Glucose 122 mg/dL (83-110); Potassium 3.8 mmol/L (3.5-5.1); Sodium 133 mmol/L (136-145)
[2018-07-07] MEDS: Dronedarone HCl 400 MG TAB PO SCH (09:03)
[2018-07-07] MEDS: Amoxicillin/Potassium Clav 875 MG TAB PO SCH ×2 (09:03→21:04)
[2018-07-07] MEDS: Apixaban 5 MG TAB PO SCH ×2 (09:03→21:04)
[2018-07-07] MEDS: Furosemide 40 MG/4 ML VIAL SLOW IVP SCH (09:04)
[2018-07-07] MEDS: predniSONE 20 MG TAB PO SCH (09:04)
--- NOTE | 2018-07-07 11:40 | PDOC.CTH ---
Cardiology Progress Note - Subjective EP progress note. patient seen and evaluated. Feels well and is breathing well today. Now having palpitations and some heart racing. No PRN nebs needed overnight. - Objective Vital Signs Temp Pulse Resp BP Pulse Ox 07/07/18 09:03 125 H 07/07/18 08:05 97.8 F 125 H 20 120/77 95 07/07/18 04:10 96.9 F L 102 H 18 110/80 94 L Weight 137 lb 9.6 oz 07/06/18 07/07/18 07/08/18 06:59 06:59 06:59 Intake Total 480 490 Output Total 2200 0 Balance -1720 -1560 - Physical Examination General/Neuro: alert & oriented x3, NAD Neck: carotid US brisk, no JVD present Lungs: unlabored respirations (fine RLL crackles) Heart: PMI normal, other: (AF RVR) Abdomen: no HSM, NT/ND, soft - Telemetry Telemetry Rhythm: AF RVR - Labs Result Diagrams: 07/07/18 04:45 07/07/18 04:45 Troponin/CKMB CK-MB (CK-2) 1.7 ng/mL (0-6.6) 07/01/18 08:48 Troponin I 0.010 ng/mL (< 0.028) 07/01/18 08:48 - Assessment/Plan 1. Persistent atrial fibrillation/atypical flutter. Converted to fib/flutter yesterday at 1100. Scheduled for redo ablation Saturday with Dr. Mckay. Poor rate control today. Additional diltiazem ordered. BP stable. Stopping multaq pre ablation. Continue eliquis 2. CHF exacerbation- resolved 3. COPD exacerbation- on PO prednisone. stable 4. Elevated chads vasc: 2 (advancing age, female gender) on Eliquis. continue, especially considering her upcoming ablation next week Continue current medication regiment of cartia and eliquis. Discussed patient with Dr Mckay who wanted the multaq stopped and to continue attempted rate control with Cartia. OK to continue with redo ablation on Saturday in [place]. Difficult IV access. Midline was placed over the weekend. patient has requested keeping in place upon DC in light of up upcoming ablation, which is not unreasonable. Be sure to DC patient with documentation of the midline insertion so next facility can use the line.
--- NOTE | 2018-07-07 11:44 | PDOC.CTH ---
Cardiology Progress Note - Objective Vital Signs Temp Pulse Resp BP Pulse Ox 07/07/18 09:03 125 H 07/07/18 08:05 97.8 F 125 H 20 120/77 95 07/07/18 04:10 96.9 F L 102 H 18 110/80 94 L Weight 137 lb 9.6 oz 07/06/18 07/07/18 07/08/18 06:59 06:59 06:59 Intake Total 480 490 Output Total 2200 2049 Balance -1720 -1560 - Labs Result Diagrams: 07/07/18 04:45 07/07/18 04:45 Troponin/CKMB CK-MB (CK-2) 1.7 ng/mL (0-6.6) 07/01/18 08:48 Troponin I 0.010 ng/mL (< 0.028) 07/01/18 08:48 - Assessment/Plan 1. Persistent Afib/Aflutter - Converted to fib/flutter since 07/07/18 at 1100. At this moment, in Aflutter with HR 120-130s. Multaq in on hold due to possible Ablation on Saturday by Dr. Mckay. Still poor controlled HR after additional diltiazem was ordered. On Eliquis 5mg BID (chads vasc is 2 ( advancing age, female gender)). Start Digoxin from today. Cont. to monitor 2. Acute on Chronic Diastolic HF - her SOB has been improving with Prednisone and Lasix IV 40mg qd. Lasix was changed from IV to PO 40mg qd since she may d/ dot tomorrow. NO BBlocker due to hx of severe COPD. May start BRIA/ARB with stable VS. 3. COPD exacerbation- on PO prednisone. stable 4. HTN - stable 5. Hypothyroidism - managed by PCP 6. Suspect CHRISTEN - Sleep study as outpt. 7. Hx of colon Cancer 8. Hypokalemia, replace KGladis GARCIA reviewed *Plan: Ablation on 07/09/18, by Dr Mckay in [place].
[2018-07-07] MEDS ORDERED: Diltiazem HCl SR 60 mg Capsule PO SCH (12:00)
[2018-07-07] MEDS ORDERED: Digoxin 0.5 MG/2 ML AMP SLOW IVP SCH ×2 (12:30→12:45)
--- NOTE | 2018-07-07 15:35 | PDOC.PN ---
- Subjective Encounter Start Date: 07/07/18 Encounter Start Time: 10:00 Subjective: pt up in bed on the phone - Objective Resuscitation Status: Resuscitation Status FULL:Full Resuscitation Vital Signs & Weight: Vital Signs (12 hours) Temp Pulse Resp BP Pulse Ox 07/07/18 14:18 125 H 07/07/18 09:03 125 H 07/07/18 08:05 97.8 F 125 H 20 120/77 95 07/07/18 04:10 96.9 F L 102 H 18 110/80 94 L Weight Weight 137 lb 9.6 oz I&O: 07/06/18 07/07/18 07/08/18 06:59 06:59 06:59 Intake Total 480 490 Output Total 2199 2049 Balance -1720 -1560 Result Diagrams: 07/07/18 04:45 07/07/18 04:45 Additional Labs: Accuchecks 07/07/18 05:43 POC Glucose 91 Phys Exam - Physical Examination Respiratory: no wheezing, no rales, no rhonchi, wheezing present, clear to auscultation bilateral Cardiovascular: RRR, no significant murmur, no rub, gallop, irregular Gastrointestinal: soft, non-tender, no distention, positive bowel sounds Musculoskeletal: no edema, pulses present, edema present Dx/Plan (1) COPD exacerbation Code(s): J44.1 - CHRONIC OBSTRUCTIVE PULMONARY DISEASE W (ACUTE) EXACERBATION Status: Acute Comment: Improved. On Pred 40 and Omnicef Po. (2) Atrial fibrillation Code(s): I48.91 - UNSPECIFIED ATRIAL FIBRILLATION Status: Acute (3) Hypothyroidism Code(s): E03.9 - HYPOTHYROIDISM, UNSPECIFIED Status: Chronic Qualifiers: (4) Diastolic CHF Code(s): I50.30 - UNSPECIFIED DIASTOLIC (CONGESTIVE) HEART FAILURE Status: Chronic Qualifiers: Heart failure chronicity: chronic Qualified Code(s): I50.32 - Chronic diastolic (congestive) heart failure Comment: BNP 700, was 1000 earlier in the year - Plan pt's heart rate still increases with ambulation -: will contact ep for plan -: continue current meds * . Review of Systems - Review of Systems Respiratory: negative: Cough, Dry, Shortness of Breath, Hemoptysis, SOB with Excertion, Pleuritic Pain, Sputum, Wheezing Cardiovascular: chest pain, palpitations, orthopnea, paroxysmal nocturnal dyspnea, edema, light headedness, other Gastrointestinal: negative: Nausea, Vomiting, Abdominal Pain, Diarrhea, Constipation, Melena, Hematochezia, Other - Medications/Allergies Allergies/Adverse Reactions: Allergies Allergy/AdvReac Type Severity Reaction Status Date / Time codeine Allergy Verified 06/20/18 09:46 Medications: Current Medications Acetaminophen (Tylenol) 650 mg PO Q4H PRN PRN Reason: Headache/Fever or Pain Last Admin: 07/07/18 03:34 Dose: 650 mg Albuterol/Ipratropium (Duoneb) 3 ml NEB [id number] PRN PRN Reason: SOB &/or Wheezing Last Admin: 07/02/18 10:05 Dose: 3 ml Amoxicillin/Clavulanate Potassium (Augmentin) 875 mg PO Q12HR [facility] Stop: 07/08/18 21:01 Last Admin: 07/07/18 09:03 Dose: 875 mg Apixaban (Eliquis) 5 mg PO BID [facility] Last Admin: 07/07/18 09:03 Dose: 5 mg Digoxin (Lanoxin) 0.25 mg SLOW IVP Q6H [facility] Stop: 07/08/18 00:01 Digoxin (Lanoxin) [facility] Diltiazem HCl (Cardizem Cd) 300 mg PO DAILY [facility] Docusate Sodium (Colace) 100 mg PO HS [facility] Last Admin: 07/06/18 20:53 Dose: 100 mg Furosemide (Lasix) 40 mg PO DAILY[facility] Lactulose (Lactulose) 20 gm PO BIDPRN PRN PRN Reason: Constipation Levalbuterol HCl (Xopenex) 0.63 mg NEB Q2H PRN PRN Reason: SOB &/or Wheezing Ondansetron HCl (Zofran) 4 mg SLOW IVP Q6H PRN PRN Reason: Nausea/Vomiting Last Admin: 07/02/18 20:17 Dose: 4 mg Pantoprazole Sodium (Protonix) 40 mg PO DAILY [facility] Last Admin: 07/07/18 09:04 Dose: 40 mg Prednisone (Prednisone) 40 mg PO QAM[facility] Last Admin: 07/07/18 09:04 Dose: 40 mg Senna (Senokot) 1 tab PO BIDPRN PRN PRN Reason: Constipation Senna (Senokot) 2 tab PO BIDPRN PRN PRN Reason: Constipation unrelieved by 1 T Last Admin: 07/05/18 22:04 Dose: 2 tab Sodium Chloride (Flush - Normal Saline) 10 ml IVF Q12HR [facility] Sodium Chloride (Flush - Normal Saline) 10 ml IVF PRN PRN PRN Reason: Saline Flush
[2018-07-07] MEDS: Digoxin 0.5 MG/2 ML AMP SLOW IVP SCH (18:34)
[2018-07-07] MEDS: Docusate 100 MG CAP PO SCH (21:05)
[2018-07-08] MEDS: Digoxin 0.5 MG/2 ML AMP SLOW IVP SCH (00:25)
[2018-07-08 03:59] LABS: #Basophils 0.1 thou/uL (0.0-0.2); #Eosinphils 0.1 thou/uL (0.0-0.7); #Lymphocytes 1.1 thou/uL (1.20-3.40); #Neutrophils 10.2 thou/uL (1.40-6.50); %Basophils 0.5 % (0.0-1.0); %Eosinophils 0.5 % (0.0-10.0); %Lymphocytes 8.9 % (21.0-51.0); %Monocytes 8.1 % (0.0-10.0); Hemoglobin 13.1 g/dL (12.0-16.0); Mean Corpuscular HGB CONC 34.7 g/dL (32.0-36.0); Mean Corpuscular Hemoglobin 32.3 pg (27.0-31.0); Mean Corpuscular Volume 93.1 fL (78.0-98.0); Mean Platelet Volume 7.5 fL (7.4-10.4); Platelet Count 398 thou/uL (130-400); RBC Distribution Width 14.5 % (11.5-14.5); Red Blood Cell (RBC) Count 4.05 mill/uL (4.20-5.40); White Blood Cell (WBC) Count 12.4 thou/uL (4.8-10.8)
[2018-07-08 04:18] LABS: Anion Gap 13 mmol/L (10-20); BUN (Urea Nitrogen) 27 mg/dL (9.8-20.1); Calc. Creatinine Clearance 57 mL/min (70-130); Calcium 9.3 mg/dL (7.8-10.44); Carbon Dioxide 27 mmol/L (23-31); Chloride 97 mmol/L (98-107); Estimated GFR-MDRD 64; Glucose 99 mg/dL (83-110); Potassium 3.9 mmol/L (3.5-5.1); Sodium 133 mmol/L (136-145)
[2018-07-08] MEDS ORDERED: Levothyroxine Sodium 50 MCG TAB PO SCH (06:00)
[2018-07-08] MEDS ORDERED: Furosemide 40 MG TAB PO SCH (07:30)
[2018-07-08] MEDS: predniSONE 20 MG TAB PO SCH (08:49)
[2018-07-08] MEDS: Amoxicillin/Potassium Clav 875 MG TAB PO SCH (08:49)
[2018-07-08] MEDS: Apixaban 5 MG TAB PO SCH (08:49)
[2018-07-08] MEDS ORDERED: Diltiazem HCl CD 300 mg Capsule PO SCH (09:00)
[2018-07-08] MEDS ORDERED: Digoxin 0.125 MG TAB PO SCH (09:00)
--- NOTE | 2018-07-08 09:08 | PDOC.CTH ---
Cardiology Progress Note - Subjective The pt seen and examined. No overnight events. No cardiac complaints. - Objective Vital Signs Temp Pulse Resp BP Pulse Ox 07/08/18 08:50 66 07/08/18 07:27 98.1 F 66 16 104/56 L 95 07/08/18 03:29 97.9 F 77 20 124/66 96 07/08/18 00:25 86 Weight 138 lb 07/07/18 07/08/18 07/09/18 06:59 06:59 06:59 Intake Total 490 490 Output Total 2050 Balance -1560 490 - Physical Examination General/Neuro: alert & oriented x3 Neck: no JVD present Lungs: CTA Heart: other: (irregular) Abdomen: NT/ND, soft Extremities: other: (No edema) - Telemetry Telemetry Rhythm: AFib/flutter 60-70s - Labs Result Diagrams: 07/08/18 03:40 07/08/18 03:30 Troponin/CKMB CK-MB (CK-2) 1.7 ng/mL (0-6.6) 07/01/18 08:48 Troponin I 0.010 ng/mL (< 0.028) 07/01/18 08:48 - Assessment/Plan 1. Persistent Afib/Aflutter - Her HR has been well controlled with Diltiazem 300mg qd and Digoxin. Digoxin is on hold from this AM and Multaq is on hold due to possible Ablation on Saturday by Dr. Mckay. On Eliquis 5mg BID (chads vasc is 2 (advancing age, female gender)). 2. Acute on Chronic Diastolic HF - her SOB has been improving with Prednisone and Lasix IV 40mg qd. Lasix was changed from IV to PO 40mg qd since she may d/ dot tomorrow. NO BBlocker due to hx of severe COPD. May start BRIA/ARB with stable VS. 3. COPD exacerbation- Stable with RA. On PO prednisone. stable 4. HTN - stable 5. Hypothyroidism - managed by PCP 6. Suspect CHRISTEN - Sleep study as outpt. 7. Hx of colon Cancer 8. Hypokalemia, replace Sky GARCIA reviewed *Plan: Ablation on 07/09/18, by Dr Mckay in [place], [place]. * Discharge with IV for tomorrow's procedure. * The pt will f/u with Dr Barakat' office after she f/u with Dr Jaeger office. Review of Systems - Review of Systems Constitutional: reports: no symptoms reported EENTM: reports: no symptoms reported Respiratory: reports: no symptoms reported Cardiac (ROS): reports: no symptoms reported ABD/GI: reports: no symptoms reported : reports: no symptoms reported
--- NOTE | 2018-07-08 11:36 | PDOC.CTH ---
Cardiology Progress Note - Subjective EP progress note: Feeling very well this AM. Breathing and HR stable. No cardiac complaints - Objective Vital Signs Temp Pulse Resp BP Pulse Ox 07/08/18 08:50 66 07/08/18 07:27 98.1 F 66 16 104/56 L 95 07/08/18 03:29 97.9 F 77 20 124/66 96 07/08/18 00:25 86 Weight 138 lb 07/07/18 07/08/18 07/09/18 06:59 06:59 06:59 Intake Total 490 490 Output Total 2050 Balance -1560 490 - Physical Examination General/Neuro: alert & oriented x3, NAD Neck: carotid US brisk, no JVD present Lungs: unlabored respirations (fine bibasilar crackles) Heart: PMI normal Abdomen: no HSM, NT/ND - Telemetry Telemetry Rhythm: Parox. atrial flutter - Labs Result Diagrams: 07/08/18 03:40 07/08/18 03:30 Troponin/CKMB CK-MB (CK-2) 1.7 ng/mL (0-6.6) 07/01/18 08:48 Troponin I 0.010 ng/mL (< 0.028) 07/01/18 08:48 - Assessment/Plan 1. Persistent atrial fibrillation/atypical flutter. Rate controlled paroxysmal AF with increased CCB and IV Digoxin. 2. CHF exacerbation- mild, resolved 3. COPD exacerbation- on PO prednisone. stable 4. Elevated chads vasc: 2 (advancing age, female gender) on Eliquis. continue, especially considering her upcoming ablation next week Continue current medication regiment of cartia and eliquis. Multaq stopped. Stop digoxin. Ok to DC for redo RFA tomorrow with Dr Mckay.
[2018-07-08 16:32] VITALS: BP 129/70; TEMP 98
== END 2018-07-08 17:47 | disposition home or self-care (01) | DRG 189 ==
LOC: ERS 07:33 → IMCU/EMU 08:34 → 2NO 07-04 16:16
PROVIDERS: ADMIT Internal Medicine; ATTEND Internal Medicine
PROC: 5A09357 Assistance with Respiratory Ventilation, Less than 24 Consecutive Hours, Continuous Positive Airway Pressure (ICD-10-PCS; principal; 2018-07-02)
DX: J96.01 Acute respiratory failure with hypoxia (principal); I50.33 Acute on chronic diastolic (congestive) heart failure; J44.1 Chronic obstructive pulmonary disease with (acute) exacerbation; I48.92 Unspecified atrial flutter; E03.9 Hypothyroidism, unspecified; I34.0 Nonrheumatic mitral (valve) insufficiency; I48.0 Paroxysmal atrial fibrillation; G47.33 Obstructive sleep apnea (adult) (pediatric); I11.0 Hypertensive heart disease with heart failure; E87.6 Hypokalemia; Z85.038 Personal history of other malignant neoplasm of large intestine; Z87.891 Personal history of nicotine dependence
CPT/HCPCS: 36415; 36416; 71045; 71046; 80048; 82553; 83735; 83880; 84100; 84484; 85025; 85379; 87040; 93005; 94640; 94660; A4216; G8978-GP-CJ; G8979-GP-CJ; G8980-GP-CJ; J0696; J1160; J1650; J1940; J2405; J7050; J7506; J7614; J7620; J7644

== ENCOUNTER 2018-08-15 07:59 | Day surgery (SDC) | payer MEDICARE, OTHER ==
[2018-08-14 18:03] VITALS: BMI 21.2
[2018-08-15 08:36] LABS: #Eosinphils 0.1 thou/uL (0.0-0.7); #Lymphocytes 0.9 thou/uL (1.20-3.40); #Monocytes 0.6 thou/uL (0.11-0.59); #Neutrophils 4.2 thou/uL (1.40-6.50); %Basophils 0.8 % (0.0-1.0); %Eosinophils 2.3 % (0.0-10.0); %Lymphocytes 15.3 % (21.0-51.0); %Monocytes 9.8 % (0.0-10.0); %Neutrophils 71.8 % (42.0-75.0); Hemoglobin 11.7 g/dL (12.0-16.0); Mean Corpuscular HGB CONC 31.7 g/dL (32.0-36.0); Mean Corpuscular Hemoglobin 29.1 pg (27.0-31.0); Mean Corpuscular Volume 91.6 fL (78.0-98.0); Mean Platelet Volume 7.5 fL (7.4-10.4); Platelet Count 333 thou/uL (130-400); RBC Distribution Width 13.8 % (11.5-14.5); Red Blood Cell (RBC) Count 4.03 mill/uL (4.20-5.40); White Blood Cell (WBC) Count 5.8 thou/uL (4.8-10.8)
[2018-08-15 08:43] LABS: INR-International Normal Ratio 1.4; PTT 38.4 SEC (22.9-36.1); Prothrombin Time 17.3 SEC (12.0-14.7)
[2018-08-15 08:53] LABS: Anion Gap 13 mmol/L (10-20); BUN (Urea Nitrogen) 14 mg/dL (9.8-20.1); Calc. Creatinine Clearance 52 mL/min (70-130); Calcium 9.8 mg/dL (7.8-10.44); Carbon Dioxide 25 mmol/L (23-31); Chloride 107 mmol/L (98-107); Estimated GFR-MDRD 58; Glucose 98 mg/dL (83-110); Potassium 4.8 mmol/L (3.5-5.1); Sodium 140 mmol/L (136-145)
[2018-08-15] MEDS ORDERED: PROPOFOL 20 ML ONE (08:59)
--- NOTE | 2018-08-15 10:08 | OP ---
ELECTRICAL CARDIOVERSION: Date: 08/15/18 This is a 72-year-old female who has undergone atrial fibrillation ablation in the past. She presente d again with what appears to be atrial flutter at this time. She was recently seen in the office by e lectrophysiologist and she had atrial fibrillation/flutter, and was advised to undergo an electrical cardioversion. She underwent a recent ablation within the last month or so and was advised to have a repeat cardioversion after she was noted to be in tachycardia again with heart rates in the 100s-130s . She was taken to recovery area where she underwent the procedure, after she was given short-acting appropriate. She tolerated the procedure well. Using one attempt at 100 joules, she was successfully converted from atrial flutter back to normal sinus rhythm. There were no difficulties or complication s encountered.
--- NOTE | 2018-08-15 13:03 | DIS ---
DATE OF PROCEDURE: This was an outpatient procedure performed on 08/15/2018. DIAGNOSES: Atrial fibrillation or flutter, appeared to be atrial flutter. She is status post ablati ons. She has a history of COPD. She has gastroesophageal reflux disease. She has history of colon cancer in the past, but in remission. DISCHARGE DIAGNOSES: Atrial fibrillation or flutter, appeared to be atrial flutter. She is status p ost ablations. She has a history of COPD. She has gastroesophageal reflux disease. She has history of colon cancer in the past, but in remission. She has now converted back to sinus rhythm. PROCEDURE IN HOSPITAL: Included electrocardioversion of atrial flutter back to normal sinus rhythm. DISCHARGE MEDICATIONS: Multaq 400 mg b.i.d., Eliquis 5 mg b.i.d., Lasix 20 mg before food, I believe she takes 2 of these which is 40 mg, DuoNebs every 4 hours as needed, Levothyroxine 50 mcg q.a.m. an d she also takes Dulera 200 mcg/5 mcg inhaler 2 puffs b.i.d. FOLLOWUP: She will follow up with certified professional controller in the next 2-4 weeks and I will also see her back in the office at her routine scheduled followup appointment. COMPLICATIONS: There were no difficulties or complications. HOSPITAL COURSE: This is a very pleasant 72-year-old female who has had a history of atrial fibrilla tion and atrial flutter with rapid heart rates, difficult to control. She underwent ablation and her Multaq apparently had been discontinued and she had a successful ablation and then she presented aga in for followup and was noted to be back in atrial flutter or atrial fibrillation. It appears to be more of atrial flutter. She may need to undergo a repeat ablation for the flutter, but for the proce dure today, she was noted to be in the flutter and with one attempt at 100 joules she was successfull y converted back to sinus rhythm without any difficulties or complications. We will have her follow up with certified professional controller at her scheduled time.
--- NOTE | 2018-08-17 17:49 | EKG ---
Test Reason : PREOP CARDISOVERSION Blood Pressure : / mmHG Vent. Rate : 130 BPM Atrial Rate : 130 BPM P-R Int : 126 ms QRS Dur : 072 ms QT Int : 324 ms P-R-T Axes : 086 027 105 degrees QTc Int : 476 ms Sinus tachycardia T wave abnormality, consider anterolateral ischemia Abnormal ECG When compared with ECG of 01-JUL-2018 07:41, Vent. rate has increased BY 67 BPM Non-specific change in ST segment in Inferior leads Nonspecific T wave abnormality no longer evident in Inferior leads T wave inversion more evident in Anterolateral leads Confirmed by JIMI BOWENS (2) on 08/17/2018 5:48:45 PM Referred By: RICH Confirmed By:JIMI BOWENS
--- NOTE | 2018-08-17 17:51 | EKG ---
Test Reason : POST CARDIOVERSION Blood Pressure : / mmHG Vent. Rate : 077 BPM Atrial Rate : 077 BPM P-R Int : 186 ms QRS Dur : 080 ms QT Int : 408 ms P-R-T Axes : 082 029 098 degrees QTc Int : 461 ms Normal sinus rhythm Nonspecific T wave abnormality Abnormal ECG When compared with ECG of 15-AUG-2018 08:31, (Unconfirmed) Vent. rate has decreased BY 53 BPM Non-specific change in ST segment in Inferior leads T wave inversion less evident in Anterior leads Confirmed by JIMI BOWENS (2) on 08/17/2018 5:51:07 PM Referred By: RICH Confirmed By:JIMI BOWENS
== END 2018-08-15 11:00 | disposition home or self-care (01) ==
LOC: SDC 07:59
PROVIDERS: ATTEND Internal Medicine Cardiovascular Disease
PROC: 5A2204Z Restoration of Cardiac Rhythm, Single (ICD-10-PCS; principal; 2018-08-15)
DX: I48.92 Unspecified atrial flutter (principal); I48.91 Unspecified atrial fibrillation; J44.9 Chronic obstructive pulmonary disease, unspecified; K21.9 Gastro-esophageal reflux disease without esophagitis; Z85.038 Personal history of other malignant neoplasm of large intestine; Z79.01 Long term (current) use of anticoagulants; Z79.899 Other long term (current) drug therapy; Z88.5 Allergy status to narcotic agent; Z90.49 Acquired absence of other specified parts of digestive tract
CPT/HCPCS: 36415; 80048; 85025; 85610; 85730; 92960; 93005; 93010; J2704